=== PATIENT | male | born 1925 | race African-American/Black ===

== ENCOUNTER 2016-09-22 12:58 | Inpatient (IN) | payer MEDICARE, BC ==
[~2016-09-22 12:58] MED LIST: CHOL4 GT; DUONI NEB; ENOX40P SQ; HYOS0.1231 GT; LACTG GT; LEVO.112 G-TUBE; LOMO PO; MIRA0.25 GT; MURO2SOL OP; NORC7.5T PO; ROTI4DIS TD; SINE25100 GT; XALA0.00 EACH EYE
[2016-09-22 13:32] VITALS: BP 106/57; PULSE 85; RESP 16; TEMP 99.2; O2SAT 95
[2016-09-22] MEDS ORDERED: SODIUM CHLOR 0.9% 1000 ML INJ 1,000 ML IV SCH (13:44)
[2016-09-22] MEDS ORDERED: NEBUMIS6 INH (13:45)
[2016-09-22] MEDS ORDERED: FAMO20TA2 PO (13:45)
[2016-09-22] MEDS ORDERED: IPRASOL INH (13:45)
[2016-09-22] MEDS ORDERED: HYOS0.128 PO (13:45)
[2016-09-22] MEDS ORDERED: OXYB5TAB10 PO (13:45)
[2016-09-22] MEDS ORDERED: SODIUM CHLORIDE 0.9% FLUSH 10 ML FLUSH IVF PRN (13:45)
--- NOTE | 2016-09-22 14:11 | PD ---
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 The patient has a history of Parkinson's disease and then had a hypoxic event while hospitalized secondary to aspiration. The patient currently has contractures of the upper and lower extremities and is bedbound. The patient does have home nursing care and lives at home with family. The family states they were unable to flush the GJ tube earlier today. The patient is nutritionally supported by the GJ tube and does not swallow. The patient also has a chronic tracheostomy. The patient is nonverbal upon arrival is unable to provide any history, however, family provides significant history of bedside. The patient does have a history of recurrent UTIs and was recently treated with Levaquin and Flagyl after being hospitalized at [facility]. The patient has a known sacral decubitus ulcer which they state has been improving. The patient also recently underwent physical therapy while at home for the contractures, that is recently ended. The patient's primary physician is Dr. Denice Maxwell. [facility] Past Medical History Hx Anticoagulant Therapy: No Alzheimer's Disease: No Arthritis: Yes (knees?) Asthma: No Autoimmune Disease: No Depression: No Heart Rhythm Problems: No Cancer: Yes (PROSTATE) Cardiovascular Problems: Yes High Cholesterol: No Chemotherapy: No Chest Pain: No Congestive Heart Failure: No COPD: No Cerebrovascular Accident: No Dementia: No Diabetes: No Diminished Hearing: No Endocrine: Yes Gastrointestinal Disorders: Yes (soft stools) GERD: No Genitourinary: Yes (INCONTINENCE) Headaches: No Hiatal Hernia: Yes (in the 60s) Hypertension: Yes (now orthostatic hypotension, not taking htn meds ) Immune Disorder: No Implanted Vascular Access Dvce: Yes Kidney Stones: No Medical other: Yes (contractures) Musculoskeletal: Yes Neurologic: Yes (lewy bodies syndrome, PARKINSON) Parkinson's Disease: Yes Psychiatric: No Reproductive: No Respiratory: Yes (PNEUMONIA) Migraines: No Radiation Therapy: No Renal Failure: No Seizures: No Sickle Cell Disease: No Sleep Apnea: No Thyroid Disease: Yes Ulcer: No Past Surgical History Abdominal Surgery: Yes (liposuction) Appendectomy: Yes Body Medical Devices: penile Cardiac Surgery: No Cholecystectomy: Yes Ear Surgery: No Endocrine Surgery: No Eye Surgery: Yes (cataract dominguez, r corneal implant) Genitourinary Surgery: Yes (prostate surgery and penile implant) Gynecologic Surgery: No Neurologic Surgery: No Oral Surgery: No Prostatectomy: Yes () Thoracic Surgery: Yes (Gallbladder) Tonsillectomy: Yes Other Surgery: Yes Family History Family Hypercholesterolemia: Yes Social History Alcohol Use: No Tobacco Use: No Substance Use: No Allergies-Medications (Allergen,Severity, Reaction): Coded Allergies: Aricept (Verified Allergy, Severe, 12/22/15) FAMILY CANNOT DESCRIBE REACTION Ativan (Verified Allergy, Unknown, 12/22/15) DOCTORS TOLD FAMILY HE SHOULD NOT BE GIVEN THIS MED Celexa (Verified Allergy, Unknown, 12/22/15) *MDRO Multi-Drug Resistant Organism (Verified Adverse Reaction, Unknown, ) MRSA (urine) - 06/14/2015; (blood) - 07/2015; (buttock) - 12/2015 MRSA PCR Screen POSITIVE - 06/14/2015 Reported Meds & Prescriptions Reported Meds & Active Scripts Active Reported Duoneb (Ipratropium-Albuterol Neb) 0.5-2.5 Mg/3 Ml Neb 1 Nebule INH Q4HR NEB Ditropan (Oxybutynin Chloride) 5 Mg Tab 5 Mg PO Q12HR Famotidine 20 Mg Tab 20 Mg PO BID Hyoscyamine (Hyoscyamine Sulfate) 0.125 Mg Tab 0.125 Mg PO TID [Nebulizer] 1 Unit INH DAILY Review of Systems ROS Limitations: Other: (history obtained from family) Except as stated in HPI: all other systems reviewed are Neg General / Constitutional: No: Fever Gastrointestinal: Positive: Other (clog GJ tube) Musculoskeletal: Positive: Other (chronic contractures) Neurologic: Positive: Other (nonverbal) Physical Exam Narrative GENERAL: Awake, eyes open, 89-year-old after [place] male who appears his stated age and is in no acute respiratory distress. SKIN: Focused skin assessment warm/dry. Stage II sacral decubitus ulcer is approximately 15 cm x 15 cm. HEAD: Slightly diaphoretic. EYES: Right pupils 2 mm with cloudy lens. Left pupil is 3 mm and reactive. ENT: No nasal bleeding or discharge. Dry mucous membranes. NECK: Trachea midline. No JVD. Tracheostomy in place. CARDIOVASCULAR: Regular rate and rhythm. No murmur appreciated. RESPIRATORY: No accessory muscle use. Diminished breath sounds in the bases. GASTROINTESTINAL: Abdomen soft, well-healed midline surgical scar. GGT was in place. MUSCULOSKELETAL: Contractures of the upper and lower extremities. Heel boots in place. NEUROLOGICAL: Awake and alert. Nonverbal. Unable to follow commands. PSYCHIATRIC: Unable to assess. Data Data Last Documented VS Vital Signs Date Time Temp Pulse Resp B/P Pulse Ox O2 Delivery O2 Flow Rate FiO2 09/22/16 13:33 95 Nasal Cannula 2 09/22/16 13:32 99.2 85 16 106/57 Orders Complete Blood Count With Diff (09/22/16 13:44) Comprehensive Metabolic Panel (09/22/16 13:44) Creatine Kinase (Cpk) (09/22/16 13:44) Urinalysis - C+S If Indicated (09/22/16 13:44) Blood Glucose (09/22/16 13:44) Ecg Monitoring (09/22/16 13:44) Iv Access Insert/Monitor (09/22/16 13:44) Oximetry (09/22/16 13:44) Sodium Chloride 0.9% Flush (Ns Flush) (09/22/16 13:45) Sodium Chlor 0.9% 1000 Ml Inj (Ns 1000 M (09/22/16 13:44) Abdomen, Kub Only (09/22/16 ) Lactic Acid (09/22/16 13:44) Blood Culture (09/22/16 13:44) Chest, Single Ap (09/22/16 ) Urine Culture (09/22/16 14:00) Abdomen, Kub Only (09/22/16 ) Labs Laboratory Tests Test 09/22/16 09/22/16 14:00 14:03 White Blood Count 7.0 TH/MM3 Red Blood Count 3.82 MIL/MM3 Hemoglobin 10.1 GM/DL Hematocrit 30.9 % Mean Corpuscular Volume 80.9 FL Mean Corpuscular Hemoglobin 26.4 PG Mean Corpuscular Hemoglobin 32.7 % Concent Red Cell Distribution Width 17.5 % Platelet Count 432 TH/MM3 Mean Platelet Volume 6.9 FL Neutrophils (%) (Auto) 62.9 % Lymphocytes (%) (Auto) 19.3 % Monocytes (%) (Auto) 8.4 % Eosinophils (%) (Auto) 8.9 % Basophils (%) (Auto) 0.5 % Neutrophils # (Auto) 4.4 TH/MM3 Lymphocytes # (Auto) 1.4 TH/MM3 Monocytes # (Auto) 0.6 TH/MM3 Eosinophils # (Auto) 0.6 TH/MM3 Basophils # (Auto) 0.0 TH/MM3 CBC Comment DIFF FINAL Differential Comment Urine Color YELLOW Urine Turbidity HAZY Urine pH 7.5 Urine Specific [place] 1.010 Urine Protein TRACE mg/dL Urine Glucose (UA) NEG mg/dL Urine Ketones NEG mg/dL Urine Occult Blood TRACE Urine Nitrite POS Urine Bilirubin NEG Urine Urobilinogen LESS THAN 2.0 MG/DL Urine Leukocyte Esterase LARGE Urine RBC 4 /hpf Urine WBC /hpf Urine WBC Clumps RARE Urine Bacteria MANY /hpf Microscopic Urinalysis Comment CATH-CULTURE IND Sodium Level 137 MEQ/L Potassium Level 4.7 MEQ/L Chloride Level 99 MEQ/L Carbon Dioxide Level 31.3 MEQ/L Anion Gap 7 MEQ/L Blood Urea Nitrogen 14 MG/DL Creatinine 0.62 MG/DL Estimat Glomerular Filtration 148 ML/MIN Rate Random Glucose 93 MG/DL Calcium Level 8.4 MG/DL Total Bilirubin 0.2 MG/DL Aspartate Amino Transf 20 U/L (AST/SGOT) Alanine Aminotransferase 6 U/L (ALT/SGPT) Alkaline Phosphatase 57 U/L Total Creatine Kinase 97 U/L Total Protein 7.0 GM/DL Albumin 2.4 GM/DL Lactic Acid Level 0.8 mmol/L MDM Medical Decision Making Medical Screen Exam Complete: Yes Emergency Medical Condition: Yes Medical Record Reviewed: Yes Interpretation(s) Laboratory Tests Test 09/22/16 09/22/16 14:00 14:03 White Blood Count 7.0 TH/MM3 Red Blood Count 3.82 MIL/MM3 Hemoglobin 10.1 GM/DL Hematocrit 30.9 % Mean Corpuscular Volume 80.9 FL Mean Corpuscular Hemoglobin 26.4 PG Mean Corpuscular Hemoglobin 32.7 % Concent Red Cell Distribution Width 17.5 % Platelet Count 432 TH/MM3 Mean Platelet Volume 6.9 FL Neutrophils (%) (Auto) 62.9 % Lymphocytes (%) (Auto) 19.3 % Monocytes (%) (Auto) 8.4 % Eosinophils (%) (Auto) 8.9 % Basophils (%) (Auto) 0.5 % Neutrophils # (Auto) 4.4 TH/MM3 Lymphocytes # (Auto) 1.4 TH/MM3 Monocytes # (Auto) 0.6 TH/MM3 Eosinophils # (Auto) 0.6 TH/MM3 Basophils # (Auto) 0.0 TH/MM3 CBC Comment DIFF FINAL Differential Comment Urine Color YELLOW Urine Turbidity HAZY Urine pH 7.5 Urine Specific [place] 1.010 Urine Protein TRACE mg/dL Urine Glucose (UA) NEG mg/dL Urine Ketones NEG mg/dL Urine Occult Blood TRACE Urine Nitrite POS Urine Bilirubin NEG Urine Urobilinogen LESS THAN 2.0 MG/DL Urine Leukocyte Esterase LARGE Urine RBC 4 /hpf Urine WBC /hpf Urine WBC Clumps RARE Urine Bacteria MANY /hpf Microscopic Urinalysis Comment CATH-CULTURE IND Sodium Level 137 MEQ/L Potassium Level 4.7 MEQ/L Chloride Level 99 MEQ/L Carbon Dioxide Level 31.3 MEQ/L Anion Gap 7 MEQ/L Blood Urea Nitrogen 14 MG/DL Creatinine 0.62 MG/DL Estimat Glomerular Filtration 148 ML/MIN Rate Random Glucose 93 MG/DL Calcium Level 8.4 MG/DL Total Bilirubin 0.2 MG/DL Aspartate Amino Transf 20 U/L (AST/SGOT) Alanine Aminotransferase 6 U/L (ALT/SGPT) Alkaline Phosphatase 57 U/L Total Creatine Kinase 97 U/L Total Protein 7.0 GM/DL Albumin 2.4 GM/DL Lactic Acid Level 0.8 mmol/L Differential Diagnosis Differential diagnosis includes clogged GJ tube, GJ tube malfunction, dehydration, UTI, pneumonia, sepsis, electrolyte abnormality. Narrative Course IV was established, labs are drawn and sent, and the patient was placed on cardiac telemetry monitoring and continuous pulse oximetry monitoring. Chest x- ray was obtained. Nursing staff was unable to flush the GJ tube at bedside. Therefore, formal KUB with Gastrografin was ordered to evaluate if tube is patent. UA was sent to lab. The patient was administered 1 L of IV fluids. UA reveals contaminated UA, therefore, patient was administered Rocephin. White count is normal, lactic acid is normal. Chest x-ray reveals no acute changes. Abdominal x-ray reveals Gastrografin within the stomach and jejunum, however, when the patient was brought back to the echo pod, nursing staff was unable to flush the jejunostomy tube, was able to minimally flush the gastrostomy tube. The patient was administered Rocephin for the UTI, will need to be 23 hour observation for consultation to interventional radiology for GJ tube placement. Physician Communication [facility] Diagnosis Primary Impression: UTI (urinary tract infection) Qualified Code: T83.511A - Urinary tract infection associated with indwelling urethral catheter, initial encounter Additional Impression: Malfunctioning jejunostomy tube Admitting Information Admitting Physician Requests: Observation Condition: Stable Thee Richardson MD Sep 22, 2016 14:11
[2016-09-22 14:26] LABS: AUTOMATED NEUTROPHIL # 4.4 TH/MM3 (1.8-7.7); BASOPHIL % 0.5 % (0.0-2.0); EOSINOPHIL # 0.6 TH/MM3 (0-0.4); EOSINOPHIL % 8.9 % (0.0-4.0); HEMATOCRIT 30.9 % (39.0-51.0); HEMO FLAGS DIFF FINAL; LYMPH % 19.3 % (9.0-44.0); LYMPHOCYTE # 1.4 TH/MM3 (1.0-4.8); MEAN CELL VOLUME 80.9 FL (80.0-100.0); MEAN CORPUSCULAR HEMOGLOBIN 26.4 PG (27.0-34.0); MEAN CORPUSCULAR HGB CONC 32.7 % (32.0-36.0); MONO % 8.4 % (0.0-8.0); NEUT % 62.9 % (16.0-70.0); PLATELET COUNT 432 TH/MM3 (150-450); RED BLOOD COUNT 3.82 MIL/MM3 (4.50-5.90); RED CELL DISTRIBUTION WIDTH 17.5 % (11.6-17.2)
[2016-09-22 14:32] LABS: BACTERIA, URINE MANY /hpf; BLOOD, URINE TRACE (NEG); COMMENT (UR) CATH-CULTURE IND; CULTURE IF INDICATED CATH CULTURE IND; GLUCOSE,URINE NEG (NEG); KETONE, URINE NEG (NEG); NITRITE,URINE POS (NEG); PH, URINE 7.5 (5.0-8.5); URINE COLOR YELLOW (YELLW/STRAW)
[2016-09-22 14:43] LABS: ALKALINE PHOSPHATASE 57 U/L (45-117); ALT (GPT) 6 U/L (12-78); ANION GAP 7 MEQ/L (5-15); AST (GOT) 20 U/L (15-37); BICARBONATE 31.3 MEQ/L (21.0-32.0); BLOOD UREA NITROGEN 14 MG/DL (7-18); CHLORIDE 99 MEQ/L (98-107); CREATINE KINASE 97 U/L (39-308); GLOMERULAR FILTRATION RATE 148 ML/MIN (>89); POTASSIUM 4.7 MEQ/L (3.5-5.1); SODIUM (NA) 137 MEQ/L (136-145); TOTAL BILIRUBIN ADULT 0.2 MG/DL (0.2-1.0)
--- NOTE | 2016-09-22 14:50 | RADRPT ---
EXAM DATE/TIME: 09/22/2016 14:17 [facility] COMPARISON: CHEST SINGLE AP, January 14, 2016, 17:41. INDICATIONS : Fever. MEDICAL HISTORY : mrsa, Parkinson's, prostate cancer, tuberculosis as a child. SURGICAL HISTORY : Cholecystectomy. prostate removed,inguinal hernia, tracheostomy ENCOUNTER: Initial ACUITY: 1 day PAIN SCORE: Non-responsive. LOCATION: Bilateral chest FINDINGS: Supine AP view of the chest demonstrates a normal-sized cardiac silhouette. Tracheostomy overlies the tracheal air shadow. Lungs are underinflated with likely atelectasis at the bases. Due to technique lung parenchyma is not optimally evaluated. No definite pneumothorax, effusion, or consolidation is a ppreciated. Bones demonstrate no acute finding. CONCLUSION: Underinflated examination with likely atelectasis at the lung bases. Technique results in less than o ptimal evaluation of the lung parenchyma but no acute finding is identified. Jay Choudhury MD on September 22, 2016 at 14:46 Board Certified Radiologist. This report was verified electronically.
--- NOTE | 2016-09-22 14:51 | RADRPT ---
EXAM DATE/TIME: 09/22/2016 14:20 [facility] COMPARISON: ABDOMEN KUB ONLY, December 25, 2015, 12:15. INDICATIONS : Possible obstruction. MEDICAL HISTORY : Carcinoma, prostatic. SURGICAL HISTORY : Cholecystectomy. inguinal hernia, prostate removed ENCOUNTER: Initial ACUITY: 1 day PAIN SCORE: Non-responsive. LOCATION: Bilateral abdomen FINDINGS: Single supine frontal view of the abdomen demonstrates air within bowel without a pattern to suggest obstruction. There is likely a large amount stool within the rectum. Patient's arms overlie the upper abdomen bilaterally. A GJ tube is present with tip terminating somewhere in the left upper quadrant. Innumerable clips overlie the pelvis. Presumed rectal tube is present. No acute osseous abnormality is identified. CONCLUSION: 1. There are no findings to indicate bowel obstruction. There is likely a large amount of stool in th e rectum. 2. GJ tube remains present and distal tip is not definitively seen since the patient's arms overly th e upper abdomen. Jay Choudhury MD on September 22, 2016 at 14:48 Board Certified Radiologist. This report was verified electronically.
--- NOTE | 2016-09-22 15:29 | RADRPT ---
EXAM DATE/TIME: 09/22/2016 14:20 [facility] COMPARISON: ABDOMEN KUB ONLY, December 25, 2015, 12:15. INDICATIONS : Possible obstruction, abdomen with gastrografin MEDICAL HISTORY : Parkinson's, prostate ca, tb as a child SURGICAL HISTORY : Cholecystectomy. inguinal hernia, prostate removed ENCOUNTER: Initial ACUITY: 1 day PAIN SCORE: Non-responsive. LOCATION: Bilateral abdomen FINDINGS: Supine view the abdomen demonstrates contrast injected via the patient's gastrojejunostomy tube. Ther e is contrast opacifying the stomach and the proximal small bowel. Contrast does not extend distal to this point. CONCLUSION: Contrast within the stomach and proximal small intestinal loop. Mason Clayton MD on September 22, 2016 at 15:26 Board Certified Radiologist. This report was verified electronically.
[2016-09-22] MEDS ORDERED: MORPHINE SULFATE 4 MG/ML INJ IV PRN (17:15)
[2016-09-22] MEDS ORDERED: NALOXONE HCL 0.4 MG/ML AMP IV PRN (17:15)
[2016-09-22] MEDS ORDERED: ONDANSETRON HCL 4 MG/2 ML VIAL IVP PRN (17:15)
[2016-09-22] MEDS ORDERED: IOHEXOL 350 MG/ML 50 ML BTL (for RAD DIAG) G-TUBE ONE (17:58)
--- NOTE | 2016-09-22 18:05 | PD.RAD ---
Post Procedure Progress Note Pre Procedure Diagnosis: (1) Occluded feeding tube Post Procedure Diagnosis: (1) Occluded feeding tube Procedure Date: Sep 22, 2016 Supervising Radiologist: Narayan Lake Proceduralist/Assist: Coby Sabillon, RT(R), Kuldeep Patel RT(R) Plan of Activity Patient to Unit: Other Patient Condition: Fair See PACS Report for procedural detail/treatment Feeding Tube Gastro/Jejunostomy Replacement Narayan Lake MD Sep 22, 2016 18:05
--- NOTE | 2016-09-22 18:54 | HHI.HP ---
. [facility] Denice Stratton MD Admission Diagnosis complicated urinary tract infection, obstructed GJ tube Diagnoses: Chief Complaint: Called PEG tube Travel History International Travel<30 Days: No Contact w/Intl Traveler <30 Da: No Traveled to Known Affected Are: No History of Present Illness Mr. Olivia is in 89-year-old male with a known history of advanced Parkinson's disease, multiple contractures, tracheostomy, sacral decubitus ulcer, and PEG tube. Patient is seen at bedside with daughter and home nurse, patient is nonverbal history is taken from family at bedside. Patient presents to the ED for a clogged PEG tube. IR was consulted to replace PEG tube, status post replacement today. Patient has an indwelling urinary catheter with history of tension. Per patient family, catheter was changed last week. Patient does live at home with 24-hour care from family/nurse. Patient is a little diaphoretic at this time, family denies noticing any previously sweating, fevers. Review of Systems ROS Limitations: Clinical Condition, Poor Historian Except as stated in HPI: all other systems reviewed are Neg Past Family Social History Past Medical History History Endocarditis Parkinson's disease Alzheimer's disease Hypertension orthostatic hypotension prostate cancer, status post resection In the past year, acute respiratory failure, prolonged hospitalization and ICU, permanent tracheostomy placement. Past Surgical History Appendectomy Cholecystectomy Prostatectomy Tonsillectomy G tube placement Tracheostomy Reported Medications Reported Meds & Active Scripts Active Reported Duoneb (Ipratropium-Albuterol Neb) 0.5-2.5 Mg/3 Ml Neb 1 Nebule INH Q4HR NEB Ditropan (Oxybutynin Chloride) 5 Mg Tab 5 Mg PO Q12HR Famotidine 20 Mg Tab 20 Mg PO BID Hyoscyamine (Hyoscyamine Sulfate) 0.125 Mg Tab 0.125 Mg PO TID [Nebulizer] 1 Unit INH DAILY Allergies: Coded Allergies: Aricept (Verified Allergy, Severe, 12/22/15) FAMILY CANNOT DESCRIBE REACTION Ativan (Verified Allergy, Unknown, 12/22/15) DOCTORS TOLD FAMILY HE SHOULD NOT BE GIVEN THIS MED Celexa (Verified Allergy, Unknown, 12/22/15) *MDRO Multi-Drug Resistant Organism (Verified Adverse Reaction, Unknown, ) MRSA (urine) - 06/14/2015; (blood) - 07/2015; (buttock) - 12/2015 MRSA PCR Screen POSITIVE - 06/14/2015 Active Ordered Medications Current Medications Medications (Trade) Dose Ordered Sig/Jeanna Route Start Time Stop Time Status Last Admin (NS Flush) 2 ml UNSCH PRN IVF 09/22/16 13:45 (Pepcid) 20 mg BID PO 09/22/16 21:00 (Levsin) 0.125 mg TID PO 09/22/16 18:00 Oxybutynin Chloride 5 mg 5 mg Q12HR PO 09/22/16 21:00 (NS 1000 ml Inj) 1,000 ml @ 100 mls/hr Q10H IV 09/22/16 17:01 (NS Flush) 2 ml UNSCH PRN IV FLUSH 09/22/16 17:15 (NS Flush) 2 ml BID IV FLUSH 09/22/16 21:00 (Zofran Inj) 4 mg Q6H PRN IVP 09/22/16 17:15 (Morphine Inj) 2 mg Q3H PRN IV 09/22/16 17:15 Naloxone HCl 0.4 mg 0.4 mg UNSCH PRN IV 09/22/16 17:15 (Rocephin Inj/NS Inj) 100 ml @ 200 mls/hr Q24H IV 09/22/16 18:00 Family History Family history significant for CAD. 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 Patient lives at home with family and 24-hour caregiver. Physical Exam Vital Signs Vital Signs Date Time Temp Pulse Resp B/P Pulse Ox O2 Delivery O2 Flow Rate FiO2 09/22/16 13:33 95 Nasal Cannula 2 09/22/16 13:32 99.2 85 16 106/57 95 Physical Exam GENERAL: Thin, contracted patient in no apparent distress SKIN: Warm and dry. No rash. Sacral decubitus ulcer present. HEENT: Normocephalic. Atraumatic. Pupils equal and round. No scleral icterus. No injection or drainage. No nasal bleeding or discharge. Mucous membranes pink and moist. NECK: Supple. Trachea midline. Tracheostomy present. CARDIOVASCULAR: Regular rate and rhythm. S1, S2 noted. No murmur appreciated. RESPIRATORY: No accessory muscle use. Breath sounds coarse throughout. Breath sounds equal bilaterally. GASTROINTESTINAL: Abdomen soft, non-tender, nondistended. Normoactive bowel sounds x4. Right upper quadrant PEG tube noted. MUSCULOSKELETAL: Severe contractures noted. Extremities without clubbing, cyanosis, or edema. NEUROLOGICAL: Awake and alert. Nonverbal. Laboratory Laboratory Tests Test 09/22/16 09/22/16 14:00 14:03 White Blood Count 7.0 Red Blood Count 3.82 Hemoglobin 10.1 Hematocrit 30.9 Mean Corpuscular Volume 80.9 Mean Corpuscular Hemoglobin 26.4 Mean Corpuscular Hemoglobin 32.7 Concent Red Cell Distribution Width 17.5 Platelet Count 432 Mean Platelet Volume 6.9 Neutrophils (%) (Auto) 62.9 Lymphocytes (%) (Auto) 19.3 Monocytes (%) (Auto) 8.4 Eosinophils (%) (Auto) 8.9 Basophils (%) (Auto) 0.5 Neutrophils # (Auto) 4.4 Lymphocytes # (Auto) 1.4 Monocytes # (Auto) 0.6 Eosinophils # (Auto) 0.6 Basophils # (Auto) 0.0 CBC Comment DIFF FINAL Differential Comment Urine Color YELLOW Urine Turbidity HAZY Urine pH 7.5 Urine Specific [place] 1.010 Urine Protein TRACE Urine Glucose (UA) NEG Urine Ketones NEG Urine Occult Blood TRACE Urine Nitrite POS Urine Bilirubin NEG Urine Urobilinogen LESS THAN 2.0 Urine Leukocyte Esterase LARGE Urine RBC 4 Urine WBC Urine WBC Clumps RARE Urine Bacteria MANY Microscopic Urinalysis Comment CATH-CULTURE IND Sodium Level 137 Potassium Level 4.7 Chloride Level 99 Carbon Dioxide Level 31.3 Anion Gap 7 Blood Urea Nitrogen 14 Creatinine 0.62 Estimat Glomerular Filtration 148 Rate Random Glucose 93 Calcium Level 8.4 Total Bilirubin 0.2 Aspartate Amino Transf 20 (AST/SGOT) Alanine Aminotransferase 6 (ALT/SGPT) Alkaline Phosphatase 57 Total Creatine Kinase 97 Total Protein 7.0 Albumin 2.4 Lactic Acid Level 0.8 Date/Time Procedure Status Source Growth 09/22/16 14:05 Aerobic Blood Culture Received Blood Peripheral Pending 09/22/16 14:05 Anaerobic Blood Culture Received Blood Peripheral Pending 09/22/16 14:00 Urine Culture Received Urine Catheterized Urine Pending Result Diagram: 09/22/16 1400 09/22/16 1400 Imaging Last Impressions Chest X-Ray 09/22/16 0000 Signed Impressions: Service Date/Time: Thursday, September 22, 2016 14:17 - CONCLUSION: Underinflated examination with likely atelectasis at the lung bases. Technique results in less than optimal evaluation of the lung parenchyma but no acute finding is identified. Jay Choudhury MD Abdomen X-Ray 09/22/16 0000 Signed Impressions: Service Date/Time: Thursday, September 22, 2016 14:20 - CONCLUSION: Contrast within the stomach and proximal small intestinal loop. Mason Clayton MD Assessment and Plan Assessment and Plan Mr. Olivia is in 89-year-old male with a known history of advanced Parkinson's disease, multiple contractures, tracheostomy, sacral decubitus ulcer, and PEG tube presents with clotted PEG. G tube malfunction: IR consulted to perform replacement of PEG tube. Resume tube feeds when able. Possible UTI: Patient with indwelling Kingsley, UA with evidence of UTI, afebrile with leukocytosis. Replace Kingsley. IV ceftriaxone empirically. F/u urine culture. DVT prophylaxis: SCDs ATTENDING NOTES 89 yers old male- advanced Parkinson's disease, S/P CVA baseline- is total care , not interactive- admitted for GT malfunction- changed by IR today - tracheostomy in place regular rhythm no rales or wheezes extremities- flexion contractures stage 2 decubitus ulcer seen with caregiver at bedside will start TF and if tolerates well - DC planning Mr Olivia has a 24 hour home health caregiver 1. UTI- kingsley changed -started on rocephin IV. ff blood and urine cultures 2. Advance Parkinson disease- total care 3. chronic respiratory failure- S/P tracheostomy - pulmonary toilette, suctions secretions prn 4. Sacral decubitus -wound care The exam, history, and the medical decision-making described in the above note were completed with the assistance of the mid-level provider. I reviewed and agree with the findings presented. I attest that I had a [id number] encounter with the patient on the same day, and personally performed and documented my assessment and findings in the medical record. Code Status "Full code" Discussed Condition With Dr. Richardson, Dr. Leonardo, patients family. I d/w with home ehath care giv er at bedside 9:00 pm states his daughter is the decision maker- very involved with care Full code Nani Avila Sep 22, 2016 18:54 Timothy Leonardo MD Sep 22, 2016 20:22
[2016-09-22] MEDS: SODIUM CHLOR 0.9% 1000 ML INJ 1,000 ML IV SCH (19:13)
[2016-09-22] MEDS: cefTRIAXone INJ 1,000 MG in SODIUM CHLORIDE 0.9% INJ 100 ML IV SCH (19:13)
[2016-09-22 19:15] VITALS: BP 169/88; PULSE 87; RESP 20; O2SAT 100
[2016-09-22 20:00] VITALS: BP 128/61; PULSE 83; RESP 20; TEMP 99.3; O2SAT 98
[2016-09-22] MEDS: SODIUM CHLORIDE 0.9% FLUSH 10 ML FLUSH IV FLUSH SCH (21:00)
[2016-09-22] MEDS: RESP: ALBUTEROL 2.5 MG/IPRATROPIUM 0.5 MG NEB (SCH) INH (22:41)
[2016-09-22] MEDS: HYOSCYAMINE 0.125 MG TAB PO SCH (23:06)
[2016-09-22] MEDS: FAMOTIDINE 20 MG TAB PO SCH (23:07)
[2016-09-22] MEDS: OXYBUTYNIN CHLORIDE 5 MG TAB PO SCH (23:07)
[2016-09-23] VITALS (8 sets, daily range): BP systolic 100–133; BP diastolic 56–88; PULSE 84–114; RESP 18–24; TEMP 97.3–100.2; O2SAT 96–100
[2016-09-23] MEDS: SODIUM CHLOR 0.9% 1000 ML INJ 1,000 ML IV SCH ×2 (02:08→15:00)
[2016-09-23] MEDS: RESP: ALBUTEROL 2.5 MG/IPRATROPIUM 0.5 MG NEB (SCH) INH ×3 (08:07→19:42)
--- NOTE | 2016-09-23 08:53 | RADRPT ---
EXAM DATE/TIME: 09/22/2016 17:44 [place] COMPARISON: CHANGE OF GJ-TUBE CATHETER, December 24, 2015, 17:19. INDICATIONS : Patient with non-fuctioning transgastric feeding tube in need of tube exchange. MEDICAL HISTORY : History Endocarditis Parkinson's disease Lewy bodies syndrome Hypertension Orthostatic hypotension Thyroid disease HX prostate cancer HX TB SURGICAL HISTORY : Cholecystectomy Appendectomy Prostatectomy Tonsillectomy G-J Tube Liposuction Bilateral cataract with corneal transplant Hiatal hernia ENCOUNTER: Subsequent ACUITY: 1 day PAIN SCORE: 0/10 FLUORO TIME: 7.1 minutes IMAGE SERIES: 2 CONTRAST: 20 cc Omnipaque (iohexol) 350 DEVICE(S): 1.) 22 Chinese Transgastric tube PROCEDURE : 1. Fluoroscopically guided gastrojejunostomy tube exchange. 2. Conscious sedation with continuous EKG and oximetry monitoring. The risks, benefits and alternatives to the procedure were explained and verbal and written consent w as obtained. The site was prepped in sterile fashion. Full sterile technique was used, including ca p, mask, sterile gloves and gown and a large sterile sheet. Hand hygiene and 2% chlorhexidine and/or betadine/alcohol prep was utilized per protocol for cutaneous antisepsis. The skin and subcutaneous tissues were infiltrated with local anesthetic solution. With fluoroscopic guidance a guidewire was passed through the previous gastrojejunostomy tube and a f resh tube was placed over the guidewire. The balloon was inflated with appropriate volume of saline. Injection of positive contrast demonstrates good position of the gastric and jejunal lumens of the tube. Conscious sedation was performed with the prescribed dosages and duration as above in the presence of an independent trained radiology nurse to assist in the monitoring of the patient. EKG and oximetry remained stable throughout the procedure. The patient tolerated the procedure well and there were n o complications. The patient was sent to post anesthesia recovery in stable condition. CONCLUSION: Uncomplicated gastrojejunostomy tube exchange as above. Narayan Lake MD on September 23, 2016 at 8:52 Board Certified Radiologist. This report was verified electronically.
[2016-09-23] MEDS: FAMOTIDINE 20 MG TAB PO SCH ×2 (10:12→21:35)
[2016-09-23] MEDS: HYOSCYAMINE 0.125 MG TAB PO SCH ×3 (10:12→17:16)
[2016-09-23] MEDS: OXYBUTYNIN CHLORIDE 5 MG TAB PO SCH ×2 (10:12→21:35)
[2016-09-23] MEDS: SODIUM CHLORIDE 0.9% FLUSH 10 ML FLUSH IV FLUSH SCH ×2 (10:19→21:00)
--- NOTE | 2016-09-23 14:01 | EKG ---
Date Performed: 09/22/2016 Time Performed: 21:32:24 PTAGE: 89 years EKG: Sinus rhythm Compared to previous tracing, heart rate is slower. NORMAL ECG PREVIOUS TRACING : 01/09/2016 17.20 DOCTOR: Randell Parson Interpretating Date/Time 09/23/2016 14:01:04
[2016-09-23] MEDS: cefTRIAXone INJ 1,000 MG in SODIUM CHLORIDE 0.9% INJ 100 ML IV SCH (17:16)
--- NOTE | 2016-09-23 17:32 | HHI.PR ---
Subjective Remarks tolerating tube feedings low grade fever Objective Vitals Vital Signs Date Time Temp Pulse Resp B/P Pulse Ox O2 Delivery O2 Flow Rate FiO2 09/23/16 14:30 100.2 114 20 121/58 97 09/23/16 11:44 98.4 98 20 108/57 96 09/23/16 08:30 97.9 85 20 121/59 97 09/23/16 08:11 96 T-piece 28 09/23/16 04:00 98.1 99 20 133/88 97 09/23/16 00:00 97.3 84 18 117/56 100 09/22/16 20:00 99.3 83 20 128/61 98 09/22/16 19:15 87 20 169/88 100 Trach Collar 3 I/O 09/22/16 09/22/16 09/22/16 09/23/16 09/23/16 09/23/16 07:00 15:00 23:00 07:00 15:00 23:00 Intake Total 966 ml Output Total 400 ml Balance -400 ml 966 ml Intake IV Total 966 ml Output Urine Total 400 ml # Bowel Movements 1 3 Result Diagram: 09/22/16 1400 09/22/16 1400 Imaging Last Impressions Tube Change 09/22/16 0000 Signed Impressions: Service Date/Time: Thursday, September 22, 2016 17:44 - CONCLUSION: Uncomplicated gastrojejunostomy tube exchange as above. Narayan Lake MD Chest X-Ray 09/22/16 0000 Signed Impressions: Service Date/Time: Thursday, September 22, 2016 14:17 - CONCLUSION: Underinflated examination with likely atelectasis at the lung bases. Technique results in less than optimal evaluation of the lung parenchyma but no acute finding is identified. Jay Choudhury MD Abdomen X-Ray 09/22/16 0000 Signed Impressions: Service Date/Time: Thursday, September 22, 2016 14:20 - CONCLUSION: Contrast within the stomach and proximal small intestinal loop. Mason Clayton MD Objective Remarks resting quietly, nonverbal anicteric tracheostomy tube in place- capped few rhonchi regular rhythm PEG site- clean, extremities- atrophied, some contractures Procedures PEG replacement- 09/22 Urinary Catheter: Yes Kingsley insert reason: Prolonged Immobilization Date of Insertion: Sep 22, 2016 A/P Assessment and Plan 89 yers old male- advanced Parkinson's disease, S/P CVA baseline- is total care , not interactive- admitted for 1. GT malfunction-PEG changed 09/22 -TF feedings restarted. tracheostomy in place 2. Advanced Parkinson's - extremities- flexion contractures 3. MRSA Sepsis -Start IV Vancomycin- pharmacy consult. ff final sensitivity - Infectious disease consult 4. UTI- continue on Rocephin- kingsley changed on admission 09/22 5. stage 2 decubitus ulcer -wound care team consult seen with caregiver at bedside Mr Olivia has a 24 hour home health caregiver updated daughter Giorgio on the phone Timothy Leonardo MD Sep 23, 2016 17:32
[2016-09-23] MEDS ORDERED: VANCOMYCIN INJ 1,000 MG in SODIUM CHLOR 0.9% 250 ML INJ 250 ML IV ONE (17:45)
[2016-09-23] MEDS ORDERED: Vancomycin Consult Pharmacy 1 EA OTHER SCH (17:45)
[2016-09-24] VITALS (8 sets, daily range): BP systolic 95–146; BP diastolic 50–91; PULSE 91–102; RESP 18–24; TEMP 97.8–99.5; O2SAT 97–100
[2016-09-24] MEDS: HYOSCYAMINE 0.125 MG TAB PO SCH ×3 (07:47→16:52)
[2016-09-24] MEDS: FAMOTIDINE 20 MG TAB PO SCH ×2 (07:47→21:55)
[2016-09-24] MEDS: OXYBUTYNIN CHLORIDE 5 MG TAB PO SCH ×2 (07:47→21:55)
[2016-09-24 08:00] LABS: AUTOMATED NEUTROPHIL # 5.1 TH/MM3 (1.8-7.7); BASOPHIL # 0.1 TH/MM3 (0-0.2); BASOPHIL % 0.7 % (0.0-2.0); EOSINOPHIL # 0.5 TH/MM3 (0-0.4); EOSINOPHIL % 7.1 % (0.0-4.0); HEMO FLAGS DIFF FINAL; LYMPH % 16.3 % (9.0-44.0); LYMPHOCYTE # 1.2 TH/MM3 (1.0-4.8); MEAN CORPUSCULAR HEMOGLOBIN 25.9 PG (27.0-34.0); MEAN CORPUSCULAR HGB CONC 31.6 % (32.0-36.0); MONO % 6.5 % (0.0-8.0); NEUT % 69.4 % (16.0-70.0); PLATELET COUNT 353 TH/MM3 (150-450); RED BLOOD COUNT 3.66 MIL/MM3 (4.50-5.90); RED CELL DISTRIBUTION WIDTH 17.6 % (11.6-17.2); WHITE BLOOD COUNT 7.4 TH/MM3 (4.0-11.0)
[2016-09-24 08:20] LABS: BICARBONATE 28.6 MEQ/L (21.0-32.0); POTASSIUM 3.9 MEQ/L (3.5-5.1)
[2016-09-24] MEDS: RESP: ALBUTEROL 2.5 MG/IPRATROPIUM 0.5 MG NEB (SCH) INH ×2 (08:58→20:11)
[2016-09-24] MEDS: SODIUM CHLORIDE 0.9% FLUSH 10 ML FLUSH IV FLUSH SCH ×2 (09:00→21:56)
[2016-09-24] MEDS ORDERED: cefTRIAXone INJ 1,000 MG in SODIUM CHLORIDE 0.9% INJ 100 ML IV SCH (11:00)
[2016-09-24] MEDS: VANCOMYCIN INJ 1,250 MG in SODIUM CHLOR 0.9% 250 ML INJ 250 ML IV SCH (11:25)
--- NOTE | 2016-09-24 13:45 | HHI.PR ---
Subjective Remarks appears comfortable, tolerating tube feedings Objective Vitals Vital Signs Date Time Temp Pulse Resp B/P Pulse Ox O2 Delivery O2 Flow Rate FiO2 09/24/16 12:41 99.5 92 18 108/55 99 09/24/16 09:01 97 T-piece 28 09/24/16 08:45 98.9 102 18 144/91 100 09/24/16 04:00 98.6 102 24 129/74 100 09/24/16 00:00 98.5 98 24 95/50 97 09/23/16 20:00 99.4 105 24 100/60 99 09/23/16 19:42 97 T-piece 6.00 28 09/23/16 14:30 100.2 114 20 121/58 97 I/O 09/23/16 09/23/16 09/23/16 09/24/16 09/24/16 09/24/16 07:00 15:00 23:00 07:00 15:00 23:00 Intake Total 3551 ml 1032 ml 213 ml Output Total 400 ml 400 ml 300 ml 1000 ml Balance -400 ml 3151 ml 732 ml -787 ml Intake IV Total 2418 ml 396 ml 213 ml Tube Feeding 933 ml 456 ml Other 200 ml 180 ml Output Urine Total 400 ml 400 ml 300 ml 1000 ml # Bowel Movements 1 4 1 Result Diagram: 09/24/16 0710 09/24/16 0710 Imaging Last Impressions Tube Change 09/22/16 0000 Signed Impressions: Service Date/Time: Thursday, September 22, 2016 17:44 - CONCLUSION: Uncomplicated gastrojejunostomy tube exchange as above. Narayan Lake MD Chest X-Ray 09/22/16 0000 Signed Impressions: Service Date/Time: Thursday, September 22, 2016 14:17 - CONCLUSION: Underinflated examination with likely atelectasis at the lung bases. Technique results in less than optimal evaluation of the lung parenchyma but no acute finding is identified. Jay Choudhury MD Abdomen X-Ray 09/22/16 0000 Signed Impressions: Service Date/Time: Thursday, September 22, 2016 14:20 - CONCLUSION: Contrast within the stomach and proximal small intestinal loop. Mason Clayton MD Objective Remarks nonverbal anicteric tracheostomy tube in place- capped no rales, few rhonchi regular rhythm PEG site- clean, kingsley in place sacral decubitus ulcer- edges clean, dry extremities- atrophied, flexion contractures Procedures PEG replacement- 09/22 Urinary Catheter: Yes Assessment to: Continue Kingsley insert reason: Prolonged Immobilization Date of Insertion: Sep 22, 2016 A/P Assessment and Plan 89 yers old male- advanced Parkinson's disease, S/P CVA baseline- is total care , not interactive- admitted for MRSA Sepsis- on Vancomycin Possible PNA-as source suctioning with thick dirty whitish secretions ID consulted send sputum for gram stain- C and S- ask RT to collect sputum E coli UTI- on chronic kingsley - changed 09/22 on Rocephin GT malfunction-PEG changed 09/22 -TF feedings restarted- tolerating tracheostomy in place- capped. duonebs q 6 Advanced Parkinson's - extremities- flexion contractures stage 2 decubitus ulcer -wound care team consulted Impacted stools- in the rectum- do digital manual disimpaction. pericolace once daily TEDS seen with caregiver at bedside Mr Olivia has a 24 hour home health caregiver updated daughter Giorgio on the phone 09/23 Timothy Leonardo MD Sep 24, 2016 13:45
--- NOTE | 2016-09-24 15:49 | MB ---
cc: BETHANY ESCALANTE MD DATE OF CONSULTATION: 09/24/2016. REASON FOR CONSULTATION: Blood culture with MRSA. Urinary tract infection. Chronic Klein catheter. REQUESTING PHYSICIAN: Dr. Leonardo. HISTORY OF PRESENT ILLNESS: This is an 89-year-old black male who has advanced Parkinson's disease and is bedridden. The patient has been fed via a PEG tube. He also has had a chronic indwelling Klein catheter. The patient was brought to the emergency department on 09/22 because of failure to flush his G-J tube. The patient has a history of recurrent urinary tract infections and was recently treated with Levaquin and Flagyl at [facility]. The patient is currently awake with his eyes open but does not meaningfully respond. I am unable to get any information of significance from him except for that which I was able to obtain from his caregiver who takes care of him at home in a supervisory capacity. She states the patient looks okay and that there is really no change in his functioning. The patient had a temperature of 99.2 in the emergency department. Blood cultures were obtained. He also had abnormal urinalysis and the urine culture was also obtained. Blood culture came back with MRSA and Staph coagulase-negative in two bottles. One bottle of the blood culture had MRSA and the fourth bottle had Staph coagulase-negative. Urine culture has E-coli. The patient has had a change of his Klein catheter yesterday. His white blood cell count is normal. He is in no distress. PAST MEDICAL HISTORY: 1. Advanced Parkinson's disease. 2. Alzheimer's disease. 3. Hypertension. 4. Orthostatic hypotension. 5. History of endocarditis. 6. Prostate cancer. 7. Prostatectomy. 8. Cholecystectomy. 9. Appendectomy. 10. Tonsillectomy. 11. Chronic trache. 12. G-tube placement. ALLERGIES: 1. CELEXA. 2. ATIVAN. 3. ARICEPT. MEDICATIONS: 1. Vancomycin. 2. Ceftriaxone. 3. Levsin. 4. Ditropan. 5. Pepcid. SOCIAL HISTORY: The patient is cared for at home by caregivers. No tobacco, alcohol or illicit drugs. FAMILY HISTORY: Noncontributory. REVIEW OF SYSTEMS: Unable to obtain. PHYSICAL EXAMINATION: GENERAL: This is a slender male who is in no acute distress. The patient has contractures of his upper and lower extremities. VITAL SIGNS: Temperature of 99 degrees, blood pressure 108/55, respirations 18, heart rate 92. HEAD, EYES, EARS, NOSE, THROAT: The head is atraumatic. Extraocular movements grossly intact. No icterus. No conjunctival erythema. Oropharynx reveals moist mucosa. NECK: The neck is supple without adenopathy. LUNGS: Decreased breath sounds throughout. HEART: Regular rate and rhythm. No audible murmurs or rubs or gallops. ABDOMEN: Bowel sounds present, soft, nontender. The PEG tube appears intact at the entry site. This is a replaced PEG-tube. There is no visible drainage. No erythema. RECTAL: Not performed. EXTREMITIES: No clubbing or cyanosis or edema. The patient has contractures of the extremities and muscle wasting apparent. NEUROLOGIC: Unable to fully assess. SKIN: No diffuse rash. PSYCHIATRIC: Unable to fully assess. LABORATORY DATA: WBCs 7.4, platelet count 353,000, 69% neutrophils, hemoglobin 9.5. Creatinine 0.6, BUN 13, sodium 141. IMAGING STUDIES: Chest x-ray shows no acute findings. IMPRESSION: 1. Bacteremia due to MRSA. 2. Urinary tract infection due to E-coli. 3. PEG-tube malfunction. RECOMMENDATIONS: 1. Continue vancomycin. 2. Follow the blood cultures for sensitivity of the MRSA. 3. Continue ceftriaxone for treatment of the urinary tract infection. 4. Repeat urine culture in a day or two to check for effectiveness of the treatment. 5. Repeat the blood cultures again tomorrow to check for clearance. The source of the bacteremia with MRSA and Staph epidermidis is unclear at this point. The patient reportedly has decubiti ulceration and we may have to get a culture from that site as well. Thank you this consultation. The patient's progress will be monitored and further recommendations will be given on followup if necessary. Bethany Escalante MD FD/KAYLYN /1:52 PM /3:37 PM
[2016-09-24] MEDS: cefTRIAXone INJ 1,000 MG in SODIUM CHLORIDE 0.9% INJ 100 ML IV SCH (16:53)
[2016-09-24] MEDS: DOCUSATE SODIUM 50 MG/SENNA 8.6 MG TAB G-TUBE SCH (16:54)
[2016-09-24] MEDS: SODIUM CHLOR 0.9% 1000 ML INJ 1,000 ML IV SCH (21:56)
[2016-09-25] VITALS (10 sets, daily range): BP systolic 117–156; BP diastolic 67–99; PULSE 78–111; RESP 16–24; TEMP 98–99.3; O2SAT 95–100
[2016-09-25] MEDS: RESP: ALBUTEROL 2.5 MG/IPRATROPIUM 0.5 MG NEB (SCH) INH ×4 (05:03→20:06)
[2016-09-25] MEDS: VANCOMYCIN INJ 1,250 MG in SODIUM CHLOR 0.9% 250 ML INJ 250 ML IV SCH (06:46)
--- NOTE | 2016-09-25 08:40 | HHI.PR ---
Subjective Remarks tolerating tube feedings needs frequent suctioning- now more of whitish secretions appears comfortable Objective Vitals Vital Signs Date Time Temp Pulse Resp B/P Pulse Ox O2 Delivery O2 Flow Rate FiO2 09/25/16 08:00 98.2 111 17 131/68 96 09/25/16 05:08 98 T-piece 5.00 28 09/25/16 04:00 99.3 106 24 128/76 100 09/25/16 00:00 98.8 100 24 142/67 100 09/24/16 20:11 99 T-piece 28 09/24/16 16:23 97.8 91 18 146/70 100 09/24/16 12:41 99.5 92 18 108/55 99 09/24/16 09:01 97 T-piece 28 09/24/16 08:45 98.9 102 18 144/91 100 I/O 09/24/16 09/24/16 09/24/16 09/25/16 09/25/16 09/25/16 07:00 15:00 23:00 07:00 15:00 23:00 Intake Total 1032 ml 213 ml 2492 ml 1143 ml Output Total 300 ml 2000 ml 300 ml 400 ml Balance 732 ml -1787 ml 2192 ml 743 ml Intake IV Total 396 ml 213 ml 1590 ml 455 ml Tube Feeding 456 ml 722 ml 488 ml Other 180 ml 180 ml 200 ml Output Urine Total 300 ml 2000 ml 300 ml 400 ml # Bowel Movements 1 2 3 1 Result Diagram: 09/24/16 0710 09/24/16 0710 Imaging Last Impressions Tube Change 09/22/16 0000 Signed Impressions: Service Date/Time: Thursday, September 22, 2016 17:44 - CONCLUSION: Uncomplicated gastrojejunostomy tube exchange as above. Narayan Lake MD Chest X-Ray 09/22/16 0000 Signed Impressions: Service Date/Time: Thursday, September 22, 2016 14:17 - CONCLUSION: Underinflated examination with likely atelectasis at the lung bases. Technique results in less than optimal evaluation of the lung parenchyma but no acute finding is identified. Jay Choudhury MD Abdomen X-Ray 09/22/16 0000 Signed Impressions: Service Date/Time: Thursday, September 22, 2016 14:20 - CONCLUSION: Contrast within the stomach and proximal small intestinal loop. Mason Clayton MD Objective Remarks nonverbal anicteric tracheostomy tube in place- capped no rales, + rhonchi- clears up with suctioning regular rhythm PEG site- clean, kingsley in place sacral decubitus ulcer- edges clean, dry extremities- atrophied, flexion contractures Procedures PEG replacement- 09/22 Urinary Catheter: Yes Assessment to: Continue Kingsley insert reason: Prolonged Immobilization Date of Insertion: Sep 22, 2016 A/P Assessment and Plan 89 yers old male- advanced Parkinson's disease, S/P CVA baseline- is total care , not interactive- admitted for MRSA Sepsis- on Vancomycin PNA-as source suctioning with thick dirty whitish secretions Dr. Odell ff send sputum for gram stain- C and S- ask RT to collect sputum Increase Levsin E coli UTI- on chronic kingsley - changed 09/22 continue on Rocephin GT malfunction-PEG changed 09/22 -TF feedings restarted- tolerating tracheostomy in place- capped. duonebs q 6. suctioning prn Advanced Parkinson's - extremities- flexion contractures. restart meds/PEG- will try to get list stage 2 decubitus ulcer -wound care team ff History of hypothyroidism - continue on synthroid pericolace once daily TEDS Mr Olivia has a 24 hour home health caregiver Timothy Leonardo MD Sep 25, 2016 08:40 Timothy Leonardo MD Sep 25, 2016 08:40
[2016-09-25] MEDS: SODIUM CHLORIDE 0.9% FLUSH 10 ML FLUSH IV FLUSH SCH ×2 (09:00→21:00)
[2016-09-25] MEDS: DOCUSATE SODIUM 50 MG/SENNA 8.6 MG TAB G-TUBE SCH (10:31)
[2016-09-25] MEDS: OXYBUTYNIN CHLORIDE 5 MG TAB PO SCH ×2 (10:32→21:21)
[2016-09-25] MEDS: FAMOTIDINE 20 MG TAB PO SCH ×2 (10:32→21:21)
--- NOTE | 2016-09-25 13:42 | HHI.IDPN ---
Note Infectious Disease Note Patient is in no distress. has eyes open. Has carrasco purulent trach secretions. Afebrile. Repeat blood culture pending. Reported to have leakage around his kingsley catheter. PAST MEDICAL HISTORY: 1. Advanced Parkinson's disease. 2. Alzheimer's disease. 3. Hypertension. 4. Orthostatic hypotension. 5. History of endocarditis. 6. Prostate cancer. 7. Prostatectomy. 8. Cholecystectomy. 9. Appendectomy. 10. Tonsillectomy. 11. Chronic trache. 12. G-tube placement. ALLERGIES: 1. CELEXA. 2. ATIVAN. 3. ARICEPT. ANTIBIOTICS: 1. Vancomycin. 2. Ceftriaxone. SOCIAL HISTORY: The patient is cared for at home by caregivers. No tobacco, alcohol or illicit drugs. REVIEW OF SYSTEMS: Unable to obtain. OBJECTIVE: Vital Signs Date Time Temp Pulse Resp B/P Pulse Ox O2 Delivery O2 Flow Rate FiO2 09/25/16 12:00 98.6 107 18 156/99 95 09/25/16 10:22 99 T-piece 28 09/25/16 08:00 98.2 111 17 131/68 96 09/25/16 05:08 98 T-piece 5.00 28 09/25/16 04:00 99.3 106 24 128/76 100 09/25/16 00:00 98.8 100 24 142/67 100 09/24/16 20:11 99 T-piece 28 09/24/16 16:23 97.8 91 18 146/70 100 09/24/16 09/24/16 09/25/16 14:59 22:59 06:59 Intake Total 213 ml 2492 ml Output Total 2000 ml 300 ml 400 ml Balance -1787 ml 2192 ml -400 ml Intake IV Total 213 ml 1590 ml Tube Feeding 722 ml Other 180 ml Output Urine Total 2000 ml 300 ml 400 ml # Bowel Movements 2 3 1 Laboratory Tests Test 09/24/16 07:10 White Blood Count 7.4 TH/MM3 Red Blood Count 3.66 MIL/MM3 Hemoglobin 9.5 GM/DL Hematocrit 30.0 % Mean Corpuscular Volume 82.0 FL Mean Corpuscular Hemoglobin 25.9 PG Mean Corpuscular Hemoglobin 31.6 % Concent Red Cell Distribution Width 17.6 % Platelet Count 353 TH/MM3 Mean Platelet Volume 6.6 FL Neutrophils (%) (Auto) 69.4 % Lymphocytes (%) (Auto) 16.3 % Monocytes (%) (Auto) 6.5 % Eosinophils (%) (Auto) 7.1 % Basophils (%) (Auto) 0.7 % Neutrophils # (Auto) 5.1 TH/MM3 Lymphocytes # (Auto) 1.2 TH/MM3 Monocytes # (Auto) 0.5 TH/MM3 Eosinophils # (Auto) 0.5 TH/MM3 Basophils # (Auto) 0.1 TH/MM3 CBC Comment DIFF FINAL Differential Comment Laboratory Tests Test 09/24/16 09/25/16 07:10 07:59 Sodium Level 141 MEQ/L Potassium Level 3.9 MEQ/L Chloride Level 106 MEQ/L Carbon Dioxide Level 28.6 MEQ/L Anion Gap 6 MEQ/L Blood Urea Nitrogen 13 MG/DL Creatinine 0.60 MG/DL 0.65 MG/DL Estimat Glomerular Filtration 154 ML/MIN 140 ML/MIN Rate Random Glucose 112 MG/DL Calcium Level 8.1 MG/DL Microbiology Date/Time Procedure Status Source Growth 09/22/16 14:00 Aerobic Blood Culture - Final Complete Blood Peripheral S. Aureus Mrsa 09/22/16 14:00 Anaerobic Blood Culture - Final Complete Staph Sp Coagulase Negative 09/22/16 14:00 Urine Culture - Final Complete Urine Catheterized Urine Escherichia Coli 09/22/16 14:05 Aerobic Blood Culture - Preliminary Resulted Blood Peripheral S. Aureus Mrsa Staph Sp Coagulase Negative 09/22/16 14:05 Anaerobic Blood Culture - Preliminary Resulted S. Aureus Mrsa Staph Sp Coagulase Negative 09/25/16 07:59 Aerobic Blood Culture Received Blood Peripheral Pending 09/25/16 07:59 Anaerobic Blood Culture Received Blood Peripheral Pending 09/25/16 08:05 Aerobic Blood Culture Received Blood Peripheral Pending 09/25/16 08:05 Anaerobic Blood Culture Received Blood Peripheral Pending IMAGING: Tube Change 09/22/16 0000 Signed Impressions: Service Date/Time: Thursday, September 22, 2016 17:44 - CONCLUSION: Uncomplicated gastrojejunostomy tube exchange as above. Narayan Lake MD Chest X-Ray 09/22/16 0000 Signed Impressions: Service Date/Time: Thursday, September 22, 2016 14:17 - CONCLUSION: Underinflated examination with likely atelectasis at the lung bases. Technique results in less than optimal evaluation of the lung parenchyma but no acute finding is identified. Jay Choudhury MD Abdomen X-Ray 09/22/16 0000 Signed Impressions: Service Date/Time: Thursday, September 22, 2016 14:20 - CONCLUSION: Contrast within the stomach and proximal small intestinal loop. Mason Clayton MD PHYSICAL EXAMINATION: GENERAL: No acute distress. HEAD, EYES, EARS, NOSE, THROAT: The head is atraumatic. Extraocular movements grossly intact. No icterus. No conjunctival erythema. Oropharynx reveals moist mucosa. NECK: The neck is supple without adenopathy. LUNGS: Decreased breath sounds. HEART: Regular rate and rhythm. No audible murmurs or rubs or gallops. ABDOMEN: Bowel sounds present, soft, nontender. The PEG tube appears intact at the entry site. This is a replaced PEG-tube. There is no visible drainage. No erythema. EXTREMITIES: No clubbing or cyanosis or edema. The patient has contractures of the extremities and muscle wasting apparent. NEUROLOGIC: Unable to fully assess. SKIN: No diffuse rash. PSYCHIATRIC: Unable to fully assess. IMPRESSION: 1. Bacteremia due to MRSA. 2. Urinary tract infection due to E-coli. 3. PEG-tube malfunction. RECOMMENDATIONS: 1. Continue vancomycin. 2. Continue ceftriaxone for treatment of the urinary tract infection. 3. Send sputum culture. 4. Repeat urine culture in a day or two to check for effectiveness of the treatment. 5. Follow the blood cultures. Lc Odell MD Sep 25, 2016 13:42
[2016-09-25] MEDS: HYOSCYAMINE 0.125 MG TAB SL SCH ×3 (14:30→21:19)
[2016-09-25] MEDS ORDERED: MURO2SOL EACH EYE (16:22)
[2016-09-25] MEDS ORDERED: SINE25TA PO (16:22)
[2016-09-25] MEDS ORDERED: SYNT112T PO (16:22)
[2016-09-25] MEDS ORDERED: LATA.005%O EACH EYE (16:34)
[2016-09-25] MEDS ORDERED: MIRA0.25 PO (16:34)
[2016-09-25] MEDS ORDERED: BUDE0.5S NEB (16:34)
[2016-09-25] MEDS: SODIUM CHLORIDE 5% OPHT SOLN 15 ML BTL EACH EYE SCH (18:00)
[2016-09-25] MEDS: cefTRIAXone INJ 1,000 MG in SODIUM CHLORIDE 0.9% INJ 100 ML IV SCH (18:29)
[2016-09-25] MEDS: PRAMIPEXOLE DIHYDROCHLORIDE 0.25 MG TAB PO SCH (18:34)
[2016-09-25] MEDS: CARBIDOPA/LEVODOPA 25 MG/100 MG TAB PO SCH (18:34)
[2016-09-25] MEDS: RESP: BUDESONIDE 0.5 MG/2 ML NEB NEB SCH (20:00)
[2016-09-25] MEDS: LATANOPROST 0.005% OPHT SOLN 2.5 ML BTL EACH EYE SCH (21:20)
[2016-09-25] MEDS ORDERED: PHARMACY ORDERED LAB ONE (22:45)
[2016-09-26] VITALS (8 sets, daily range): BP systolic 96–133; BP diastolic 50–72; PULSE 83–104; RESP 18–29; TEMP 96.2–98.3; O2SAT 96–100
[2016-09-26] MEDS: VANCOMYCIN INJ 1,250 MG in SODIUM CHLOR 0.9% 250 ML INJ 250 ML IV SCH ×2 (00:45→17:04)
[2016-09-26] MEDS: PRAMIPEXOLE DIHYDROCHLORIDE 0.25 MG TAB PO SCH ×4 (00:51→17:00)
[2016-09-26] MEDS: HYOSCYAMINE 0.125 MG TAB SL SCH ×6 (00:52→22:13)
[2016-09-26] MEDS: CARBIDOPA/LEVODOPA 25 MG/100 MG TAB PO SCH ×4 (00:52→16:59)
[2016-09-26] MEDS: SODIUM CHLORIDE 5% OPHT SOLN 15 ML BTL EACH EYE SCH ×4 (00:52→19:08)
[2016-09-26] MEDS: RESP: ALBUTEROL 2.5 MG/IPRATROPIUM 0.5 MG NEB (SCH) INH ×4 (03:18→21:27)
[2016-09-26] MEDS: LEVOTHYROXINE SODIUM 112 MCG TAB PO SCH (07:11)
[2016-09-26] MEDS: DOCUSATE SODIUM 50 MG/SENNA 8.6 MG TAB G-TUBE SCH (09:00)
[2016-09-26] MEDS: SODIUM CHLORIDE 0.9% FLUSH 10 ML FLUSH IV FLUSH SCH ×2 (09:00→21:55)
[2016-09-26] MEDS: OXYBUTYNIN CHLORIDE 5 MG TAB PO SCH ×2 (09:06→22:13)
[2016-09-26] MEDS: FAMOTIDINE 20 MG TAB PO SCH ×2 (09:07→22:14)
[2016-09-26] MEDS: RESP: BUDESONIDE 0.5 MG/2 ML NEB NEB SCH ×2 (09:39→21:27)
--- NOTE | 2016-09-26 13:48 | HHI.PR ---
Subjective Remarks resting comfortablyneeds frequent suctoning tolerating tube feedings Objective Vitals Vital Signs Date Time Temp Pulse Resp B/P Pulse Ox O2 Delivery O2 Flow Rate FiO2 09/26/16 12:00 98.1 104 29 96/50 96 09/26/16 09:39 98 T-piece 28 09/26/16 08:00 97.7 93 29 113/72 99 09/26/16 04:00 96.2 97 18 117/61 97 09/26/16 00:00 98.2 83 18 131/67 97 09/25/16 20:06 98 T-piece 28 09/25/16 20:00 98.9 91 16 134/71 95 09/25/16 16:00 98.0 78 17 117/76 99 09/25/16 14:44 99 T-piece 28 I/O 09/25/16 09/25/16 09/25/16 09/26/16 09/26/16 09/26/16 07:00 15:00 23:00 07:00 15:00 23:00 Intake Total 1143 ml Output Total 400 ml 350 ml 1000 ml Balance 743 ml -350 ml -1000 ml Intake IV Total 455 ml Tube Feeding 488 ml Other 200 ml Output Urine Total 400 ml 350 ml 1000 ml # Bowel Movements 1 2 2 Result Diagram: 09/24/16 0710 09/25/16 0759 Imaging Last Impressions Tube Change 09/22/16 0000 Signed Impressions: Service Date/Time: Thursday, September 22, 2016 17:44 - CONCLUSION: Uncomplicated gastrojejunostomy tube exchange as above. Narayan Lake MD Chest X-Ray 09/22/16 0000 Signed Impressions: Service Date/Time: Thursday, September 22, 2016 14:17 - CONCLUSION: Underinflated examination with likely atelectasis at the lung bases. Technique results in less than optimal evaluation of the lung parenchyma but no acute finding is identified. Jay Choudhury MD Abdomen X-Ray 09/22/16 0000 Signed Impressions: Service Date/Time: Thursday, September 22, 2016 14:20 - CONCLUSION: Contrast within the stomach and proximal small intestinal loop. Mason Clayton MD Objective Remarks nonverbal anicteric tracheostomy tube in place- capped no rales, + rhonchi- clears up with suctioning regular rhythm PEG site- clean, kingsley in place sacral decubitus ulcer- edges clean, dry 09/25 exam extremities- atrophied, flexion contractures Procedures PEG replacement- 09/22 Urinary Catheter: Yes Kingsley insert reason: Prolonged Immobilization Date of Insertion: Sep 22, 2016 A/P Assessment and Plan 89 yers old male- advanced Parkinson's disease, S/P CVA baseline- is total care , not interactive- admitted for MRSA Sepsis- on Vancomycin PNA-as source suctioning with thick dirty whitish secretions Dr. Odell ff send sputum for gram stain- C and S- pending Increase Levsin suctioning q 4 schedule and q 2 prn E coli UTI- on chronic kingsley - changed 09/22 continue on Rocephin GT malfunction-PEG changed 09/22 -TF feedings restarted- tolerating tracheostomy in place- capped. duonebs q 4. suctioning prn Advanced Parkinson's - extremities- flexion contractures. restart meds/PEG- will try to get list stage 2 decubitus ulcer -wound care team ff History of hypothyroidism - continue on synthroid pericolace once daily [facility] Mr Olivia has a 24 hour home health caregiver Timothy Leonardo MD Sep 26, 2016 13:48
[2016-09-26] MEDS ORDERED: PHARMACY ORDERED LAB ONE (16:45)
[2016-09-26] MEDS: cefTRIAXone INJ 1,000 MG in SODIUM CHLORIDE 0.9% INJ 100 ML IV SCH (19:08)
[2016-09-26] MEDS: LATANOPROST 0.005% OPHT SOLN 2.5 ML BTL EACH EYE SCH (21:56)
[2016-09-27] VITALS (9 sets, daily range): BP systolic 119–141; BP diastolic 58–80; PULSE 91–103; RESP 18–26; TEMP 97.2–98.5; O2SAT 96–100
[2016-09-27] MEDS: SODIUM CHLORIDE 5% OPHT SOLN 15 ML BTL EACH EYE SCH ×4 (00:08→23:46)
[2016-09-27] MEDS: CARBIDOPA/LEVODOPA 25 MG/100 MG TAB PO SCH ×4 (00:08→17:18)
[2016-09-27] MEDS: PRAMIPEXOLE DIHYDROCHLORIDE 0.25 MG TAB PO SCH ×4 (00:08→17:18)
[2016-09-27] MEDS: HYOSCYAMINE 0.125 MG TAB SL SCH ×6 (00:14→23:45)
[2016-09-27] MEDS: RESP: ALBUTEROL 2.5 MG/IPRATROPIUM 0.5 MG NEB (SCH) INH ×4 (03:53→21:43)
[2016-09-27] MEDS: LEVOTHYROXINE SODIUM 112 MCG TAB PO SCH (05:59)
[2016-09-27] MEDS: OXYBUTYNIN CHLORIDE 5 MG TAB PO SCH ×2 (08:21→23:45)
[2016-09-27] MEDS: FAMOTIDINE 20 MG TAB PO SCH ×2 (08:21→23:45)
[2016-09-27] MEDS: DOCUSATE SODIUM 50 MG/SENNA 8.6 MG TAB G-TUBE SCH (08:21)
[2016-09-27] MEDS: SODIUM CHLORIDE 0.9% FLUSH 10 ML FLUSH IV FLUSH SCH ×2 (08:22→23:45)
[2016-09-27] MEDS: RESP: BUDESONIDE 0.5 MG/2 ML NEB NEB SCH (08:51)
--- NOTE | 2016-09-27 13:44 | HHI.IDPN ---
Note Infectious Disease Note Patient has eyes open. Copious frothy tube feed colored secretions coming from ETT. Afebrile. Not in distress. RN having difficulty suctioning via ETT. Repeat blood culture has no growth. Sputum culture pending. PAST MEDICAL HISTORY: 1. Advanced Parkinson's disease. 2. Alzheimer's disease. 3. Hypertension. 4. Orthostatic hypotension. 5. History of endocarditis. 6. Prostate cancer. 7. Prostatectomy. 8. Cholecystectomy. 9. Appendectomy. 10. Tonsillectomy. 11. Chronic trache. 12. G-tube placement. ALLERGIES: 1. CELEXA. 2. ATIVAN. 3. ARICEPT. ANTIBIOTICS: 1. Vancomycin. 2. Ceftriaxone. SOCIAL HISTORY: The patient is cared for at home by caregivers. No tobacco, alcohol or illicit drugs. REVIEW OF SYSTEMS: Unable to obtain. OBJECTIVE: Vital Signs Date Time Temp Pulse Resp B/P Pulse Ox O2 Delivery O2 Flow Rate FiO2 09/27/16 12:00 98.4 102 24 131/66 98 09/27/16 08:52 96 T-piece 6.00 28 09/27/16 08:00 98.5 94 21 129/76 100 09/27/16 04:00 97.2 91 22 137/66 98 09/27/16 03:56 98 T-piece 6.00 28 09/27/16 00:00 97.2 92 22 119/58 98 09/26/16 20:00 98.0 83 20 132/71 100 09/26/16 16:00 98.3 99 27 133/67 99 09/26/16 15:39 96 T-piece 6.00 28 09/26/16 09/26/16 09/27/16 15:00 23:00 07:00 Output Total 1300 ml 1100 ml Balance -1300 ml -1100 ml Output Urine Total 1300 ml 1100 ml # Bowel Movements 1 1 5 Laboratory Tests Test 09/27/16 07:33 Creatinine 0.54 MG/DL Estimat Glomerular Filtration 174 ML/MIN Rate Microbiology Date/Time Procedure Status Source Growth 09/25/16 07:59 Aerobic Blood Culture - Preliminary Resulted Blood Peripheral NO GROWTH IN 2 DAYS 09/25/16 07:59 Anaerobic Blood Culture - Preliminary Resulted Blood Peripheral NO GROWTH IN 2 DAYS 09/25/16 08:05 Aerobic Blood Culture - Preliminary Resulted Blood Peripheral NO GROWTH IN 2 DAYS 09/25/16 08:05 Anaerobic Blood Culture - Preliminary Resulted Blood Peripheral NO GROWTH IN 2 DAYS 09/25/16 22:45 Gram Stain - Final Resulted Sputum Endotracheal 09/25/16 22:45 Sputum Culture - Preliminary Resulted Sputum Endotracheal RESULTS PENDING Microbiology Date/Time Procedure Status Source Growth 09/22/16 14:00 Aerobic Blood Culture - Final Complete Blood Peripheral S. Aureus Mrsa 09/22/16 14:00 Anaerobic Blood Culture - Final Complete Staph Sp Coagulase Negative 09/22/16 14:00 Urine Culture - Final Complete Urine Catheterized Urine Escherichia Coli 09/22/16 14:05 Aerobic Blood Culture - Preliminary Resulted Blood Peripheral S. Aureus Mrsa Staph Sp Coagulase Negative 09/22/16 14:05 Anaerobic Blood Culture - Preliminary Resulted S. Aureus Mrsa Staph Sp Coagulase Negative 09/25/16 07:59 Aerobic Blood Culture Received Blood Peripheral Pending 09/25/16 07:59 Anaerobic Blood Culture Received Blood Peripheral Pending 09/25/16 08:05 Aerobic Blood Culture Received Blood Peripheral Pending 09/25/16 08:05 Anaerobic Blood Culture Received Blood Peripheral Pending IMAGING: Tube Change 09/22/16 0000 Signed Impressions: Service Date/Time: Thursday, September 22, 2016 17:44 - CONCLUSION: Uncomplicated gastrojejunostomy tube exchange as above. Narayan Lake MD Chest X-Ray 09/22/16 0000 Signed Impressions: Service Date/Time: Thursday, September 22, 2016 14:17 - CONCLUSION: Underinflated examination with likely atelectasis at the lung bases. Technique results in less than optimal evaluation of the lung parenchyma but no acute finding is identified. Jay Choudhury MD Abdomen X-Ray 09/22/16 0000 Signed Impressions: Service Date/Time: Thursday, September 22, 2016 14:20 - CONCLUSION: Contrast within the stomach and proximal small intestinal loop. Mason Clayton MD PHYSICAL EXAMINATION: GENERAL: No acute distress. HEENT: No icterus. No conjunctival erythema. Oropharynx: moist mucosa. NECK: The neck is supple without adenopathy. LUNGS: Coarse bilateral rhonchi. HEART: Regular rate and rhythm. No audible murmurs or rubs or gallops. ABDOMEN: Bowel sounds present, soft, nontender. The PEG tube appears intact at the entry site. EXTREMITIES: No clubbing or cyanosis or edema. The patient has contractures of the extremities and muscle wasting apparent. NEUROLOGIC: Unable to fully assess. SKIN: No diffuse rash. PSYCHIATRIC: Unable to fully assess. IMPRESSION: 1. Aspiration. 2. Bacteremia due to MRSA. 3. Urinary tract infection due to E-coli. 4. PEG-tube malfunction. PEG replaced. RECOMMENDATIONS: 1. Continue vancomycin. 2. Change Ceftriaxone to Cefepime to cover for pneumonia in addition to the urinary tract infection. 3. CXR. 4. Monitor sputum culture. Hold tube feeds. RN to notify DR. Leonardo about tube feeds. Lc Odell MD Sep 27, 2016 13:44
--- NOTE | 2016-09-27 14:08 | HHI.PR ---
Subjective Remarks tube feedings noted on ET tube afebrile Objective Vitals Vital Signs Date Time Temp Pulse Resp B/P Pulse Ox O2 Delivery O2 Flow Rate FiO2 09/27/16 12:00 98.4 102 24 131/66 98 09/27/16 08:52 96 T-piece 6.00 28 09/27/16 08:00 98.5 94 21 129/76 100 09/27/16 04:00 97.2 91 22 137/66 98 09/27/16 03:56 98 T-piece 6.00 28 09/27/16 00:00 97.2 92 22 119/58 98 09/26/16 20:00 98.0 83 20 132/71 100 09/26/16 16:00 98.3 99 27 133/67 99 09/26/16 15:39 96 T-piece 6.00 28 I/O 09/26/16 09/26/16 09/26/16 09/27/16 09/27/16 09/27/16 07:00 15:00 23:00 07:00 15:00 23:00 Output Total 1000 ml 1300 ml 1100 ml Balance -1000 ml -1300 ml -1100 ml Output Urine Total 1000 ml 1300 ml 1100 ml # Bowel Movements 2 1 1 5 Result Diagram: 09/24/16 0710 09/27/16 0733 Imaging Last Impressions Tube Change 09/22/16 0000 Signed Impressions: Service Date/Time: Thursday, September 22, 2016 17:44 - CONCLUSION: Uncomplicated gastrojejunostomy tube exchange as above. Narayan Lake MD Chest X-Ray 09/22/16 0000 Signed Impressions: Service Date/Time: Thursday, September 22, 2016 14:17 - CONCLUSION: Underinflated examination with likely atelectasis at the lung bases. Technique results in less than optimal evaluation of the lung parenchyma but no acute finding is identified. Jay Choudhury MD Abdomen X-Ray 09/22/16 0000 Signed Impressions: Service Date/Time: Thursday, September 22, 2016 14:20 - CONCLUSION: Contrast within the stomach and proximal small intestinal loop. Mason Clayton MD Objective Remarks nonverbal anicteric tracheostomy tube in place- capped no rales, + rhonchis regular rhythm PEG site- clean, kingsley in place sacral decubitus ulcer- edges clean, dry 09/25 exam extremities- atrophied, flexion contractures Procedures PEG replacement- 09/22 Urinary Catheter: Yes Date of Insertion: Sep 22, 2016 A/P Assessment and Plan 89 yers old male- advanced Parkinson's disease, S/P CVA baseline- is total care , not interactive- admitted for MRSA Sepsis- on Vancomycin PNA-- Aspiration- soutum- Pseudomonas E coli UTI- on chronic kingsley - changed 09/[address] Odell ff send sputum for gram stain- C and S- pending Increase Levsin suctioning q 4 schedule and q 2 prn HOld tube feedings 09/27 On Vancomycin. DC Ceftriaxone- Started on Cefepime 09/27 GT malfunction-PEG changed 09/22 -TF feedings restarted- tolerating- Hold tube feedings today 09/[address]- capped. duonebs q 4. suctioning prn Advanced Parkinson's - extremities- flexion contractures. restart meds/PEG- stage 2 decubitus ulcer -wound care team ff History of hypothyroidism - continue on synthroid pericolace once daily TEDS Mr Olivia has a 24 hour home health caregiver will consult speech therapy service to evaluate for aspiration- methylene blue dye test Timothy Leonardo MD Sep 27, 2016 14:08
--- NOTE | 2016-09-27 15:12 | RADRPT ---
EXAM DATE/TIME: 09/27/2016 13:55 [facility] COMPARISON: CHEST SINGLE AP, September 22, 2016, 14:17. INDICATIONS : Aspiration. MEDICAL HISTORY : None. SURGICAL HISTORY : None. ENCOUNTER: Initial ACUITY: 4 - 6 days PAIN SCORE: Non-responsive. LOCATION: chest FINDINGS: A single view of the chest demonstrates contraction of the left upper extremity which projects over a nd obscures the right lung base. Otherwise, lungs are clear with no acute infiltrate or effusion. Hea rt size is normal. Degenerative changes in both shoulders. CONCLUSION: No obvious infiltrate. The right base is partially obscured by the contracted left upper extremi ty. Chet De Leon MD on September 27, 2016 at 15:10 Board Certified Radiologist. This report was verified electronically.
[2016-09-27] MEDS: CEFEPIME INJ 2,000 MG in SODIUM CHLORIDE 0.9% INJ 100 ML IV SCH (15:40)
[2016-09-27] MEDS: VANCOMYCIN 1,000 MG/NS 250 ML IV SCH ×2 (17:20)
[2016-09-27] MEDS: LATANOPROST 0.005% OPHT SOLN 2.5 ML BTL EACH EYE SCH (23:46)
[2016-09-28] VITALS (7 sets, daily range): BP systolic 105–125; BP diastolic 55–92; PULSE 11–105; RESP 18–20; TEMP 95.3–99.3; O2SAT 97–100
[2016-09-28] MEDS: CEFEPIME INJ 2,000 MG in SODIUM CHLORIDE 0.9% INJ 100 ML IV SCH ×2 (00:29→08:25)
[2016-09-28] MEDS: CARBIDOPA/LEVODOPA 25 MG/100 MG TAB PO SCH ×4 (00:29→17:54)
[2016-09-28] MEDS: PRAMIPEXOLE DIHYDROCHLORIDE 0.25 MG TAB PO SCH ×4 (00:29→17:55)
[2016-09-28] MEDS: RESP: ALBUTEROL 2.5 MG/IPRATROPIUM 0.5 MG NEB (SCH) INH ×3 (04:39→15:38)
[2016-09-28] MEDS: HYOSCYAMINE 0.125 MG TAB SL SCH ×6 (05:37→20:53)
[2016-09-28] MEDS: LEVOTHYROXINE SODIUM 112 MCG TAB PO SCH (05:37)
[2016-09-28] MEDS: SODIUM CHLORIDE 5% OPHT SOLN 15 ML BTL EACH EYE SCH ×3 (05:37→17:55)
[2016-09-28] MEDS: DOCUSATE SODIUM 50 MG/SENNA 8.6 MG TAB G-TUBE SCH (08:25)
[2016-09-28] MEDS: OXYBUTYNIN CHLORIDE 5 MG TAB PO SCH ×2 (08:25→20:54)
[2016-09-28] MEDS: FAMOTIDINE 20 MG TAB PO SCH ×2 (08:25→20:54)
[2016-09-28] MEDS: SODIUM CHLORIDE 0.9% FLUSH 10 ML FLUSH IV FLUSH SCH ×2 (08:25→20:54)
[2016-09-28] MEDS: RESP: BUDESONIDE 0.5 MG/2 ML NEB NEB SCH ×2 (10:02→19:18)
[2016-09-28] MEDS: PIPERACIL-TAZO 4.5 GM PREMIX 100 ML IV SCH ×2 (11:07→17:55)
[2016-09-28] MEDS: VANCOMYCIN 1,000 MG/NS 250 ML IV SCH ×2 (11:08)
--- NOTE | 2016-09-28 13:45 | HHI.IDPN ---
Note Infectious Disease Note Patient has eyes closed. 01/27 - Copious frothy tube feed colored secretions coming from ETT. On trach collar. tube feeds on hold. Afebrile. HR currently 100. Not in distress. Repeat blood culture has no growth. Sputum culture has pseudomonas. PAST MEDICAL HISTORY: 1. Advanced Parkinson's disease. 2. Alzheimer's disease. 3. Hypertension. 4. Orthostatic hypotension. 5. History of endocarditis. 6. Prostate cancer. 7. Prostatectomy. 8. Cholecystectomy. 9. Appendectomy. 10. Tonsillectomy. 11. Chronic trache. 12. G-tube placement. ALLERGIES: 1. CELEXA. 2. ATIVAN. 3. ARICEPT. ANTIBIOTICS: 1. Vancomycin. 2. Ceftriaxone. SOCIAL HISTORY: The patient is cared for at home by caregivers. No tobacco, alcohol or illicit drugs. REVIEW OF SYSTEMS: Unable to obtain. OBJECTIVE: Vital Signs Date Time Temp Pulse Resp B/P Pulse Ox O2 Delivery O2 Flow Rate FiO2 09/28/16 10:08 99 T-piece 28 09/28/16 04:40 97 T-piece 6.00 28 09/28/16 04:00 97.8 11 18 125/61 98 09/28/16 00:00 99.3 93 18 123/58 100 09/27/16 20:00 97.6 94 18 141/80 100 09/27/16 16:20 98 T-piece 6.00 28 09/27/16 16:00 98.1 103 26 122/80 98 09/27/16 09/27/16 09/28/16 15:00 23:00 07:00 Intake Total 530 ml Output Total 675 ml 300 ml 500 ml Balance -675 ml -300 ml 30 ml Intake IV Total 530 ml Output Urine Total 675 ml 300 ml 500 ml # Bowel Movements 2 1 Laboratory Tests Test 09/27/16 07:33 Creatinine 0.54 MG/DL Estimat Glomerular Filtration 174 ML/MIN Rate Microbiology Date/Time Procedure Status Source Growth 09/25/16 22:45 Gram Stain - Final Complete Sputum Endotracheal 09/25/16 22:45 Sputum Culture - Final Complete Pseudomonas Aeruginosa Microbiology Date/Time Procedure Status Source Growth 09/22/16 14:00 Aerobic Blood Culture - Final Complete Blood Peripheral S. Aureus Mrsa 09/22/16 14:00 Anaerobic Blood Culture - Final Complete Staph Sp Coagulase Negative 09/22/16 14:00 Urine Culture - Final Complete Urine Catheterized Urine Escherichia Coli 09/22/16 14:05 Aerobic Blood Culture - Preliminary Resulted Blood Peripheral S. Aureus Mrsa Staph Sp Coagulase Negative 09/22/16 14:05 Anaerobic Blood Culture - Preliminary Resulted S. Aureus Mrsa Staph Sp Coagulase Negative 09/25/16 07:59 Aerobic Blood Culture Received Blood Peripheral Pending 09/25/16 07:59 Anaerobic Blood Culture Received Blood Peripheral Pending 09/25/16 08:05 Aerobic Blood Culture Received Blood Peripheral Pending 09/25/16 08:05 Anaerobic Blood Culture Received Blood Peripheral Pending IMAGING: Chest X-Ray 09/27/16 0000 Signed Impressions: Service Date/Time: Tuesday, September 27, 2016 13:55 - CONCLUSION: No obvious infiltrate. The right base is partially obscured by the contracted left upper extremity. Chet De Leon MD Tube Change 09/22/16 0000 Signed Impressions: Service Date/Time: Thursday, September 22, 2016 17:44 - CONCLUSION: Uncomplicated gastrojejunostomy tube exchange as above. Narayan Lake MD Chest X-Ray 09/22/16 0000 Signed Impressions: Service Date/Time: Thursday, September 22, 2016 14:17 - CONCLUSION: Underinflated examination with likely atelectasis at the lung bases. Technique results in less than optimal evaluation of the lung parenchyma but no acute finding is identified. Jay Choudhury MD Abdomen X-Ray 09/22/16 0000 Signed Impressions: Service Date/Time: Thursday, September 22, 2016 14:20 - CONCLUSION: Contrast within the stomach and proximal small intestinal loop. Mason Clayton MD PHYSICAL EXAMINATION: GENERAL: No acute distress. HEENT: No icterus. No conjunctival erythema. Oropharynx: moist mucosa. NECK: The neck is supple without adenopathy. LUNGS: Coarse bilateral rhonchi. HEART: Regular rate and rhythm. No audible murmurs or rubs or gallops. ABDOMEN: Bowel sounds present, soft, nontender. EXTREMITIES: No clubbing or cyanosis or edema. The patient has contractures of the extremities and muscle wasting apparent. NEUROLOGIC: Unable to fully assess. SKIN: No diffuse rash. PSYCHIATRIC: Unable to fully assess. IMPRESSION: 1. Aspiration. Pseudomonas pneumonia. Recent active aspiration fo tube feeds on 09/27. 2. Bacteremia due to MRSA. 3. Urinary tract infection due to E-coli. 4. PEG-tube malfunction. PEG replaced. RECOMMENDATIONS: 1. Continue vancomycin. 2. Change Cefepime PIP/tazo given MICs 3. Monitor temp and clinical status. Lc Odell MD Sep 28, 2016 13:45
--- NOTE | 2016-09-28 16:28 | HHI.PR ---
Subjective Remarks patient appears comfortable methylene blue positive for throat- likely aspirating from own secretions Objective Vitals Vital Signs Date Time Temp Pulse Resp B/P Pulse Ox O2 Delivery O2 Flow Rate FiO2 09/28/16 12:00 97.8 104 20 125/92 97 09/28/16 10:08 99 T-piece 28 09/28/16 04:40 97 T-piece 6.00 28 09/28/16 04:00 97.8 11 18 125/61 98 09/28/16 00:00 99.3 93 18 123/58 100 09/27/16 20:00 97.6 94 18 141/80 100 I/O 09/27/16 09/27/16 09/27/16 09/28/16 09/28/16 09/28/16 07:00 15:00 23:00 07:00 15:00 23:00 Intake Total 530 ml 0 ml Output Total 1100 ml 675 ml 300 ml 500 ml 300 ml Balance -1100 ml -675 ml -300 ml 30 ml -300 ml Intake Oral 0 ml IV Total 530 ml Output Urine Total 1100 ml 675 ml 300 ml 500 ml 300 ml # Bowel Movements 5 2 1 Result Diagram: 09/24/16 0710 09/27/16 0733 Imaging Last Impressions Chest X-Ray 09/27/16 0000 Signed Impressions: Service Date/Time: Tuesday, September 27, 2016 13:55 - CONCLUSION: No obvious infiltrate. The right base is partially obscured by the contracted left upper extremity. Chet De Leon MD Tube Change 09/22/16 0000 Signed Impressions: Service Date/Time: Thursday, September 22, 2016 17:44 - CONCLUSION: Uncomplicated gastrojejunostomy tube exchange as above. Narayan Lake MD Abdomen X-Ray 09/22/16 0000 Signed Impressions: Service Date/Time: Thursday, September 22, 2016 14:20 - CONCLUSION: Contrast within the stomach and proximal small intestinal loop. Mason Clayton MD Objective Remarks nonverbal anicteric tracheostomy tube in place- capped no rales, no rales, - clear regular rhythm GJ tube site - clean, kingsley in place sacral decubitus ulcer- edges clean, dry 09/25 exam extremities- atrophied, flexion contractures Procedures PEG replacement- 09/22 Date of Insertion: Sep 22, 2016 A/P Assessment and Plan 89 yers old male- advanced Parkinson's disease, S/P CVA baseline- is total care , not interactive- admitted for MRSA Sepsis- on Vancomycin PNA-- Aspiration- sputum- Pseudomonas E coli UTI- on chronic kingsley - changed 09/[address] Odell ff send sputum for gram stain- C and S- pending Increase Levsin suctioning q 4 schedule and q 2 prn HOld tube feedings 09/27 On Vancomycin. DC Ceftriaxone- Started on Cefepime 09/27 GT malfunction-PEG changed 09/22 -hold tube feedings will get GI evaluation for recommendations - regarding prevention or minimizing aspiration with will restart tube feedings at a slower rate 10 cc/hr tracheostomy in place- capped. duonebs q 4. suctioning prn Advanced Parkinson's - extremities- flexion contractures. restart meds/PEG- stage 2 decubitus ulcer -wound care team ff History of hypothyroidism - continue on synthroid pericolace once daily TEDS Mr Olivia has a 24 hour home health caregiver Timothy Leonardo MD Sep 28, 2016 16:28 Timothy Leonardo MD Sep 28, 2016 16:28 Timothy Leonardo MD Sep 28, 2016 16:28
[2016-09-28] MEDS: LATANOPROST 0.005% OPHT SOLN 2.5 ML BTL EACH EYE SCH (20:53)
[2016-09-29] VITALS (10 sets, daily range): BP systolic 71–128; BP diastolic 39–65; PULSE 87–95; RESP 18–24; TEMP 95.6–98.7; O2SAT 94–100
[2016-09-29] MEDS: HYOSCYAMINE 0.125 MG TAB SL SCH ×6 (00:18→22:15)
[2016-09-29] MEDS: CARBIDOPA/LEVODOPA 25 MG/100 MG TAB PO SCH ×4 (00:18→16:45)
[2016-09-29] MEDS: PIPERACIL-TAZO 4.5 GM PREMIX 100 ML IV SCH ×4 (00:18→16:45)
[2016-09-29] MEDS: PRAMIPEXOLE DIHYDROCHLORIDE 0.25 MG TAB PO SCH ×4 (00:18→16:44)
[2016-09-29] MEDS: SODIUM CHLORIDE 5% OPHT SOLN 15 ML BTL EACH EYE SCH ×4 (00:18→16:45)
[2016-09-29] MEDS ORDERED: PHARMACY ORDERED LAB ONE (04:45)
[2016-09-29] MEDS: LEVOTHYROXINE SODIUM 112 MCG TAB PO SCH (05:02)
[2016-09-29] MEDS: VANCOMYCIN 1,000 MG/NS 250 ML IV SCH ×2 (05:03)
[2016-09-29] MEDS: SODIUM CHLORIDE 0.9% FLUSH 10 ML FLUSH IV FLUSH SCH ×2 (09:00→21:00)
[2016-09-29] MEDS: FAMOTIDINE 20 MG TAB PO SCH ×2 (09:14→22:15)
[2016-09-29] MEDS: DOCUSATE SODIUM 50 MG/SENNA 8.6 MG TAB G-TUBE SCH (09:14)
[2016-09-29] MEDS: OXYBUTYNIN CHLORIDE 5 MG TAB PO SCH ×2 (09:14→22:15)
[2016-09-29] MEDS: RESP: BUDESONIDE 0.5 MG/2 ML NEB NEB SCH ×2 (09:28→20:03)
--- NOTE | 2016-09-29 11:51 | HHI.IDPN ---
Note Infectious Disease Note Patient has eyes open. Bedside caregiver notes that he looks his baseline. Does not respond. Reyes secretions. Trach collar. tube feeds resumed. Afebrile. 01/27 - Copious frothy tube feed colored secretions coming from ETT. Repeat blood culture has no growth. Sputum culture has pseudomonas. PAST MEDICAL HISTORY: 1. Advanced Parkinson's disease. 2. Alzheimer's disease. 3. Hypertension. 4. Orthostatic hypotension. 5. History of endocarditis. 6. Prostate cancer. 7. Prostatectomy. 8. Cholecystectomy. 9. Appendectomy. 10. Tonsillectomy. 11. Chronic trache. 12. G-tube placement. ALLERGIES: 1. CELEXA. 2. ATIVAN. 3. ARICEPT. ANTIBIOTICS: 1. Vancomycin. 2. Zosyn. SOCIAL HISTORY: The patient is cared for at home by caregivers. No tobacco, alcohol or illicit drugs. REVIEW OF SYSTEMS: Unable to obtain. OBJECTIVE: Vital Signs Date Time Temp Pulse Resp B/P Pulse Ox O2 Delivery O2 Flow Rate FiO2 09/29/16 09:28 94 T-piece 28 09/29/16 08:45 97.8 94 24 121/65 99 09/29/16 04:00 98.5 91 20 93/54 98 09/29/16 00:00 97.5 95 18 97/55 99 09/28/16 20:00 95.3 99 20 105/55 100 09/28/16 19:18 T-piece 28 09/28/16 16:00 97.7 105 20 122/70 99 09/28/16 12:00 97.8 104 20 125/92 97 09/28/16 09/28/16 09/29/16 15:00 23:00 07:00 Intake Total 0 ml 1093 ml Output Total 300 ml 400 ml 250 ml Balance -300 ml 693 ml -250 ml Intake Oral 0 ml IV Total 1093 ml Output Urine Total 300 ml 400 ml 250 ml Laboratory Tests Test 09/29/16 05:55 Creatinine 0.71 MG/DL Estimat Glomerular Filtration 127 ML/MIN Rate Microbiology Date/Time Procedure Status Source Growth 09/25/16 22:45 Gram Stain - Final Complete Sputum Endotracheal 09/25/16 22:45 Sputum Culture - Final Complete Pseudomonas Aeruginosa Microbiology Date/Time Procedure Status Source Growth 09/22/16 14:00 Aerobic Blood Culture - Final Complete Blood Peripheral S. Aureus Mrsa 09/22/16 14:00 Anaerobic Blood Culture - Final Complete Staph Sp Coagulase Negative 09/22/16 14:00 Urine Culture - Final Complete Urine Catheterized Urine Escherichia Coli 09/22/16 14:05 Aerobic Blood Culture - Preliminary Resulted Blood Peripheral S. Aureus Mrsa Staph Sp Coagulase Negative 09/22/16 14:05 Anaerobic Blood Culture - Preliminary Resulted S. Aureus Mrsa Staph Sp Coagulase Negative 09/25/16 07:59 Aerobic Blood Culture Received Blood Peripheral Pending 09/25/16 07:59 Anaerobic Blood Culture Received Blood Peripheral Pending 09/25/16 08:05 Aerobic Blood Culture Received Blood Peripheral Pending 09/25/16 08:05 Anaerobic Blood Culture Received Blood Peripheral Pending IMAGING: Chest X-Ray 09/27/16 0000 Signed Impressions: Service Date/Time: Tuesday, September 27, 2016 13:55 - CONCLUSION: No obvious infiltrate. The right base is partially obscured by the contracted left upper extremity. Chet De Leon MD Tube Change 09/22/16 0000 Signed Impressions: Service Date/Time: Thursday, September 22, 2016 17:44 - CONCLUSION: Uncomplicated gastrojejunostomy tube exchange as above. Narayan Lake MD Chest X-Ray 09/22/16 0000 Signed Impressions: Service Date/Time: Thursday, September 22, 2016 14:17 - CONCLUSION: Underinflated examination with likely atelectasis at the lung bases. Technique results in less than optimal evaluation of the lung parenchyma but no acute finding is identified. Jay Choudhury MD Abdomen X-Ray 09/22/16 0000 Signed Impressions: Service Date/Time: Thursday, September 22, 2016 14:20 - CONCLUSION: Contrast within the stomach and proximal small intestinal loop. Mason Clayton MD PHYSICAL EXAMINATION: GENERAL: No acute distress. HEENT: No icterus. No conjunctival erythema. Oropharynx: moist mucosa. NECK: The neck is supple without adenopathy. LUNGS: Rhonchi at left base. decreased BS at right. HEART: Regular rate and rhythm. No audible murmurs or rubs or gallops. ABDOMEN: Bowel sounds present, soft, nontender. EXTREMITIES: No clubbing or cyanosis or edema. The patient has contractures of the extremities and muscle wasting apparent. NEUROLOGIC: Unable to fully assess. SKIN: No diffuse rash. PSYCHIATRIC: Unable to fully assess. IMPRESSION: 1. Aspiration. Pseudomonas pneumonia. Recent active aspiration fo tube feeds on 09/27. 2. Bacteremia due to MRSA. 3. Urinary tract infection due to E-coli. 4. PEG-tube malfunction. PEG replaced. Appears stable. RECOMMENDATIONS: 1. Continue vancomycin. (aim for trough 15 - 20). Pharmacy dosing. 2. Continue PIP/tazobactam. 3. Monitor temp and clinical status. Please call ID if condition changes on the weekend. Lc Odell MD Sep 29, 2016 11:51
--- NOTE | 2016-09-29 12:26 | HHI.PR ---
Subjective Remarks no tube feedings suctioned or coming out of tracheostomy vital stables Objective Vitals Vital Signs Date Time Temp Pulse Resp B/P Pulse Ox O2 Delivery O2 Flow Rate FiO2 09/29/16 09:28 94 T-piece 28 09/29/16 08:45 97.8 94 24 121/65 99 09/29/16 04:00 98.5 91 20 93/54 98 09/29/16 00:00 97.5 95 18 97/55 99 09/28/16 20:00 95.3 99 20 105/55 100 09/28/16 19:18 T-piece 28 09/28/16 16:00 97.7 105 20 122/70 99 I/O 09/28/16 09/28/16 09/28/16 09/29/16 09/29/16 09/29/16 07:00 15:00 23:00 07:00 15:00 23:00 Intake Total 530 ml 0 ml 1093 ml Output Total 500 ml 300 ml 400 ml 250 ml Balance 30 ml -300 ml 693 ml -250 ml Intake Oral 0 ml IV Total 530 ml 1093 ml Output Urine Total 500 ml 300 ml 400 ml 250 ml # Bowel Movements 1 Result Diagram: 09/29/16 0555 Imaging Last Impressions Chest X-Ray 09/27/16 0000 Signed Impressions: Service Date/Time: Tuesday, September 27, 2016 13:55 - CONCLUSION: No obvious infiltrate. The right base is partially obscured by the contracted left upper extremity. Chet De Leon MD Tube Change 09/22/16 0000 Signed Impressions: Service Date/Time: Thursday, September 22, 2016 17:44 - CONCLUSION: Uncomplicated gastrojejunostomy tube exchange as above. Narayan Lake MD Abdomen X-Ray 09/22/16 0000 Signed Impressions: Service Date/Time: Thursday, September 22, 2016 14:20 - CONCLUSION: Contrast within the stomach and proximal small intestinal loop. Mason Clayton MD Objective Remarks nonverbal anicteric tracheostomy tube in place- capped no rales, no rales, no rhonchis regular rhythm GJ tube site - clean, kingsley in place sacral decubitus ulcer- edges clean, dry 09/29 exam extremities- atrophied, flexion contractures Procedures PEG replacement- 09/22 Urinary Catheter: Yes Kingsley insert reason: Prolonged Immobilization Date of Insertion: Sep 22, 2016 A/P Assessment and Plan 89 yers old male- advanced Parkinson's disease, S/P CVA baseline- is total care , not interactive- admitted for MRSA Sepsis- on Vancomycin PNA-- Aspiration- sputum- Pseudomonas E coli UTI- on chronic kingsley - changed 09/22 Increase Levsin suctioning q 4 schedule and q 2 prn. Levsin SL On Vancomycin. and Kayla Odell ff d/w daughter that - patient can also aspirate from his own secretions GT malfunction-PEG changed 09/22 - will get GI evaluation for recommendations - regarding prevention or minimizing aspiration- d/w and requested by daughter ? will; converting to bolus TF decrease risk of aspiration tube feedings restarted 09/28- at 10 cc/hr- no signs of TF in trach- increase to 25 cc/hr today ( at home goal rate was 55 cc/hr) Increase gradually on a daily cautiously basis till goal rate as tolerated and monitor closely tracheostomy in place- capped. duonebs q 4. suctioning prn Advanced Parkinson's - extremities- flexion contractures. continue meds stage 2 decubitus ulcer -wound care team ff History of hypothyroidism - continue on synthroid pericolace once daily TEDS Mr Olivia has a 24 hour home health caregiver updated daughter- on phone Timothy Leonardo MD Sep 29, 2016 12:26
[2016-09-29] MEDS: LATANOPROST 0.005% OPHT SOLN 2.5 ML BTL EACH EYE SCH (21:00)
[2016-09-29] MEDS: VANCOMYCIN INJ 750 MG in SODIUM CHLOR 0.9% 250 ML INJ 250 ML IV SCH (22:14)
[2016-09-30] VITALS (9 sets, daily range): BP systolic 103–136; BP diastolic 51–63; PULSE 82–89; RESP 18–21; TEMP 97.2–98.8; O2SAT 96–100
[2016-09-30] MEDS: CARBIDOPA/LEVODOPA 25 MG/100 MG TAB PO SCH ×5 (00:15→23:14)
[2016-09-30] MEDS: PIPERACIL-TAZO 4.5 GM PREMIX 100 ML IV SCH ×5 (00:15→23:14)
[2016-09-30] MEDS: PRAMIPEXOLE DIHYDROCHLORIDE 0.25 MG TAB PO SCH ×5 (00:16→23:14)
[2016-09-30] MEDS: HYOSCYAMINE 0.125 MG TAB SL SCH ×7 (00:16→23:14)
[2016-09-30] MEDS: SODIUM CHLORIDE 5% OPHT SOLN 15 ML BTL EACH EYE SCH ×5 (00:16→23:14)
[2016-09-30] MEDS: LEVOTHYROXINE SODIUM 112 MCG TAB PO SCH (05:59)
[2016-09-30] MEDS: RESP: BUDESONIDE 0.5 MG/2 ML NEB NEB SCH ×2 (08:00→20:18)
[2016-09-30] MEDS: OXYBUTYNIN CHLORIDE 5 MG TAB PO SCH ×2 (09:26→21:24)
[2016-09-30] MEDS: FAMOTIDINE 20 MG TAB PO SCH ×2 (09:26→21:24)
[2016-09-30] MEDS: SODIUM CHLORIDE 0.9% FLUSH 10 ML FLUSH IV FLUSH SCH ×2 (09:26→21:00)
[2016-09-30] MEDS: DOCUSATE SODIUM 50 MG/SENNA 8.6 MG TAB G-TUBE SCH (09:26)
--- NOTE | 2016-09-30 13:33 | PD.CONS ---
HPI History of Present Illness This is a 89 year old male with advanced parkinson's, alzheimer's dementia, multiple contractures, dysphagia, who was originally sent to the ER for a malfunctioning G/J tube and this was replaced by invasive radiology on (09/22/16) . However, since this has been replaced and he has been having issues with aspiration. Speech therapy is following amd he was evaluated with modified catalan blue dye test- at which time patient had return of blue dye via trach suctioned and abnormal bolus holding requiring mouth to be suctioned as well. The family was wondering if bolus feedings may reduce his aspiration risk and GI has been consulted for further evaluations. The patient is nonverbal and unable to provide any history. He currently has TF going via J tube. He does have some reyes secretions via tracheostomy, does not seem to be bringing up tube feeding at this time. He does not appear to have any abdominal pain. Of note, he does seem to have a large amount of clear oral secretions. (Lili Apodaca) PFSH Past Medical History History Endocarditis Parkinson's disease Alzheimer's disease Hypertension Orthostatic hypotension Prostate cancer, status post resection Thyroid disease Hx TF Hx hospitalizations within the past year, acute respiratory failure, prolonged hospitalization and ICU, permanent tracheostomy placement. Past Surgical History Appendectomy Cholecystectomy Prostatectomy Tonsillectomy G tube placement Tracheostomy (Lili Apodaca) Coded Allergies: Aricept (Verified Allergy, Severe, 12/22/15) FAMILY CANNOT DESCRIBE REACTION Ativan (Verified Allergy, Unknown, 12/22/15) DOCTORS TOLD FAMILY HE SHOULD NOT BE GIVEN THIS MED Celexa (Verified Allergy, Unknown, 12/22/15) *MDRO Multi-Drug Resistant Organism (Verified Adverse Reaction, Unknown, ) MRSA (blood)-09/22/16, 07/2015; (urine) - 06/14/2015; (buttock) - 12/2015 MRSA PCR Screen POSITIVE - 06/14/2015 Medications Allergies Coded Allergies Type Severity Reaction Last Updated Verified Aricept Allergy Severe 12/22/15 Yes Ativan Allergy Unknown 12/22/15 Yes Celexa Allergy Unknown 12/22/15 Yes *MDRO Multi-Drug Resistant Organism Adverse Reaction Unknown 09/25/16 Yes Active Scripts Medications Dose Route/Sig Days Date Category Xalatan Opth Drops (Latanoprost) 0.005% Drops 1 Drop EACH EYE HS 09/25/16 Reported Budesonide Neb 0.5 Mg/2 Ml Neb 0.5 Mg NEB Q12HR 09/25/16 Reported Mirapex (Pramipexole Dihydrochloride) 0.25 Mg Tab 0.25 Mg PO Q6HR 09/25/16 Reported Eben 128 Opth Drops (Sodium Chloride Opth Drops) 2% Soln 1 Drop EACH EYE Q6HR 09/25/16 Reported Sinemet (Carbidopa-Levodopa) 25-100 Mg Tab 2 Tab PO Q6HR 09/25/16 Reported Synthroid (Levothyroxine Sodium) 112 Mcg Tab 112 Mcg PO DAILY@0600 09/25/16 Reported Duoneb (Ipratropium-Albuterol Neb) 0.5-2.5 Mg/3 Ml Neb 1 Nebule INH Q6HR NEB 09/22/16 Reported Ditropan (Oxybutynin Chloride) 5 Mg Tab 5 Mg PO Q12HR 09/22/16 Reported Famotidine 20 Mg Tab 20 Mg PO BID 09/22/16 Reported Hyoscyamine (Hyoscyamine Sulfate) 0.125 Mg Tab 0.125 Mg PO Q6HR 09/22/16 Reported Family History Family history significant for CAD. Social History Patient lives at home with family and 24-hour caregiver. No tobacco, etoh or illicit drug use. (Lili Apodaca) Review of Systems ROS Unable to obtain (Lili Apodaca) GI Exam Vitals I&O Vital Signs Date Time Temp Pulse Resp B/P Pulse Ox O2 Delivery O2 Flow Rate FiO2 09/30/16 12:12 97.9 86 18 131/62 96 09/30/16 07:58 97.8 82 18 113/55 97 09/30/16 06:56 85 120/56 09/29/16 20:03 100 T-piece 6.00 28 09/29/16 16:30 95.6 94 24 103/55 94 I/O 09/29/16 09/29/16 09/29/16 09/30/16 09/30/16 09/30/16 07:00 15:00 23:00 07:00 15:00 23:00 Output Total 250 ml Balance -250 ml Output Urine Total 250 ml # Bowel Movements 1 Imaging Last Impressions Chest X-Ray 09/27/16 0000 Signed Impressions: Service Date/Time: Tuesday, September 27, 2016 13:55 - CONCLUSION: No obvious infiltrate. The right base is partially obscured by the contracted left upper extremity. Chet De Leon MD Tube Change 09/22/16 0000 Signed Impressions: Service Date/Time: Thursday, September 22, 2016 17:44 - CONCLUSION: Uncomplicated gastrojejunostomy tube exchange as above. Narayan Lake MD Abdomen X-Ray 09/22/16 0000 Signed Impressions: Service Date/Time: Thursday, September 22, 2016 14:20 - CONCLUSION: Contrast within the stomach and proximal small intestinal loop. Mason Clayton MD Laboratory Date/Time Procedure Status Source Growth 09/25/16 22:45 Gram Stain - Final Complete Sputum Endotracheal 09/25/16 22:45 Sputum Culture - Final Complete Pseudomonas Aeruginosa Physical Examination HEENT: Normocephalic; atraumatic; large amount of oral secretions CHEST: Course breath sounds, tracheostomy. Reyes secretions. CARDIAC: RRR ABDOMEN: Soft, nondistended, nontender; no hepatosplenomegaly; bowel sounds are present in all four quadrants. G/J tube EXTREMITIES: Multiple contractures. DIRECTOR OF FOOD AND BEVERAGE SERVICES: Nonverbal (Lili Apodaca) Assessment and Plan Plan ASSESSMENT: - Dysphagia with recurrent aspiration. Pt with Advanced Parkinson's and Dementia, with dysphagia. He has G/J tube and was originally brought to ER for malfunctioning tube. S/P G/J tube replacement (09/22/16). However, since this has been replaced and he has been having issues with aspiration. ST is following, S/P modified catalan blue dye test- at which time patient had return of blue dye via trach suctioned and abnormal bolus holding requiring mouth to be suctioned as well. GI was consulted for ? transition to bolus feedings to minimize risk of aspiration and other recommendations. Bolus feedings are not recommended via J tube. At this point, we will get KUB with gastrografin via J tube to confirm placement, recommend suctioning oral secretions q2h, continuing levsin, and recommend placement of G tube to gravity to help decompress stomach to reduce the risk of aspiration. PLAN: - NPO - KUB with gastrografin via J tube to confirm placement - TF- GR as tolerated via J tube - G tube to gravity - Suction oral secretions q2h - Cont. Levsin - Change pepcid to protonix 40mg IV BID - Supportive care - Pt seen and examined by Dr. Pang and myself and this note is written on her behalf (Lili Apodaca) Physician Comments seen, examined agree with above (Dorothy Pang MD) Lili Apodaca Sep 30, 2016 13:33 Dorothy Pang MD Sep 30, 2016 18:43
--- NOTE | 2016-09-30 14:41 | HHI.PR ---
Subjective Remarks Patient in bed nonverbal closed eyes, severe upper or lower extremity contractions, I discussed with caregiver Objective Vitals Vital Signs Date Time Temp Pulse Resp B/P Pulse Ox O2 Delivery O2 Flow Rate FiO2 09/30/16 14:19 97 T-piece 6.00 28 09/30/16 12:12 97.9 86 18 131/62 96 09/30/16 07:58 97.8 82 18 113/55 97 09/30/16 06:56 85 120/56 09/29/16 20:03 100 T-piece 6.00 28 09/29/16 16:30 95.6 94 24 103/55 94 I/O 09/29/16 09/29/16 09/29/16 09/30/16 09/30/16 09/30/16 07:00 15:00 23:00 07:00 15:00 23:00 Output Total 250 ml 150 ml Balance -250 ml -150 ml Output Urine Total 250 ml 150 ml # Bowel Movements 1 Result Diagram: 09/29/16 0555 Objective Remarks - GENERAL: This is a frail,chronically ill 89 years old on T piece CARDIOVASCULAR: Regular rate and rhythm without murmurs, gallops, or rubs. RESPIRATORY: Decreased breath sounds. GASTROINTESTINAL: Abdomen soft, non-tender, nondistended. Normal active bowel sounds MUSCULOSKELETAL: Severe upper lower Extremities contractions without edema. NEURO: Nonverbal, closed eyes Procedures PEG replacement- 09/22 Date of Insertion: Sep 22, 2016 A/P Assessment and Plan 09/30:D/W GI SPECIAL SYSTEMS TECHNICIAN recommended avoiding boluses in the J-tube, discussed with nurse, Kingsley catheter leaking recommended changing if needed A/P: 89 yers old male- advanced Parkinson's disease, S/P CVA baseline- is total care , not interactive- admitted for MRSA Sepsis- on Vancomycin PNA-- Aspiration- sputum- Pseudomonas E coli UTI- on chronic kingsley - changed 09/22 Increase Levsin suctioning q 4 schedule and q 2 prn. Levsin SL On Vancomycin. and Kayla Odell ff d/w daughter that - patient can also aspirate from his own secretions GT malfunction-PEG changed 09/22 - will get GI evaluation for recommendations - regarding prevention or minimizing aspiration- d/w and requested by daughter ? will; converting to bolus TF decrease risk of aspiration tube feedings restarted 09/28- at 10 cc/hr- no signs of TF in trach- increase to 25 cc/hr today ( at home goal rate was 55 cc/hr) Increase gradually on a daily cautiously basis till goal rate as tolerated and monitor closely tracheostomy in place- capped. duonebs q 4. suctioning prn Advanced Parkinson's - extremities- flexion contractures. continue meds stage 2 decubitus ulcer -wound care team ff History of hypothyroidism - continue on synthroid pericolace once daily Laura Brumfield MD Sep 30, 2016 14:41
--- NOTE | 2016-09-30 16:19 | RADRPT ---
EXAM DATE/TIME: 09/30/2016 15:12 [facility] COMPARISON: No previous studies available for comparison. INDICATIONS : Evaluate J tube placement. MEDICAL HISTORY : None. SURGICAL HISTORY : Appendectomy. Cholecystectomy. Prostatectomy. G-J tube. Hiatal hernia. ENCOUNTER: Initial ACUITY: 1 day PAIN SCORE: Non-responsive. LOCATION: Bilateral abdomen. FINDINGS: 2 frontal views of the abdomen were performed after an ejection of contrast into the jejunostomy tube . Contrast is seen in loops of small bowel, confirming jejunal location to the tip of the tube. No evidence of leak. The visualized lower lungs are clear. CONCLUSION: Satisfactory location to the jejunostomy tube. Ronen Broussard MD on September 30, 2016 at 16:16 Board Certified Radiologist. This report was verified electronically.
[2016-09-30] MEDS: VANCOMYCIN INJ 750 MG in SODIUM CHLOR 0.9% 250 ML INJ 250 ML IV SCH (16:29)
[2016-09-30] MEDS: LATANOPROST 0.005% OPHT SOLN 2.5 ML BTL EACH EYE SCH (21:23)
[2016-10-01 00:50] VITALS: BP 158/72; PULSE 86; RESP 22; TEMP 98.1; O2SAT 100
[2016-10-01] MEDS: PIPERACIL-TAZO 4.5 GM PREMIX 100 ML IV SCH ×3 (05:28→18:26)
[2016-10-01] MEDS: PRAMIPEXOLE DIHYDROCHLORIDE 0.25 MG TAB PO SCH ×3 (05:28→17:57)
[2016-10-01] MEDS: SODIUM CHLORIDE 5% OPHT SOLN 15 ML BTL EACH EYE SCH ×3 (05:28→17:56)
[2016-10-01] MEDS: HYOSCYAMINE 0.125 MG TAB SL SCH ×5 (05:28→21:39)
[2016-10-01] MEDS: LEVOTHYROXINE SODIUM 112 MCG TAB PO SCH (05:28)
[2016-10-01] MEDS: CARBIDOPA/LEVODOPA 25 MG/100 MG TAB PO SCH ×3 (05:28→17:57)
[2016-10-01 07:00] VITALS: BP 144/67; PULSE 90; RESP 23; TEMP 97.3; O2SAT 97
[2016-10-01 08:23] LABS: POTASSIUM 3.1 MEQ/L (3.5-5.1)
[2016-10-01 08:36] VITALS: BP 177/84; PULSE 94; RESP 18; TEMP 97.7; O2SAT 100
[2016-10-01] MEDS: SODIUM CHLORIDE 0.9% FLUSH 10 ML FLUSH IV FLUSH SCH ×2 (09:00→21:00)
[2016-10-01 09:04] VITALS: O2SAT 99
[2016-10-01] MEDS: RESP: BUDESONIDE 0.5 MG/2 ML NEB NEB SCH ×2 (09:04→20:06)
[2016-10-01] MEDS: OXYBUTYNIN CHLORIDE 5 MG TAB PO SCH ×2 (09:11→21:40)
[2016-10-01] MEDS: DOCUSATE SODIUM 50 MG/SENNA 8.6 MG TAB G-TUBE SCH (09:12)
[2016-10-01] MEDS: FAMOTIDINE 20 MG TAB PO SCH ×2 (09:12→21:40)
[2016-10-01] MEDS: VANCOMYCIN INJ 750 MG in SODIUM CHLOR 0.9% 250 ML INJ 250 ML IV SCH (11:04)
--- NOTE | 2016-10-01 12:52 | HHI.PR ---
Subjective Remarks Patient laying in bed generally poor historian Per the nurse medication in administered by G-tube going to his ET tube Objective Vitals Vital Signs Date Time Temp Pulse Resp B/P Pulse Ox O2 Delivery O2 Flow Rate FiO2 10/01/16 09:04 99 T-piece 28 10/01/16 08:36 97.7 94 18 177/84 100 10/01/16 07:00 97.3 90 23 144/67 97 10/01/16 00:50 98.1 86 22 158/72 100 09/30/16 21:55 98.8 82 21 114/56 97 09/30/16 20:22 96 T-piece 5.00 28 09/30/16 16:17 97.7 88 18 136/63 100 09/30/16 14:19 97 T-piece 6.00 28 I/O 09/30/16 09/30/16 09/30/16 10/01/16 10/01/16 10/01/16 07:00 15:00 23:00 07:00 15:00 23:00 Intake Total 1280 ml Output Total 150 ml 850 ml Balance -150 ml 430 ml Intake Oral 0 ml IV Total 380 ml Tube Feeding 300 ml Other 600 ml Output Urine Total 150 ml 700 ml Drainage Total 150 ml # Bowel Movements 2 Result Diagram: 10/01/16 0626 Objective Remarks - GENERAL: This is a frail,chronically ill 89 years old on T piece CARDIOVASCULAR: Regular rate and rhythm without murmurs, gallops, or rubs. RESPIRATORY: Decreased breath sounds. GASTROINTESTINAL: Abdomen soft, non-tender, nondistended. Normal active bowel sounds MUSCULOSKELETAL: Severe upper lower Extremities contractions without edema. NEURO: Nonverbal, closed eyes Procedures PEG replacement- 09/22 Date of Insertion: Sep 22, 2016 A/P Assessment and Plan 09/30:D/W GI ENVIRONMENTAL SAMPLER recommended avoiding boluses in the J-tube, discussed with nurse, Kingsley catheter leaking recommended changing if needed 10/01: Continue current care with antibiotic or ID, monitor for any fever, monitor CBC, KCl by mouth to place low potassium, Vasotec as needed to cover for elevated pressure, monitor blood pressure Medications administered NG tube comes out of the ET tube per the nurse will discuss with GI A/P: 89 yers old male- advanced Parkinson's disease, S/P CVA baseline- is total care , not interactive- admitted for MRSA Sepsis- on Vancomycin PNA-- Aspiration- sputum- Pseudomonas E coli UTI- on chronic kingsley - changed 09/22 Increase Levsin suctioning q 4 schedule and q 2 prn. Levsin SL On Vancomycin. and Kayla Odell ff d/w daughter that - patient can also aspirate from his own secretions GT malfunction-PEG changed 09/22 - will get GI evaluation for recommendations - regarding prevention or minimizing aspiration- d/w and requested by daughter ? will; converting to bolus TF decrease risk of aspiration tube feedings restarted 09/28- at 10 cc/hr- no signs of TF in trach- increase to 25 cc/hr today ( at home goal rate was 55 cc/hr) Increase gradually on a daily cautiously basis till goal rate as tolerated and monitor closely tracheostomy in place- capped. duonebs q 4. suctioning prn Advanced Parkinson's - extremities- flexion contractures. continue meds stage 2 decubitus ulcer -wound care team ff History of hypothyroidism - continue on synthroid pericolace once daily Laura Brumfield MD Oct 01, 2016 12:52
[2016-10-01] MEDS ORDERED: POTASSIUM BICARBONATE 25 MEQ EFFERVESCENT TAB PO ONE (14:00)
[2016-10-01] MEDS ORDERED: POTASSIUM CHLORIDE 25 MEQ EFFERVESCENT TAB PO ONE (14:00)
[2016-10-01 16:23] VITALS: BP 149/70; PULSE 86; RESP 18; TEMP 98.5; O2SAT 100
--- NOTE | 2016-10-01 18:11 | HHI.GIFU ---
GI Follow-up Note Consult Follow-up Subjective: Patient laying in bed , contractures, liquid potassium seen in et tube.J tube in position Objective: PHYSICAL EXAMINATION: Vitals signs stable No fever Vital Signs Date Time Temp Pulse Resp B/P Pulse Ox O2 Delivery O2 Flow Rate FiO2 10/01/16 16:23 98.5 86 18 149/70 100 HEENT: dry mucosa NECK: tracheostomy CHEST: bilateral rhonchi CARDIAC: Regular rate and rhythm with no murmur gallop or rubs. ABDOMEN: Soft, nondistended, nontender; no hepatosplenomegaly; bowel sounds are present in all four quadrants, g/j tube in place EXTREMITIES: No clubbing, cyanosis, or edema., contractures SKIN: Normal; no rash; no jaundice. TRAINING AND DEVELOPMENT MANAGER: noncommunicating Available Data (labs, X- Rays, Procedues) : Laboratory Tests Test 10/01/16 06:26 Sodium Level 143 MEQ/L Potassium Level 3.1 MEQ/L Chloride Level 108 MEQ/L Carbon Dioxide Level 26.0 MEQ/L Anion Gap 9 MEQ/L Blood Urea Nitrogen 7 MG/DL Creatinine 0.64 MG/DL Estimat Glomerular Filtration 143 ML/MIN Rate Random Glucose 91 MG/DL Calcium Level 8.1 MG/DL ASSESSMENT/PLAN: reflux of medications placed in gtube in et tube aspiration of his own secretions Recommendations ct abdomen/pelvis-contrast to be placed via peg tube at the time of test ct chest gastrostomy tube to suction if still concern for aspiration-may need to consult surgery for j tube for feeding and medications and use g tube for venting only tf at 10 cc/hrs It was a pleasure seeing Blair Olivia Sr. Thank you for this consult. Entered by: Dorothy Grant MD Oct 01, 2016 18:11
[2016-10-01] MEDS ORDERED: DIATRIZOATE MEGLUM/DIATRIZOATE SOD 9 ML CUP PO ONE (19:45)
[2016-10-01 20:00] VITALS: BP 118/60; PULSE 85; RESP 19; TEMP 97.1; O2SAT 99
[2016-10-01] MEDS: LATANOPROST 0.005% OPHT SOLN 2.5 ML BTL EACH EYE SCH (21:00)
[2016-10-01] MEDS ORDERED: IOHEXOL 350 MG/ML 10 ML VIAL (for RAD DIAG) IV ONE (23:42)
[2016-10-02] VITALS (8 sets, daily range): BP systolic 106–191; BP diastolic 62–87; PULSE 79–122; RESP 20–21; TEMP 97.3–98.6; O2SAT 95–100
[2016-10-02] MEDS: PRAMIPEXOLE DIHYDROCHLORIDE 0.25 MG TAB PO SCH ×4 (00:01→18:17)
[2016-10-02] MEDS: SODIUM CHLORIDE 5% OPHT SOLN 15 ML BTL EACH EYE SCH ×4 (00:01→18:21)
--- NOTE | 2016-10-02 00:02 | RADRPT ---
EXAM DATE/TIME: 10/01/2016 23:41 [facility] COMPARISON: CHEST SINGLE AP, September 27, 2016, 13:55. 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 IV CONTRAST: 90 cc Omnipaque 350 (iohexol) IV ; Cumulative dose for multiple exams. RADIATION DOSE: 15.72 CTDIvol (mGy) ; Combined studies - Thorax/Abdomen/Pelvis MEDICAL HISTORY : Cardiovascular disease. Parkinsons. Hypertension.Prostate cancer SURGICAL HISTORY : Appendectomy. Cholecystectomy.Prostatectomy. ENCOUNTER: Subsequent ACUITY: 1 week PAIN SCALE: Non-responsive LOCATION: chest TECHNIQUE: Volumetric scanning of the chest was performed. Using automated exposure control and adjustment of t he mA and/or kV according to patient size, radiation dose was kept as low as reasonably achievable to obtain optimal diagnostic quality images. FINDINGS: LUNGS: There is a patchy probable infiltrate in the posterior right lower lung. There some mild atelectasis in the left lung base. Otherwise, the lungs are grossly clear. There is no evidence of pneumothorax. PLEURA: There is no pleural thickening or pleural effusion. MEDIASTINUM: The heart and great vessels demonstrate no acute abnormality. There is no mediastinal or hilar lymph adenopathy. There is a tracheostomy tube in place. AXILLAE: Within normal limits. No lymphadenopathy. SKELETAL: Within normal limits for patient age. MISCELLANEOUS: The visualized upper abdominal organs demonstrate no acute abnormality. CONCLUSION: 1. Patchy parenchymal infiltrate in the right lung base characteristic of pneumonia. This could be as piration pneumonia.. Hernando Villafuerte MD on October 01, 2016 at 23:57 Board Certified Radiologist. This report was verified electronically.
--- NOTE | 2016-10-02 00:13 | RADRPT ---
EXAM DATE/TIME: 10/01/2016 23:41 [facility] COMPARISON: No previous studies available for comparison. INDICATIONS : Sepsis; aspiration pneumonia. IV CONTRAST: 90 cc Omnipaque 350 (iohexol) IV ; Cumulative dose for multiple exams. ORAL CONTRAST: Prescribed oral contrast ingested. RADIATION DOSE: 15.72 CTDIvol (mGy) ; Combined studies - Thorax/Abdomen/Pelvis MEDICAL HISTORY : Cardiovascular disease. Hypertension. Parkinsons.Prostate cancer SURGICAL HISTORY : Prostatectomy. Appendectomy.Cholecystectomy. ENCOUNTER: Subsequent ACUITY: 1 week PAIN SCALE: Non-responsive LOCATION: abdomen TECHNIQUE: Volumetric scanning of the abdomen and pelvis was performed. Using automated exposure control and ad justment of the mA and/or kV according to patient size, radiation dose was kept as low as reasonably achievable to obtain optimal diagnostic quality images. FINDINGS: LOWER LUNGS: Parenchymal infiltrate in the right lung base. This is suggestive of right lower lung pneumonia. LIVER: Homogeneous density without lesion. There is mild dilation of the biliary tree. No gallbladder, francesca gically removed. A 5 mm probable hepatic cyst in the right lobe. SPLEEN: Normal size without lesion. PANCREAS: Within normal limits. KIDNEYS: Normal in size and shape. There is no mass, stone or hydronephrosis. 6.2 cm benign-appearing right r enal cyst along the midpole. ADRENAL GLANDS: Within normal limits. VASCULAR: There is no aortic aneurysm. Atherosclerotic changes BOWEL/MESENTERY: The stomach, small bowel, and colon demonstrate no acute abnormality. There is no free intraperitone al air or fluid. No inflammatory changes. There is stool in the colon. There is a gastrostomy tube in place as well as a jejunostomy tube. ABDOMINAL WALL: Within normal limits. RETROPERITONEUM: There is no lymphadenopathy. BLADDER: The bladder is decompressed with some air. There is a Klein catheter in the penile urethra. The tip i s within the penile urethra and is not currently in the urinary bladder. The balloon appears to be de flated. There are multiple surgical clips throughout the pelvis. REPRODUCTIVE: No definite pelvic masses. INGUINAL: There is no lymphadenopathy or hernia. MUSCULOSKELETAL: There is osteopenia and degenerative changes involving the lumbar spine and pelvis. There are a few n onspecific lucent lesions throughout the bony structures. CONCLUSION: 1. Right lower lung pneumonia. 2. 6.2 cm benign-appearing right renal cyst 3. Mild dilatation of the biliary tree. Most likely reservoir effect secondary to the cholecystectomy . Recommend correlation with liver laboratory values. 4. The Klein catheter tip is within the penile urethra. The balloon is partially deflated. Recommend advancing the Klein catheter to reposition in the urinary bladder. 5. Several nonspecific lucent/lytic lesions are seen throughout the bony structures. This could be re lated to prominent osteopenia however, cannot exclude bony metastatic disease. If clinically indicate d, a whole-body PET CT could be performed for further evaluation on a nonemergent outpatient basis. Hernando Villafuerte MD on October 02, 2016 at 0:01 Board Certified Radiologist. This report was verified electronically.
[2016-10-02] MEDS: PIPERACIL-TAZO 4.5 GM PREMIX 100 ML IV SCH ×4 (04:30→18:20)
[2016-10-02] MEDS: HYOSCYAMINE 0.125 MG TAB SL SCH ×6 (04:30→21:55)
[2016-10-02] MEDS ORDERED: PHARMACY ORDERED LAB ONE (04:45)
[2016-10-02 05:16] LABS: BICARBONATE 27.7 MEQ/L (21.0-32.0); POTASSIUM 3.1 MEQ/L (3.5-5.1)
[2016-10-02 05:20] LABS: VANCOMYCIN TROUGH 19.1 MCG/ML (5.0-10.0)
[2016-10-02] MEDS: CARBIDOPA/LEVODOPA 25 MG/100 MG TAB PO SCH ×4 (05:31→18:18)
[2016-10-02] MEDS: VANCOMYCIN INJ 750 MG in SODIUM CHLOR 0.9% 250 ML INJ 250 ML IV SCH ×2 (05:31→21:58)
[2016-10-02] MEDS: LEVOTHYROXINE SODIUM 112 MCG TAB PO SCH (05:31)
[2016-10-02] MEDS: RESP: BUDESONIDE 0.5 MG/2 ML NEB NEB SCH ×2 (08:00→19:43)
[2016-10-02] MEDS: DOCUSATE SODIUM 50 MG/SENNA 8.6 MG TAB G-TUBE SCH (09:00)
[2016-10-02] MEDS: OXYBUTYNIN CHLORIDE 5 MG TAB PO SCH ×2 (09:13→21:58)
[2016-10-02] MEDS: FAMOTIDINE 20 MG TAB PO SCH ×2 (09:15→21:55)
[2016-10-02] MEDS: SODIUM CHLORIDE 0.9% FLUSH 10 ML FLUSH IV FLUSH SCH (09:16)
[2016-10-02] MEDS ORDERED: POTASSIUM CHLOR 20 MEQ PREMIX 100 ML IV ONE (12:30)
[2016-10-02] MEDS: ENALAPRILAT 1.25 MG/ML VIAL IV PUSH PRN ×2 (12:39→21:57)
--- NOTE | 2016-10-02 13:38 | HHI.GIFU ---
Subjective Remarks Resting in bed. Still with frequent coughing. Nurse concerned that he could be aspirating at times. CT reviewed. J tube with TF at 10cc/hr. G tube hooked to wall suction, but nurse reports that the suction is turned off for gravity. Instructed nurse to place to gravity, by connecting kingsley bag to G tube and placing this below patient. cctv technician and nurse at bedside report frequent diarrhea and is requesting flexiseal. D/W both concern of risk for irritation/ulcerations to rectum with balloon, but they are very concerned with his excoriated skin from the diarrhea and would like this placed. (Lili Apodaca) Objective Vitals I&O Vital Signs Date Time Temp Pulse Resp B/P Pulse Ox O2 Delivery O2 Flow Rate FiO2 10/02/16 08:02 100 T-piece 28 10/02/16 07:40 97.4 81 20 191/87 100 10/02/16 04:00 98.6 86 20 139/66 96 10/02/16 00:00 97.3 100 20 106/62 95 10/01/16 20:00 97.1 85 19 118/60 99 10/01/16 16:23 98.5 86 18 149/70 100 I/O 10/01/16 10/01/16 10/01/16 10/02/16 10/02/16 10/02/16 07:00 15:00 23:00 07:00 15:00 23:00 Intake Total 1280 ml 825 ml Output Total 850 ml 150 ml 150 ml 150 ml 100 ml Balance 430 ml -150 ml -150 ml 675 ml -100 ml Intake Oral 0 ml IV Total 380 ml 380 ml Tube Feeding 300 ml 45 ml Other 600 ml 400 ml Output Urine Total 700 ml 150 ml 150 ml 150 ml Drainage Total 150 ml 100 ml # Bowel Movements 2 4 2 0 Laboratory Laboratory Tests Test 10/02/16 04:40 Sodium Level 141 Potassium Level 3.1 Chloride Level 106 Carbon Dioxide Level 27.7 Anion Gap 7 Blood Urea Nitrogen 6 Creatinine 0.59 Estimat Glomerular Filtration 157 Rate Random Glucose 83 Calcium Level 8.1 Vancomycin Level Trough 19.1 Imaging Last Impressions Chest CT 10/01/16 0000 Signed Impressions: Service Date/Time: Saturday, October 01, 2016 23:41 - CONCLUSION: 1. Patchy parenchymal infiltrate in the right lung base characteristic of pneumonia. This could be aspiration pneumonia.. Hernando Villafuerte MD Abdomen/Pelvis CT 10/01/16 0000 Signed Impressions: Service Date/Time: Saturday, October 01, 2016 23:41 - CONCLUSION: 1. Right lower lung pneumonia. 2. 6.2 cm benign-appearing right renal cyst 3. Mild dilatation of the biliary tree. Most likely reservoir effect secondary to the cholecystectomy. Recommend correlation with liver laboratory values. 4. The Kingsley catheter tip is within the penile urethra. The balloon is partially deflated. Recommend advancing the Kingsley catheter to reposition in the urinary bladder. 5. Several nonspecific lucent/lytic lesions are seen throughout the bony structures. This could be related to prominent osteopenia however, cannot exclude bony metastatic disease. If clinically indicated, a whole-body PET CT could be performed for further evaluation on a nonemergent outpatient basis. Hernando Villafuerte MD Abdomen X-Ray 09/30/16 0000 Signed Impressions: Service Date/Time: Friday, September 30, 2016 15:12 - CONCLUSION: Satisfactory location to the jejunostomy tube. Ronen Broussard MD Chest X-Ray 09/27/16 0000 Signed Impressions: Service Date/Time: Tuesday, September 27, 2016 13:55 - CONCLUSION: No obvious infiltrate. The right base is partially obscured by the contracted left upper extremity. Chet De Leon MD Tube Change 09/22/16 0000 Signed Impressions: Service Date/Time: Thursday, September 22, 2016 17:44 - CONCLUSION: Uncomplicated gastrojejunostomy tube exchange as above. Narayan Lake MD Physical Exam HEENT: Normocephalic; atraumatic; large amount of oral secretions CHEST: Course breath sounds, tracheostomy. Reyes secretions. CARDIAC: RRR ABDOMEN: Soft, nondistended, nontender; no hepatosplenomegaly; bowel sounds are present in all four quadrants. G/J tube EXTREMITIES: Multiple contractures. TOURS HOSTESS: Nonverbal (Lili Apodaca) Assessment and Plan Plan ASSESSMENT: - Dysphagia with recurrent aspiration. Pt with Advanced Parkinson's and Dementia, with dysphagia. He has G/J tube and was originally brought to ER for malfunctioning tube. S/P G/J tube replacement (09/22/16). However, since this has been replaced and he has been having issues with aspiration. ST is following, S/P modified catalan blue dye test- at which time patient had return of blue dye via trach suctioned and abnormal bolus holding requiring mouth to be suctioned as well. GI was consulted for ? transition to bolus feedings to minimize risk of aspiration and other recommendations. Bolus feedings are not recommended via J tube. Placement of G/J tube was confirmed with gastrografin through the J portion of the G/J tube (09/30/16). Abdomen/Pelvis CT (10/01/16)----> 1. Right lower lung pneumonia. 2. 6.2 cm benign-appearing right renal cyst 3. Mild dilatation of the biliary tree. Most likely reservoir effect secondary to the cholecystectomy. Recommend correlation with liver laboratory values. 4. The Kingsley catheter tip is within the penile urethra. The balloon is partially deflated. Recommend advancing the Kingsley catheter to reposition in the urinary bladder. 5. Several nonspecific lucent/lytic lesions are seen throughout the bony structures. This could be related to prominent osteopenia however, cannot exclude bony metastatic disease. If clinically indicated, a whole-body PET CT could be performed for further evaluation on a nonemergent outpatient basis. We have recommended that the patient be orally suctioned q2h, continuing levsin, recommend placement of G tube to gravity to help decompress the stomach to reduce the risk of aspiration. recommend suctioning oral secretions q2h, continuing levsin, and recommend placement of G tube to gravity to help decompress stomach to reduce the risk of aspiration. The G tube was placed to the wall suction canister without turning this on. Instructed the nurse to place to kingsley catheter and place below the patient for gravity drainage. - Diarrhea, multiple liquid stools today per caregiver and nurse- almost continuous. cctv technician and nurse requesting flexiseal- D/W them our concern of possible irritation/ulceratin of rectum from balloon, but they are concerned about worsening skin excoriation/breakdown from the diarrhea and would like this placed. Will check stool for CDiff. PLAN: - NPO - G tube to gravity- below patient - TF at 10cc/hr - Suction oral secretions q2h - Cont. Levsin - Protonix 40mg IV BID - ? Surgical J tube placement, further recommendations to follow after seen by Dr. Page ([facility]) Physician Comments Patient seen and examined Agree with above Continue with current supportive care Monitor labs In addition to placing the G-tube to gravity I would also hold his Ditropan and Levsin as these medications may slow down gastric emptying and gastrointestinal motility Will consider adding a prokinetic agent I doubt the need to have a surgically placed J-tube at this point I would seriously consider Gastrografin study of the small bowel with injection occurring through the G and J-tube so as to assess for motility and rule out obstruction as a potential cause for reflux and aspiration I would continue with continuous feeding but would also advocate that the G- tube be placed to gravity or maybe even suctioned periodically (Chester Page MD) Lili Apodaca Oct 02, 2016 13:38 Chester Page MD Oct 02, 2016 23:16
--- NOTE | 2016-10-02 13:39 | HHI.PR ---
Subjective Remarks Resting in bed closed eyes, nonverbal as usual Nurse is working on the G-tube, caregiver at the bedside Mostly clocked up to 2, discussed with GI Objective Vitals Vital Signs Date Time Temp Pulse Resp B/P Pulse Ox O2 Delivery O2 Flow Rate FiO2 10/02/16 11:05 98.5 122 20 121/69 100 10/02/16 08:02 100 T-piece 28 10/02/16 07:40 97.4 81 20 191/87 100 10/02/16 04:00 98.6 86 20 139/66 96 10/02/16 00:00 97.3 100 20 106/62 95 10/01/16 20:00 97.1 85 19 118/60 99 10/01/16 16:23 98.5 86 18 149/70 100 I/O 10/01/16 10/01/16 10/01/16 10/02/16 10/02/16 10/02/16 07:00 15:00 23:00 07:00 15:00 23:00 Intake Total 1280 ml 825 ml Output Total 850 ml 150 ml 150 ml 150 ml 100 ml Balance 430 ml -150 ml -150 ml 675 ml -100 ml Intake Oral 0 ml IV Total 380 ml 380 ml Tube Feeding 300 ml 45 ml Other 600 ml 400 ml Output Urine Total 700 ml 150 ml 150 ml 150 ml Drainage Total 150 ml 100 ml # Bowel Movements 2 4 2 0 Result Diagram: 10/02/16 0440 Objective Remarks - GENERAL: This is a frail,chronically ill 89 years old on T piece CARDIOVASCULAR: Regular rate and rhythm without murmurs, gallops, or rubs. RESPIRATORY: Decreased breath sounds. GASTROINTESTINAL: Abdomen soft, non-tender, nondistended. Normal active bowel sounds MUSCULOSKELETAL: Severe upper lower Extremities contractions without edema. NEURO: Nonverbal, closed eyes Procedures PEG replacement- 09/22 Date of Insertion: Sep 22, 2016 A/P Assessment and Plan 09/30:D/W GI [employer]ENWARE [employer]SEMBLER recommended avoiding boluses in the J-tube, discussed with nurse, Kingsley catheter leaking recommended changing if needed 10/01: Continue current care with antibiotic or ID, monitor for any fever, monitor CBC, KCl by mouth to place low potassium, Vasotec as needed to cover for elevated pressure, monitor blood pressure Medications administered NG tube comes out of the ET tube per the nurse will discuss with GI 10/02: Continue current care, J-tube o'clock top discussed with GI will get IR to review, discussed with nurse A/P: 89 yers old male- advanced Parkinson's disease, S/P CVA baseline- is total care , not interactive- admitted for MRSA Sepsis- on Vancomycin PNA-- Aspiration- sputum- Pseudomonas E coli UTI- on chronic kingsley - changed 09/22 Increase Levsin suctioning q 4 schedule and q 2 prn. Levsin SL On Vancomycin. and Zosyrobin Odell ff d/w daughter that - patient can also aspirate from his own secretions GT malfunction-PEG changed 09/22 - will get GI evaluation for recommendations - regarding prevention or minimizing aspiration- d/w and requested by daughter ? will; converting to bolus TF decrease risk of aspiration tube feedings restarted 09/28- at 10 cc/hr- no signs of TF in trach- increase to 25 cc/hr today ( at home goal rate was 55 cc/hr) Increase gradually on a daily cautiously basis till goal rate as tolerated and monitor closely tracheostomy in place- capped. duonebs q 4. suctioning prn Advanced Parkinson's - extremities- flexion contractures. continue meds stage 2 decubitus ulcer -wound care team ff History of hypothyroidism - continue on synthroid pericolace once daily Laura Brumfield MD Oct 02, 2016 13:39
[2016-10-02 21:47] LABS: C. DIFF EPI 027 PRESUMPTIVE NEGATIVE (NEGATIVE); C. DIFF TOXIN PCR NEGATIVE (NEGATIVE)
[2016-10-02] MEDS: LATANOPROST 0.005% OPHT SOLN 2.5 ML BTL EACH EYE SCH (21:59)
[2016-10-03] VITALS (7 sets, daily range): BP systolic 105–153; BP diastolic 62–85; PULSE 83–105; RESP 19–21; TEMP 96.1–98.2; O2SAT 97–100
[2016-10-03] MEDS: PRAMIPEXOLE DIHYDROCHLORIDE 0.25 MG TAB PO SCH ×4 (01:57→18:00)
[2016-10-03] MEDS: PIPERACIL-TAZO 4.5 GM PREMIX 100 ML IV SCH ×4 (01:57→17:18)
[2016-10-03] MEDS: CARBIDOPA/LEVODOPA 25 MG/100 MG TAB PO SCH ×4 (01:57→18:00)
[2016-10-03] MEDS: SODIUM CHLORIDE 5% OPHT SOLN 15 ML BTL EACH EYE SCH ×4 (01:58→17:05)
[2016-10-03] MEDS: SODIUM CHLORIDE 0.9% FLUSH 10 ML FLUSH IV FLUSH SCH ×2 (02:01→09:00)
[2016-10-03] MEDS ORDERED: DEXT 5%-NACL 0.9% 1000 ML INJ 1,000 ML IV SCH (03:08)
[2016-10-03] MEDS ORDERED: DEXTROSE 50% IN WATER 50 ML VIAL(D50) IV PUSH ONE (03:15)
[2016-10-03] MEDS: LEVOTHYROXINE SODIUM 112 MCG TAB PO SCH (06:44)
[2016-10-03] MEDS: RESP: BUDESONIDE 0.5 MG/2 ML NEB NEB SCH ×2 (07:30→20:00)
[2016-10-03] MEDS: DOCUSATE SODIUM 50 MG/SENNA 8.6 MG TAB G-TUBE SCH (09:00)
[2016-10-03] MEDS: FAMOTIDINE 20 MG TAB PO SCH ×2 (09:38→21:00)
--- NOTE | 2016-10-03 11:23 | HHI.GIFU ---
Subjective Remarks Resting in bed in no distress. Nurse reports that there has not been any TF suctioned from tracheostomy today. J tube is clogged and IR will call for patient to further assess. Daughter at bedside, would like some imaging to see if anything might be contributing to his reflux/regurgitation/aspiration. ( Lili Apodaca) Objective Vitals I&O Vital Signs Date Time Temp Pulse Resp B/P Pulse Ox O2 Delivery O2 Flow Rate FiO2 10/03/16 07:52 96.1 105 19 126/68 98 10/03/16 07:31 98 T-piece 6.00 28 10/03/16 06:05 98.2 92 21 105/62 100 10/03/16 02:05 96.9 83 21 128/67 100 10/02/16 21:13 97.5 79 21 157/83 100 10/02/16 19:44 97 T-piece 6.00 28 10/02/16 15:45 97.8 88 20 177/77 100 I/O 10/02/16 10/02/16 10/02/16 10/03/16 10/03/16 10/03/16 07:00 15:00 23:00 07:00 15:00 23:00 Intake Total 825 ml Output Total 150 ml 100 ml 300 ml 500 ml Balance 675 ml -100 ml -300 ml -500 ml IV Total 380 ml Tube Feeding 45 ml Other 400 ml Output Urine Total 150 ml 300 ml 500 ml Drainage Total 100 ml # Voids 2 # Bowel Movements 0 7 Laboratory Laboratory Tests Test 10/02/16 10/03/16 19:00 06:39 Stool C. difficile Toxin (PCR) NEGATIVE Stl C. difficile Toxin PRESUMPTIVE Epiderm 027 NEGATIVE Creatinine 0.61 Estimat Glomerular Filtration 151 Rate Imaging Last Impressions Chest CT 10/01/16 0000 Signed Impressions: Service Date/Time: Saturday, October 01, 2016 23:41 - CONCLUSION: 1. Patchy parenchymal infiltrate in the right lung base characteristic of pneumonia. This could be aspiration pneumonia.. Hernando Villafuerte MD Abdomen/Pelvis CT 10/01/16 0000 Signed Impressions: Service Date/Time: Saturday, October 01, 2016 23:41 - CONCLUSION: 1. Right lower lung pneumonia. 2. 6.2 cm benign-appearing right renal cyst 3. Mild dilatation of the biliary tree. Most likely reservoir effect secondary to the cholecystectomy. Recommend correlation with liver laboratory values. 4. The Klein catheter tip is within the penile urethra. The balloon is partially deflated. Recommend advancing the Klein catheter to reposition in the urinary bladder. 5. Several nonspecific lucent/lytic lesions are seen throughout the bony structures. This could be related to prominent osteopenia however, cannot exclude bony metastatic disease. If clinically indicated, a whole-body PET CT could be performed for further evaluation on a nonemergent outpatient basis. Hernando Villafuerte MD Abdomen X-Ray 09/30/16 0000 Signed Impressions: Service Date/Time: Friday, September 30, 2016 15:12 - CONCLUSION: Satisfactory location to the jejunostomy tube. Ronen Broussard MD Chest X-Ray 09/27/16 0000 Signed Impressions: Service Date/Time: Tuesday, September 27, 2016 13:55 - CONCLUSION: No obvious infiltrate. The right base is partially obscured by the contracted left upper extremity. Chet De Leon MD Tube Change 09/22/16 0000 Signed Impressions: Service Date/Time: Thursday, September 22, 2016 17:44 - CONCLUSION: Uncomplicated gastrojejunostomy tube exchange as above. Narayan Lake MD Physical Exam HEENT: Normocephalic; atraumatic; large amount of oral secretions CHEST: Course breath sounds, tracheostomy. Reyes secretions. CARDIAC: RRR ABDOMEN: Soft, nondistended, nontender; no hepatosplenomegaly; bowel sounds are present in all four quadrants. G/J tube EXTREMITIES: Multiple contractures. DAMPER MAKER: Nonverbal (Lili Apodaca) Assessment and Plan Plan ASSESSMENT: - Dysphagia with recurrent aspiration. Pt with Advanced Parkinson's and Dementia, with dysphagia. He has G/J tube and was originally brought to ER for malfunctioning tube. S/P G/J tube replacement (09/22/16). However, since this has been replaced and he has been having issues with aspiration. ST is following, S/P modified catalan blue dye test- at which time patient had return of blue dye via trach suctioned and abnormal bolus holding requiring mouth to be suctioned as well. GI was consulted for ? transition to bolus feedings to minimize risk of aspiration and other recommendations. Bolus feedings are not recommended via J tube. Placement of G/J tube was confirmed with gastrografin through the J portion of the G/J tube (09/30/16). Abdomen/Pelvis CT (10/01/16)----> 1. Right lower lung pneumonia. 2. 6.2 cm benign-appearing right renal cyst 3. Mild dilatation of the biliary tree. Most likely reservoir effect secondary to the cholecystectomy. Recommend correlation with liver laboratory values. 4. The Klein catheter tip is within the penile urethra. The balloon is partially deflated. Recommend advancing the Klein catheter to reposition in the urinary bladder. 5. Several nonspecific lucent/lytic lesions are seen throughout the bony structures. This could be related to prominent osteopenia however, cannot exclude bony metastatic disease. If clinically indicated, a whole-body PET CT could be performed for further evaluation on a nonemergent outpatient basis. G tube was placed to gravity. He has not had any TF suctioned from tracheostomy today per nurse, but she does report that TF has been off because the J tube is clogged. IR has been notified and they will be calling to further assess. Levsin and Ditropan on hold, as both may contribute to delayed gastric emptying. Will give trial of EES (per G tube, as IV is not available at this time) and will check SBFT with gastrografin through G tube to to assess for motility and rule out obstruction as a potential cause for reflux and aspiration. D/W daughter at the bedside. - Diarrhea. Improved. CDiff negative. PLAN: - NPO - IR to evaluate malfunctioning G/J tube - Cont. PPI - Trial of EES via G tube (IV is not available at this time) - Levsin/Ditropan on hold, as they may be contributing to delayed gastric emptying - SBFT with gastrografin via G tube - Add Methylene blue dye to TF - G tube to gravity while receiving continuous feedings - Do not recommend bolus feedings - Suction oral secretions q2h - SUpportive care - Further recommendations to follow based on results of above - Pt seen and examined by Dr. Page and myself and this note is written on his behalf (Lili Apodaca) Physician Comments Patient seen and examined Agree with above Continue with current supportive care Monitor labs (Chester Page MD) Lili Apodaca Oct 03, 2016 11:23 Chester Page MD Oct 03, 2016 22:46
[2016-10-03] MEDS ORDERED: IOHEXOL 350 MG/ML 50 ML BTL (for RAD DIAG) J-TUBE ONE (14:22)
--- NOTE | 2016-10-03 15:19 | RADRPT ---
EXAM DATE/TIME: 10/03/2016 13:55 [facility] COMPARISON: CHANGE OF GJ-TUBE CATHETER, September 22, 2016, 17:44. INDICATIONS : Patient presents with clogged transgastric tube in need of exchange for nutrition. MEDICAL HISTORY : History Endocarditis Parkinson's disease Lewy bodies syndrome HTN Orthostatic hypotension Thyroid disease Hx Prostate cancer Hx TB SURGICAL HISTORY : Andreea Appendy Prostatectomy Tonsillectomy G-J tube Liposuction Bilat cataract with corneal transplant Hiatal hernia ENCOUNTER: Subsequent ACUITY: 1 week PAIN SCORE: 0/10 LOCATION: n/a FLUORO TIME: 2.1 minutes IMAGE SERIES: 1 CONTRAST: 30 cc Omnipaque (iohexol) 350 DEVICE(S): 1.) 22 [place] Transgastric tube PROCEDURE : 1. Fluoroscopically guided gastrojejunostomy tube exchange. 2. Conscious sedation with continuous EKG and oximetry monitoring. The risks, benefits and alternatives to the procedure were explained and verbal and written consent w as obtained. The site was prepped in sterile fashion. Full sterile technique was used, including ca p, mask, sterile gloves and gown and a large sterile sheet. Hand hygiene and 2% chlorhexidine and/or betadine/alcohol prep was utilized per protocol for cutaneous antisepsis. The skin and subcutaneous tissues were infiltrated with local anesthetic solution. With fluoroscopic guidance a guidewire was passed through the previous gastrojejunostomy tube and a f resh tube was placed over the guidewire. The balloon was inflated with appropriate volume of saline. Injection of positive contrast demonstrates good position of the gastric and jejunal lumens of the tube. Conscious sedation was performed with the prescribed dosages and duration as above in the presence of an independent trained radiology nurse to assist in the monitoring of the patient. EKG and oximetry remained stable throughout the procedure. The patient tolerated the procedure well and there were n o complications. The patient was sent to post anesthesia recovery in stable condition. CONCLUSION: Uncomplicated gastrojejunostomy tube exchange as above. Mando Alarcon MD on October 03, 2016 at 15:17 Board Certified Radiologist. This report was verified electronically.
--- NOTE | 2016-10-03 15:28 | HHI.IDPN ---
Note Infectious Disease Note Patient has eyes open. looks comfortable. Reyes secretions. Trach collar. Afebrile. Had PEG tube replacement today. 09/27 - Copious frothy tube feed colored secretions coming from ETT. PAST MEDICAL HISTORY: 1. Advanced Parkinson's disease. 2. Alzheimer's disease. 3. Hypertension. 4. Orthostatic hypotension. 5. History of endocarditis. 6. Prostate cancer. 7. Prostatectomy. 8. Cholecystectomy. 9. Appendectomy. 10. Tonsillectomy. 11. Chronic trach. 12. G-tube placement. ALLERGIES: 1. CELEXA. 2. ATIVAN. 3. ARICEPT. ANTIBIOTICS: 1. Vancomycin. 2. Zosyn. SOCIAL HISTORY: The patient is cared for at home by caregivers. No tobacco, alcohol or illicit drugs. REVIEW OF SYSTEMS: Unable to obtain. OBJECTIVE: Vital Signs Date Time Temp Pulse Resp B/P Pulse Ox O2 Delivery O2 Flow Rate FiO2 10/03/16 11:40 97.3 96 19 153/85 100 10/03/16 07:52 96.1 105 19 126/68 98 10/03/16 07:31 98 T-piece 6.00 28 10/03/16 06:05 98.2 92 21 105/62 100 10/03/16 02:05 96.9 83 21 128/67 100 10/02/16 21:13 97.5 79 21 157/83 100 10/02/16 19:44 97 T-piece 6.00 28 10/02/16 15:45 97.8 88 20 177/77 100 10/02/16 10/02/16 10/03/16 15:00 23:00 07:00 Output Total 100 ml 300 ml 500 ml Balance -100 ml -300 ml -500 ml Output Urine Total 300 ml 500 ml Drainage Total 100 ml # Voids 2 # Bowel Movements 7 Laboratory Tests Test 10/02/16 10/03/16 04:40 06:39 Sodium Level 141 MEQ/L Potassium Level 3.1 MEQ/L Chloride Level 106 MEQ/L Carbon Dioxide Level 27.7 MEQ/L Anion Gap 7 MEQ/L Blood Urea Nitrogen 6 MG/DL Creatinine 0.59 MG/DL 0.61 MG/DL Estimat Glomerular Filtration 157 ML/MIN 151 ML/MIN Rate Random Glucose 83 MG/DL Calcium Level 8.1 MG/DL Microbiology Date/Time Procedure Status Source Growth 09/25/16 22:45 Gram Stain - Final Complete Sputum Endotracheal 09/25/16 22:45 Sputum Culture - Final Complete Pseudomonas Aeruginosa Microbiology Date/Time Procedure Status Source Growth 09/22/16 14:00 Aerobic Blood Culture - Final Complete Blood Peripheral S. Aureus Mrsa 09/22/16 14:00 Anaerobic Blood Culture - Final Complete Staph Sp Coagulase Negative 09/22/16 14:00 Urine Culture - Final Complete Urine Catheterized Urine Escherichia Coli 09/22/16 14:05 Aerobic Blood Culture - Preliminary Resulted Blood Peripheral S. Aureus Mrsa Staph Sp Coagulase Negative 09/22/16 14:05 Anaerobic Blood Culture - Preliminary Resulted S. Aureus Mrsa Staph Sp Coagulase Negative 09/25/16 07:59 Aerobic Blood Culture Received Blood Peripheral Pending 09/25/16 07:59 Anaerobic Blood Culture Received Blood Peripheral Pending 09/25/16 08:05 Aerobic Blood Culture Received Blood Peripheral Pending 09/25/16 08:05 Anaerobic Blood Culture Received Blood Peripheral Pending IMAGING: Chest X-Ray 09/27/16 0000 Signed Impressions: Service Date/Time: Tuesday, September 27, 2016 13:55 - CONCLUSION: No obvious infiltrate. The right base is partially obscured by the contracted left upper extremity. Chet De Leon MD Tube Change 09/22/16 0000 Signed Impressions: Service Date/Time: Thursday, September 22, 2016 17:44 - CONCLUSION: Uncomplicated gastrojejunostomy tube exchange as above. Narayan Lake MD Chest X-Ray 09/22/16 0000 Signed Impressions: Service Date/Time: Thursday, September 22, 2016 14:17 - CONCLUSION: Underinflated examination with likely atelectasis at the lung bases. Technique results in less than optimal evaluation of the lung parenchyma but no acute finding is identified. Jay Choudhury MD Abdomen X-Ray 09/22/16 0000 Signed Impressions: Service Date/Time: Thursday, September 22, 2016 14:20 - CONCLUSION: Contrast within the stomach and proximal small intestinal loop. Mason Clayton MD PHYSICAL EXAMINATION: GENERAL: No acute distress. HEENT: No icterus. No conjunctival erythema. Oropharynx: moist mucosa. NECK: The neck is supple. LUNGS: Decreased BS and slight rhonchi. HEART: Regular rate and rhythm. No audible murmurs or rubs or gallops. ABDOMEN: Bowel sounds present, soft, nontender. EXTREMITIES: No clubbing or cyanosis or edema. The patient has contractures of the extremities and muscle wasting apparent. NEUROLOGIC: Unable to fully assess. SKIN: No diffuse rash. PSYCHIATRIC: Unable to fully assess. IMPRESSION: 1. Aspiration. Pseudomonas pneumonia. Recent active aspiration from tube feeds on 09/27. 2. Bacteremia due to MRSA. Improved. 3. Urinary tract infection due to E-coli. 4. PEG-tube malfunction. PEG replaced x 2. RECOMMENDATIONS: 1. Continue vancomycin until 10/06. (aim for trough 15 - 20). Pharmacy dosing. 2. Continue PIP/tazobactam. 3. Monitor clinical status. CXR being performed for PEG placement. Will follow. Lc Odell MD Oct 03, 2016 15:28
--- NOTE | 2016-10-03 15:48 | PD.RAD ---
Post Procedure Progress Note Pre Procedure Diagnosis: (1) Malfunctioning jejunostomy tube Post Procedure Diagnosis: (1) Malfunctioning jejunostomy tube Procedure Date: Oct 03, 2016 Supervising Radiologist: Mando Alarcon Proceduralist/Assist: RT Jess(R)(CV) Anesthesia: Local Plan of Activity Patient to Unit: Nursing Unit Patient Condition: Poor See PACS Report for procedural detail/treatment Feeding Tube Replacement Mando Alarcon MD Oct 03, 2016 15:48
[2016-10-03] MEDS ORDERED: DIATRIZOATE MEGLUM/DIATRIZOATE SOD 120 ML BTL (for RAD DIAG) G-TUBE ONE (16:00)
[2016-10-03] MEDS ORDERED: PHARMACY ORDERED LAB ONE (16:45)
[2016-10-03] MEDS: ERYTHROMYCIN ETHYLSUCCINATE 200 MG/5 ML SUSP 100 ML BOTTLE G-TUBE SCH ×2 (17:05→22:00)
--- NOTE | 2016-10-03 17:11 | HHI.PR ---
Subjective Remarks Patient just came from J-tube revision Nonverbal, I discussed with his daughter today she requested nystatin powder Objective Vitals Vital Signs Date Time Temp Pulse Resp B/P Pulse Ox O2 Delivery O2 Flow Rate FiO2 10/03/16 15:46 97.0 92 19 114/64 97 10/03/16 11:40 97.3 96 19 153/85 100 10/03/16 07:52 96.1 105 19 126/68 98 10/03/16 07:31 98 T-piece 6.00 28 10/03/16 06:05 98.2 92 21 105/62 100 10/03/16 02:05 96.9 83 21 128/67 100 10/02/16 21:13 97.5 79 21 157/83 100 10/02/16 19:44 97 T-piece 6.00 28 I/O 10/02/16 10/02/16 10/02/16 10/03/16 10/03/16 10/03/16 07:00 15:00 23:00 07:00 15:00 23:00 Intake Total 825 ml Output Total 150 ml 100 ml 300 ml 500 ml 450 ml Balance 675 ml -100 ml -300 ml -500 ml -450 ml IV Total 380 ml Tube Feeding 45 ml Other 400 ml Output Urine Total 150 ml 300 ml 500 ml 450 ml Drainage Total 100 ml # Voids 2 # Bowel Movements 0 7 Result Diagram: 10/03/16 0639 Objective Remarks - GENERAL: This is a frail,chronically ill 89 years old on T piece CARDIOVASCULAR: Regular rate and rhythm without murmurs, gallops, or rubs. RESPIRATORY: Decreased breath sounds. GASTROINTESTINAL: Abdomen soft, non-tender, nondistended. Normal active bowel sounds MUSCULOSKELETAL: Severe upper lower Extremities contractions without edema. NEURO: Nonverbal, closed eyes Procedures PEG replacement- 09/22 Date of Insertion: Sep 22, 2016 A/P Assessment and Plan 09/30:D/W GI BOAT RENTAL CLERK recommended avoiding boluses in the J-tube, discussed with nurse, Kingsley catheter leaking recommended changing if needed 10/01: Continue current care with antibiotic or ID, monitor for any fever, monitor CBC, KCl by mouth to place low potassium, Vasotec as needed to cover for elevated pressure, monitor blood pressure Medications administered NG tube comes out of the ET tube per the nurse will discuss with GI 10/02: Continue current care, J-tube o'clock top discussed with GI will get IR to review, discussed with nurse 10/03: Patient went to IR for J-tube revision, continue current treatment GI following for possible continuing aspiration A/P: 89 yers old male- advanced Parkinson's disease, S/P CVA baseline- is total care , not interactive- admitted for MRSA Sepsis- on Vancomycin PNA-- Aspiration- sputum- Pseudomonas E coli UTI- on chronic kingsley - changed 09/22 Increase Levsin suctioning q 4 schedule and q 2 prn. Levsin SL On Vancomycin. and Zosyrobin Odell ff d/w daughter that - patient can also aspirate from his own secretions GT malfunction-PEG changed 09/22 - will get GI evaluation for recommendations - regarding prevention or minimizing aspiration- d/w and requested by daughter ? will; converting to bolus TF decrease risk of aspiration tube feedings restarted 09/28- at 10 cc/hr- no signs of TF in trach- increase to 25 cc/hr today ( at home goal rate was 55 cc/hr) Increase gradually on a daily cautiously basis till goal rate as tolerated and monitor closely tracheostomy in place- capped. duonebs q 4. suctioning prn Advanced Parkinson's - extremities- flexion contractures. continue meds stage 2 decubitus ulcer -wound care team ff History of hypothyroidism - continue on synthroid pericolace once daily Laura Brumfield MD Oct 03, 2016 17:11
--- NOTE | 2016-10-03 17:33 | RADRPT ---
EXAM DATE/TIME: 10/03/2016 15:13 [facility] COMPARISON: No previous studies available for comparison. INDICATIONS : Rule out for obstruction for potential cause of reflux, motility. FLUORO TIME: 0 minutes IMAGE COUNT: 2 CONTRAST: [facility] IMAGING TIME(S): 15 min, 1 hr MEDICAL HISTORY : Hypertension. Carcinoma, prostatic. History Endocarditis, Parkinson's disease,orthostatic hypote nsion, thyroid disease, tb, gerd SURGICAL HISTORY : Appendectomy. Cholecystectomy. Tonsillectomy. Prostatectomy , g-j tube, liposuction,bilat catar act with corneal transplant, hiatal hernia repair ENCOUNTER: Initial ACUITY: 1 day PAIN SCORE: Non-responsive. LOCATION: Left upper quadrant abdomen FINDINGS: There is limited visualization of the stomach which was decompressed. This study was performed portab ly through the gastrostomy tube. No preliminary shelter supervisor film was obtained. Examination of the small bowel demonstrates normal mucosal pattern involving the jejunum and ileum. There is no evidence of mass or obstruction. No intraluminal filling defects are identified. Small bowel transit time is normal at 1.5 hours. No fluoroscopy was performed. There are multiple surgical clips and maricruz in the abdomen. CONCLUSION: Limited portable Gastrografin small bowel follow through demonstrating normal motilit y and no evidence of obstruction. Luis Heck MD on October 03, 2016 at 17:29 Board Certified Radiologist. This report was verified electronically.
[2016-10-03] MEDS: VANCOMYCIN INJ 750 MG in SODIUM CHLOR 0.9% 250 ML INJ 250 ML IV SCH (19:01)
[2016-10-04] VITALS (8 sets, daily range): BP systolic 99–158; BP diastolic 58–82; PULSE 88–102; RESP 18–20; TEMP 96.4–99.2; O2SAT 97–100
[2016-10-04] MEDS: PIPERACIL-TAZO 4.5 GM PREMIX 100 ML IV SCH ×4 (01:03→16:48)
[2016-10-04] MEDS: NYSTATIN 100,000 U/GM PWD 15 GM BTL TOPICAL SCH ×4 (01:03→22:59)
[2016-10-04] MEDS: LATANOPROST 0.005% OPHT SOLN 2.5 ML BTL EACH EYE SCH ×2 (01:04→22:59)
[2016-10-04] MEDS: SODIUM CHLORIDE 5% OPHT SOLN 15 ML BTL EACH EYE SCH ×5 (01:04→22:59)
[2016-10-04] MEDS: SODIUM CHLORIDE 0.9% FLUSH 10 ML FLUSH IV FLUSH SCH ×2 (03:03→09:00)
[2016-10-04] MEDS: SODIUM CHLORIDE 0.9% FLUSH 10 ML FLUSH IV FLUSH PRN (05:04)
[2016-10-04] MEDS: PRAMIPEXOLE DIHYDROCHLORIDE 0.25 MG TAB PO SCH ×4 (05:05→18:00)
[2016-10-04] MEDS: CARBIDOPA/LEVODOPA 25 MG/100 MG TAB PO SCH ×4 (05:05→18:00)
[2016-10-04] MEDS: ERYTHROMYCIN ETHYLSUCCINATE 200 MG/5 ML SUSP 100 ML BOTTLE G-TUBE SCH ×3 (05:05→22:00)
[2016-10-04] MEDS: LEVOTHYROXINE SODIUM 112 MCG TAB PO SCH (05:05)
[2016-10-04] MEDS: DEXTROSE 50% IN WATER 50 ML VIAL(D50) IV PUSH PRN (08:12)
[2016-10-04] MEDS: FAMOTIDINE 20 MG TAB PO SCH ×2 (09:00→21:00)
[2016-10-04] MEDS: DOCUSATE SODIUM 50 MG/SENNA 8.6 MG TAB G-TUBE SCH (09:00)
[2016-10-04] MEDS: RESP: ALBUTEROL 2.5 MG/IPRATROPIUM 0.5 MG NEB (PRN) NEB (09:39)
[2016-10-04] MEDS: RESP: BUDESONIDE 0.5 MG/2 ML NEB NEB SCH ×2 (09:40→20:00)
[2016-10-04] MEDS: VANCOMYCIN INJ 750 MG in SODIUM CHLOR 0.9% 250 ML INJ 250 ML IV SCH (12:22)
--- NOTE | 2016-10-04 17:00 | HHI.PR ---
Subjective Remarks Laying in bed looks comfortable, J-tube has been repaired yesterday by IR will start penetration tube feeds Discussed with the daughter over the phone , explained the clinical update afebrile Objective Vitals Vital Signs Date Time Temp Pulse Resp B/P Pulse Ox O2 Delivery O2 Flow Rate FiO2 10/04/16 12:00 97.2 102 18 137/73 99 10/04/16 09:40 99 T-piece 5.00 28 10/04/16 08:00 99.2 92 20 99/58 100 10/04/16 06:09 97.9 95 20 158/72 100 10/04/16 01:18 96.4 89 20 155/77 97 10/03/16 20:00 97.7 88 21 152/70 99 10/03/16 20:00 97 T-piece 6.00 28 I/O 10/03/16 10/03/16 10/03/16 10/04/16 10/04/16 10/04/16 07:00 15:00 23:00 07:00 15:00 23:00 Output Total 500 ml 450 ml 300 ml Balance -500 ml -450 ml -300 ml Output Urine Total 500 ml 450 ml 300 ml Result Diagram: 10/03/16 0639 Objective Remarks - GENERAL: This is a frail,chronically ill 89 years old on T piece CARDIOVASCULAR: Regular rate and rhythm without murmurs, gallops, or rubs. RESPIRATORY: Decreased breath sounds. GASTROINTESTINAL: Abdomen soft, non-tender, nondistended. Normal active bowel sounds MUSCULOSKELETAL: Severe upper lower Extremities contractions without edema. NEURO: Nonverbal, closed eyes Procedures PEG replacement- 09/22 Date of Insertion: Sep 22, 2016 A/P Assessment and Plan 09/30:D/W GI MATERIAL HANDLER recommended avoiding boluses in the J-tube, discussed with nurse, Kingsley catheter leaking recommended changing if needed 10/01: Continue current care with antibiotic or ID, monitor for any fever, monitor CBC, KCl by mouth to place low potassium, Vasotec as needed to cover for elevated pressure, monitor blood pressure Medications administered NG tube comes out of the ET tube per the nurse will discuss with GI 10/02: Continue current care, J-tube o'clock top discussed with GI will get IR to review, discussed with nurse 10/03: Patient went to IR for J-tube revision, continue current treatment GI following for possible continuing aspiration 10/04: J-tube revised by IR, start to feed per GI recommendation, discussed with the daughter over the phone A/P: 89 yers old male- advanced Parkinson's disease, S/P CVA baseline- is total care , not interactive- admitted for MRSA Sepsis- on Vancomycin PNA-- Aspiration- sputum- Pseudomonas E coli UTI- on chronic kingsley - changed 09/22 Increase Levsin suctioning q 4 schedule and q 2 prn. Levsin SL On Vancomycin. and Kayla Odell ff d/w daughter that - patient can also aspirate from his own secretions GT malfunction-PEG changed 09/22 - will get GI evaluation for recommendations - regarding prevention or minimizing aspiration- d/w and requested by daughter ? will; converting to bolus TF decrease risk of aspiration tube feedings restarted 09/28- at 10 cc/hr- no signs of TF in trach- increase to 25 cc/hr today ( at home goal rate was 55 cc/hr) Increase gradually on a daily cautiously basis till goal rate as tolerated and monitor closely tracheostomy in place- capped. duonebs q 4. suctioning prn Advanced Parkinson's - extremities- flexion contractures. continue meds stage 2 decubitus ulcer -wound care team ff History of hypothyroidism - continue on synthroid pericolace once daily Laura Brumfield MD Oct 04, 2016 16:59
[2016-10-05] VITALS (8 sets, daily range): BP systolic 119–175; BP diastolic 70–90; PULSE 72–110; RESP 19–21; TEMP 98.1–98.9; O2SAT 96–100
[2016-10-05] MEDS: VANCOMYCIN INJ 750 MG in SODIUM CHLOR 0.9% 250 ML INJ 250 ML IV SCH ×3 (04:48→23:12)
[2016-10-05] MEDS: PIPERACIL-TAZO 4.5 GM PREMIX 100 ML IV SCH ×6 (04:49→23:12)
[2016-10-05] MEDS: SODIUM CHLORIDE 0.9% FLUSH 10 ML FLUSH IV FLUSH SCH ×3 (04:50→21:00)
[2016-10-05] MEDS: NYSTATIN 100,000 U/GM PWD 15 GM BTL TOPICAL SCH ×3 (04:51→21:59)
[2016-10-05] MEDS: SODIUM CHLORIDE 5% OPHT SOLN 15 ML BTL EACH EYE SCH ×3 (04:51→18:33)
[2016-10-05] MEDS: ERYTHROMYCIN ETHYLSUCCINATE 200 MG/5 ML SUSP 100 ML BOTTLE G-TUBE SCH ×3 (04:52→21:59)
[2016-10-05] MEDS: LEVOTHYROXINE SODIUM 112 MCG TAB PO SCH (04:52)
[2016-10-05] MEDS: PRAMIPEXOLE DIHYDROCHLORIDE 0.25 MG TAB PO SCH ×4 (04:52→18:32)
[2016-10-05] MEDS: CARBIDOPA/LEVODOPA 25 MG/100 MG TAB PO SCH ×4 (04:54→17:12)
[2016-10-05] MEDS: ENALAPRILAT 1.25 MG/ML VIAL IV PUSH PRN ×2 (04:55→15:37)
[2016-10-05] MEDS: SODIUM CHLORIDE 0.9% FLUSH 10 ML FLUSH IV FLUSH PRN (04:55)
[2016-10-05 07:28] LABS: AUTOMATED NEUTROPHIL # 3.7 TH/MM3 (1.8-7.7); BASOPHIL % 0.5 % (0.0-2.0); EOSINOPHIL # 0.7 TH/MM3 (0-0.4); EOSINOPHIL % 10.6 % (0.0-4.0); HEMATOCRIT 32.8 % (39.0-51.0); HEMO FLAGS DIFF FINAL; LYMPH % 19.4 % (9.0-44.0); LYMPHOCYTE # 1.2 TH/MM3 (1.0-4.8); MEAN CELL VOLUME 81.7 FL (80.0-100.0); MEAN CORPUSCULAR HEMOGLOBIN 26.1 PG (27.0-34.0); MEAN CORPUSCULAR HGB CONC 31.9 % (32.0-36.0); MONO % 10.4 % (0.0-8.0); NEUT % 59.1 % (16.0-70.0); PLATELET COUNT 279 TH/MM3 (150-450); RED BLOOD COUNT 4.02 MIL/MM3 (4.50-5.90); WHITE BLOOD COUNT 6.3 TH/MM3 (4.0-11.0)
[2016-10-05 07:34] LABS: BICARBONATE 27.7 MEQ/L (21.0-32.0); POTASSIUM 3.1 MEQ/L (3.5-5.1)
[2016-10-05] MEDS: RESP: BUDESONIDE 0.5 MG/2 ML NEB NEB SCH ×2 (08:21→20:16)
[2016-10-05] MEDS: RESP: ALBUTEROL 2.5 MG/IPRATROPIUM 0.5 MG NEB (PRN) NEB (08:21)
[2016-10-05] MEDS: FAMOTIDINE 20 MG TAB PO SCH ×2 (09:00→21:59)
[2016-10-05] MEDS: DOCUSATE SODIUM 50 MG/SENNA 8.6 MG TAB G-TUBE SCH (09:00)
[2016-10-05] MEDS: DEXTROSE 50% IN WATER 50 ML VIAL(D50) IV PUSH PRN (09:39)
[2016-10-05] MEDS ORDERED: POTASSIUM CHLORIDE 25 MEQ EFFERVESCENT TAB PO ONE (12:15)
[2016-10-05] MEDS ORDERED: Vancomycin Consult Pharmacy 1 EA OTHER SCH (12:15)
--- NOTE | 2016-10-05 12:26 | HHI.PR ---
Subjective Remarks Clinically no change, patient sitting in his usual physician, eyes half open, discussed with the daughter with the caregiver also at the bedside Discussed with the nurse and with the GI NATURAL RESOURCE TECHNICIAN, plan to examine the G-NJ tube to rule out aspiration Objective Vitals Vital Signs Date Time Temp Pulse Resp B/P Pulse Ox O2 Delivery O2 Flow Rate FiO2 10/05/16 08:21 99 T-piece 6.00 28 10/05/16 08:00 98.9 102 21 147/76 99 10/05/16 04:00 98.3 72 19 172/71 97 10/05/16 00:00 98.3 75 19 175/87 100 10/04/16 21:10 100 T-piece 28 10/04/16 20:00 98.7 88 20 152/73 98 10/04/16 16:00 98.5 100 20 138/82 100 I/O 10/04/16 10/04/16 10/04/16 10/05/16 10/05/16 10/05/16 07:00 15:00 23:00 07:00 15:00 23:00 Output Total 300 ml 450 ml 150 ml 425 ml Balance -300 ml -450 ml -150 ml -425 ml Output Urine Total 300 ml 450 ml 150 ml 425 ml # Bowel Movements 0 Result Diagram: 10/05/16 0635 10/05/16 0635 Objective Remarks - GENERAL: This is a frail,chronically ill 89 years old on T piece CARDIOVASCULAR: Regular rate and rhythm without murmurs, gallops, or rubs. RESPIRATORY: Decreased breath sounds. GASTROINTESTINAL: Abdomen soft, non-tender, nondistended. Normal active bowel sounds MUSCULOSKELETAL: Severe upper lower Extremities contractions without edema. NEURO: Nonverbal, closed eyes Procedures PEG replacement- 09/22 Date of Insertion: Sep 22, 2016 A/P Assessment and Plan 09/30:D/W GI NATURAL RESOURCE TECHNICIAN recommended avoiding boluses in the J-tube, discussed with nurse, Kingsley catheter leaking recommended changing if needed 10/01: Continue current care with antibiotic or ID, monitor for any fever, monitor CBC, KCl by mouth to place low potassium, Vasotec as needed to cover for elevated pressure, monitor blood pressure Medications administered NG tube comes out of the ET tube per the nurse will discuss with GI 10/02: Continue current care, J-tube o'clock top discussed with GI will get IR to review, discussed with nurse 10/03: Patient went to IR for J-tube revision, continue current treatment GI following for possible continuing aspiration 10/04: J-tube revised by IR, start to feed per GI recommendation, discussed with the daughter over the phone 10/05: Discussed with the nurse and with the GI NATURAL RESOURCE TECHNICIAN WELL as the daughter, plan to examine the G-NJ tube to rule out aspiration by the GI A/P: 89 yers old male- advanced Parkinson's disease, S/P CVA baseline- is total care , not interactive- admitted for MRSA Sepsis- on Vancomycin PNA-- Aspiration- sputum- Pseudomonas E coli UTI- on chronic kingsley - changed 09/22 Increase Levsin suctioning q 4 schedule and q 2 prn. Levsin SL On Vancomycin. and Kayla Odell ff d/w daughter that - patient can also aspirate from his own secretions GT malfunction-PEG changed 09/22 - GIff for recommendations -r no bolus TF to decrease risk of aspiration G-J tube revised by IR 10/04, restarted , ff by GI tracheostomy in place- capped. duonebs q 4. suctioning prn Advanced Parkinson's - extremities- flexion contractures. continue meds stage 2 decubitus ulcer -wound care team ff History of hypothyroidism - continue on synthroid pericolace once daily Laura Brumfield MD Oct 05, 2016 12:25 Laura Brumfield MD Oct 05, 2016 12:25
--- NOTE | 2016-10-05 12:28 | HHI.GIFU ---
Subjective Remarks Resting in bed. TF just restarted. No signs of aspiration at this time. + Liquid stool. Does not appear to have abdominal tenderness. D/W SBFT results with daughter and caregiver at bedside. (Lili Apodaca) Objective Vitals I&O Vital Signs Date Time Temp Pulse Resp B/P Pulse Ox O2 Delivery O2 Flow Rate FiO2 10/05/16 08:21 99 T-piece 6.00 28 10/05/16 08:00 98.9 102 21 147/76 99 10/05/16 04:00 98.3 72 19 172/71 97 10/05/16 00:00 98.3 75 19 175/87 100 10/04/16 21:10 100 T-piece 28 10/04/16 20:00 98.7 88 20 152/73 98 10/04/16 16:00 98.5 100 20 138/82 100 I/O 10/04/16 10/04/16 10/04/16 10/05/16 10/05/16 10/05/16 07:00 15:00 23:00 07:00 15:00 23:00 Output Total 300 ml 450 ml 150 ml 425 ml Balance -300 ml -450 ml -150 ml -425 ml Output Urine Total 300 ml 450 ml 150 ml 425 ml # Bowel Movements 0 Laboratory Laboratory Tests Test 10/05/16 06:35 White Blood Count 6.3 Red Blood Count 4.02 Hemoglobin 10.5 Hematocrit 32.8 Mean Corpuscular Volume 81.7 Mean Corpuscular Hemoglobin 26.1 Mean Corpuscular Hemoglobin 31.9 Concent Red Cell Distribution Width 19.0 Platelet Count 279 Mean Platelet Volume 6.6 Neutrophils (%) (Auto) 59.1 Lymphocytes (%) (Auto) 19.4 Monocytes (%) (Auto) 10.4 Eosinophils (%) (Auto) 10.6 Basophils (%) (Auto) 0.5 Neutrophils # (Auto) 3.7 Lymphocytes # (Auto) 1.2 Monocytes # (Auto) 0.7 Eosinophils # (Auto) 0.7 Basophils # (Auto) 0.0 CBC Comment DIFF FINAL Differential Comment Hematology Comments Sodium Level 144 Potassium Level 3.1 Chloride Level 105 Carbon Dioxide Level 27.7 Anion Gap 11 Blood Urea Nitrogen 4 Creatinine 0.54 Estimat Glomerular Filtration 174 Rate Random Glucose 72 Calcium Level 8.4 Imaging Last Impressions Tube Change 10/03/16 Signed Impressions: Service Date/Time: Monday, October 03, 2016 13:55 - CONCLUSION: Uncomplicated gastrojejunostomy tube exchange as above. Mando Alarcon MD Small Bowel X-Ray 10/03/16 0000 Signed Impressions: Service Date/Time: Monday, October 03, 2016 15:13 - CONCLUSION: Limited portable Gastrografin small bowel follow through demonstrating normal motility and no evidence of obstruction. Luis Heck MD Chest CT 10/01/16 Signed Impressions: Service Date/Time: Saturday, October 01, 2016 23:41 - CONCLUSION: 1. Patchy parenchymal infiltrate in the right lung base characteristic of pneumonia. This could be aspiration pneumonia.. Hernando Villafuerte MD Abdomen/Pelvis CT 10/01/16 Signed Impressions: Service Date/Time: Saturday, October 01, 2016 23:41 - CONCLUSION: 1. Right lower lung pneumonia. 2. 6.2 cm benign-appearing right renal cyst 3. Mild dilatation of the biliary tree. Most likely reservoir effect secondary to the cholecystectomy. Recommend correlation with liver laboratory values. 4. The Klein catheter tip is within the penile urethra. The balloon is partially deflated. Recommend advancing the Klein catheter to reposition in the urinary bladder. 5. Several nonspecific lucent/lytic lesions are seen throughout the bony structures. This could be related to prominent osteopenia however, cannot exclude bony metastatic disease. If clinically indicated, a whole-body PET CT could be performed for further evaluation on a nonemergent outpatient basis. Hernando Villafuerte MD Abdomen X-Ray 09/30/16 Signed Impressions: Service Date/Time: Friday, September 30, 2016 15:12 - CONCLUSION: Satisfactory location to the jejunostomy tube. Ronen Broussard MD Chest X-Ray 09/27/16 Signed Impressions: Service Date/Time: Tuesday, September 27, 2016 13:55 - CONCLUSION: No obvious infiltrate. The right base is partially obscured by the contracted left upper extremity. Chet De Leon MD Physical Exam HEENT: Normocephalic; atraumatic; large amount of oral secretions CHEST: Course breath sounds, tracheostomy. CARDIAC: RRR ABDOMEN: Soft, nondistended, nontender; no hepatosplenomegaly; bowel sounds are present in all four quadrants. G/J tube. EXTREMITIES: Multiple contractures. INTER COM INSTALLER: Nonverbal (ConstanzaLili Spring MARY) Assessment and Plan Plan ASSESSMENT: - Dysphagia with recurrent aspiration. Pt with Advanced Parkinson's and Dementia, with dysphagia. He has G/J tube and was originally brought to ER for malfunctioning tube. S/P G/J tube replacement (09/22/16). However, since this has been replaced and he has been having issues with aspiration. ST is following, S/P modified catalan blue dye test- at which time patient had return of blue dye via trach suctioned and abnormal bolus holding requiring mouth to be suctioned as well. GI was consulted for ? transition to bolus feedings to minimize risk of aspiration and other recommendations. Bolus feedings are not recommended via J tube. Placement of G/J tube was confirmed with gastrografin through the J portion of the G/J tube (09/30/16). Abdomen/Pelvis CT (10/01/16)----> 1. Right lower lung pneumonia. 2. 6.2 cm benign-appearing right renal cyst 3. Mild dilatation of the biliary tree. Most likely reservoir effect secondary to the cholecystectomy. Recommend correlation with liver laboratory values. 4. The Klein catheter tip is within the penile urethra. The balloon is partially deflated. Recommend advancing the Klein catheter to reposition in the urinary bladder. 5. Several nonspecific lucent/lytic lesions are seen throughout the bony structures. This could be related to prominent osteopenia however, cannot exclude bony metastatic disease. If clinically indicated, a whole-body PET CT could be performed for further evaluation on a nonemergent outpatient basis. G tube was placed to gravity. He has not had any TF suctioned from tracheostomy today per nurse, but she does report that TF has been off because the J tube is clogged. IR has been notified and they will be calling to further assess. Levsin and Ditropan on hold, as both may contribute to delayed gastric emptying. Small Bowel X-Ray ()--> Limited portable Gastrografin small bowel follow through demonstrating normal motility and no evidence of obstruction. Per ST, dye can no longer be used in TF, as there is no hospital policy for this. - Diarrhea. Improved. CDiff negative. Needs I/O of stool output. PLAN: - TF as recommended by vacuum technician - Cont. PPI - Cont. EES via G tube (IV is not available at this time) - Levsin/Ditropan on hold, as they may be contributing to delayed gastric emptying - G tube to gravity while receiving continuous feedings - Do not recommend bolus feedings - Suction oral secretions q2h - Supportive care - Further recommendations to follow based on results of above - Pt seen and examined by Dr. Page and myself and this note is written on his behalf (Lili Apodaca) Physician Comments Seen and examined Agree with above Continue with current supportive care Monitor labs (Chester Page MD) Lili Apodaca Oct 05, 2016 12:28 Chester Page MD Oct 05, 2016 22:56
[2016-10-05] MEDS: LATANOPROST 0.005% OPHT SOLN 2.5 ML BTL EACH EYE SCH (21:00)
[2016-10-06] VITALS (9 sets, daily range): BP systolic 104–158; BP diastolic 62–79; PULSE 81–90; RESP 18–20; TEMP 96.4–98.8; O2SAT 95–100
[2016-10-06] MEDS: PRAMIPEXOLE DIHYDROCHLORIDE 0.25 MG TAB PO SCH ×4 (00:32→18:47)
[2016-10-06] MEDS: CARBIDOPA/LEVODOPA 25 MG/100 MG TAB PO SCH ×5 (00:32→23:54)
[2016-10-06] MEDS: SODIUM CHLORIDE 5% OPHT SOLN 15 ML BTL EACH EYE SCH ×5 (00:37→23:52)
[2016-10-06] MEDS: PIPERACIL-TAZO 4.5 GM PREMIX 100 ML IV SCH ×4 (05:16→23:47)
[2016-10-06] MEDS: NYSTATIN 100,000 U/GM PWD 15 GM BTL TOPICAL SCH ×3 (06:00→23:53)
[2016-10-06] MEDS: ERYTHROMYCIN ETHYLSUCCINATE 200 MG/5 ML SUSP 100 ML BOTTLE G-TUBE SCH ×3 (06:00→23:51)
[2016-10-06] MEDS: LEVOTHYROXINE SODIUM 112 MCG TAB PO SCH (06:41)
[2016-10-06] MEDS: FAMOTIDINE 20 MG TAB PO SCH ×2 (07:42→23:50)
[2016-10-06] MEDS: SODIUM CHLORIDE 0.9% FLUSH 10 ML FLUSH IV FLUSH SCH ×2 (07:59→23:50)
[2016-10-06] MEDS: RESP: BUDESONIDE 0.5 MG/2 ML NEB NEB SCH ×2 (08:52→19:48)
[2016-10-06] MEDS: DOCUSATE SODIUM 50 MG/SENNA 8.6 MG TAB G-TUBE SCH (09:00)
[2016-10-06 12:20] LABS: BICARBONATE 33.9 MEQ/L (21.0-32.0); MAGNESIUM 1.8 MG/DL (1.5-2.5)
[2016-10-06 12:25] LABS: POTASSIUM 2.5 MEQ/L (3.5-5.1)
--- NOTE | 2016-10-06 12:51 | HHI.PR ---
Subjective Remarks Seen and examined, sitting in the bed, caregiver at the bedside J-tube is suctioning to gravity, tube feed at rate of 10 Potassium is low 2.5 with low phosphorus and magnesium we'll replace that D/W caregiver Objective Vitals Vital Signs Date Time Temp Pulse Resp B/P Pulse Ox O2 Delivery O2 Flow Rate FiO2 10/06/16 08:57 98 T-piece 28 10/06/16 08:54 98 T-piece 28 10/06/16 08:00 97.3 83 18 122/69 100 10/06/16 06:23 98.6 82 20 106/62 98 10/06/16 00:52 98.8 90 20 140/79 97 10/05/16 20:37 98.2 95 20 119/70 96 10/05/16 20:17 100 T-piece 28 10/05/16 16:00 98.1 96 20 171/90 100 I/O 10/05/16 10/05/16 10/05/16 10/06/16 10/06/16 10/06/16 07:00 15:00 23:00 07:00 15:00 23:00 Output Total 425 ml 600 ml 900 ml Balance -425 ml -600 ml -900 ml Output Urine Total 425 ml 600 ml 900 ml Result Diagram: 10/05/16 0635 10/06/16 1127 Objective Remarks - GENERAL: This is a frail,chronically ill 89 years old on T piece CARDIOVASCULAR: Regular rate and rhythm without murmurs, gallops, or rubs. RESPIRATORY: Decreased breath sounds. GASTROINTESTINAL: Abdomen soft, non-tender, nondistended. Normal active bowel sounds MUSCULOSKELETAL: Severe upper lower Extremities contractions without edema. NEURO: Nonverbal, closed eyes Procedures PEG replacement- 09/22 G NJ tube revision 10/04 Date of Insertion: Sep 22, 2016 A/P Assessment and Plan 09/30:D/W GI CAR FILLER recommended avoiding boluses in the J-tube, discussed with nurse, Kingsley catheter leaking recommended changing if needed 10/01: Continue current care with antibiotic or ID, monitor for any fever, monitor CBC, KCl by mouth to place low potassium, Vasotec as needed to cover for elevated pressure, monitor blood pressure Medications administered NG tube comes out of the ET tube per the nurse will discuss with GI 10/02: Continue current care, J-tube o'clock top discussed with GI will get IR to review, discussed with nurse 10/03: Patient went to IR for J-tube revision, continue current treatment GI following for possible continuing aspiration 10/04: J-tube revised by IR, start to feed per GI recommendation, discussed with the daughter over the phone 10/05: Discussed with the nurse and with the GI CAR FILLER WELL as the daughter, plan to examine the G-NJ tube to rule out aspiration by the GI 10/06: Continue monitoring G and J-tube functioning, severe hypokalemia 2.5, will be replaced iv, hypophosphatemia and-hypomagnesemia also will be replaced, repeat BMP mag phosphatemia A/P: 89 yers old male- advanced Parkinson's disease, S/P CVA baseline- is total care , not interactive- admitted for MRSA Sepsis- on Vancomycin PNA-- Aspiration- sputum- Pseudomonas E coli UTI- on chronic kingsley - changed 09/22 Increase Levsin suctioning q 4 schedule and q 2 prn. Levsin SL On Vancomycin. and Zosyn Dr. Odell ff d/w daughter that - patient can also aspirate from his own secretions GT malfunction-PEG changed 09/22 - GIff for recommendations -r no bolus TF to decrease risk of aspiration G-J tube revised by IR 10/04, restarted , ff by GI tracheostomy in place- capped. duonebs q 4. suctioning prn Advanced Parkinson's - extremities- flexion contractures. continue meds stage 2 decubitus ulcer -wound care team ff History of hypothyroidism - continue on synthroid pericolace once daily Laura Brumfield MD Oct 06, 2016 12:51
[2016-10-06] MEDS: MAGNESIUM SULFATE 1 GM PREMIX 100 ML IV SCH ×2 (13:12→16:18)
[2016-10-06] MEDS: POTASSIUM CHLOR 20 MEQ PREMIX 100 ML IV SCH ×2 (14:21→18:45)
[2016-10-06] MEDS: POTASSIUM PHOSPHATE/SODIUM PHOSPHATE 250 MG TAB PO SCH ×3 (15:28→23:52)
--- NOTE | 2016-10-06 16:09 | HHI.IDPN ---
Note Infectious Disease Note Patient has eyes open. looks comfortable. Moderate carrasco secretions. Trach collar. Afebrile. 09/27 - Copious frothy tube feed colored secretions coming from ETT. PAST MEDICAL HISTORY: 1. Advanced Parkinson's disease. 2. Alzheimer's disease. 3. Hypertension. 4. Orthostatic hypotension. 5. History of endocarditis. 6. Prostate cancer. 7. Prostatectomy. 8. Cholecystectomy. 9. Appendectomy. 10. Tonsillectomy. 11. Chronic trach. 12. G-tube placement. ALLERGIES: 1. CELEXA. 2. ATIVAN. 3. ARICEPT. ANTIBIOTICS: 1. Zosyn. SOCIAL HISTORY: The patient is cared for at home by caregivers. No tobacco, alcohol or illicit drugs. REVIEW OF SYSTEMS: Unable to obtain. OBJECTIVE: Vital Signs Date Time Temp Pulse Resp B/P Pulse Ox O2 Delivery O2 Flow Rate FiO2 10/06/16 12:00 97.5 83 20 104/63 96 10/06/16 08:57 98 T-piece 28 10/06/16 08:54 98 T-piece 28 10/06/16 08:00 97.3 83 18 122/69 100 10/06/16 06:23 98.6 82 20 106/62 98 10/06/16 00:52 98.8 90 20 140/79 97 10/05/16 20:37 98.2 95 20 119/70 96 10/05/16 20:17 100 T-piece 28 10/05/16 16:00 98.1 96 20 171/90 100 10/05/16 10/05/16 10/06/16 15:00 23:00 07:00 Output Total 600 ml 900 ml Balance -600 ml -900 ml Output Urine Total 600 ml 900 ml Microbiology Date/Time Procedure Status Source Growth 09/25/16 22:45 Gram Stain - Final Complete Sputum Endotracheal 09/25/16 22:45 Sputum Culture - Final Complete Pseudomonas Aeruginosa Microbiology Date/Time Procedure Status Source Growth 09/22/16 14:00 Aerobic Blood Culture - Final Complete Blood Peripheral S. Aureus Mrsa 09/22/16 14:00 Anaerobic Blood Culture - Final Complete Staph Sp Coagulase Negative 09/22/16 14:00 Urine Culture - Final Complete Urine Catheterized Urine Escherichia Coli 09/22/16 14:05 Aerobic Blood Culture - Preliminary Resulted Blood Peripheral S. Aureus Mrsa Staph Sp Coagulase Negative 09/22/16 14:05 Anaerobic Blood Culture - Preliminary Resulted S. Aureus Mrsa Staph Sp Coagulase Negative 09/25/16 07:59 Aerobic Blood Culture Received Blood Peripheral Pending 09/25/16 07:59 Anaerobic Blood Culture Received Blood Peripheral Pending 09/25/16 08:05 Aerobic Blood Culture Received Blood Peripheral Pending 09/25/16 08:05 Anaerobic Blood Culture Received Blood Peripheral Pending IMAGING: Chest X-Ray 09/27/16 0000 Signed Impressions: Service Date/Time: Tuesday, September 27, 2016 13:55 - CONCLUSION: No obvious infiltrate. The right base is partially obscured by the contracted left upper extremity. Chet De Leon MD Tube Change 09/22/16 0000 Signed Impressions: Service Date/Time: Thursday, September 22, 2016 17:44 - CONCLUSION: Uncomplicated gastrojejunostomy tube exchange as above. Narayan Lake MD Chest X-Ray 09/22/16 0000 Signed Impressions: Service Date/Time: Thursday, September 22, 2016 14:17 - CONCLUSION: Underinflated examination with likely atelectasis at the lung bases. Technique results in less than optimal evaluation of the lung parenchyma but no acute finding is identified. Jay Choudhury MD Abdomen X-Ray 09/22/16 0000 Signed Impressions: Service Date/Time: Thursday, September 22, 2016 14:20 - CONCLUSION: Contrast within the stomach and proximal small intestinal loop. Mason Clayton MD PHYSICAL EXAMINATION: GENERAL: No acute distress. HEENT: No icterus. No conjunctival erythema. Oropharynx: moist mucosa. NECK: The neck is supple. LUNGS: Decreased BS and slight rhonchi. HEART: Regular rate and rhythm. No audible murmurs or rubs or gallops. ABDOMEN: Bowel sounds present, soft, nontender. EXTREMITIES: No clubbing or cyanosis or edema. The patient has contractures of the extremities and muscle wasting apparent. NEUROLOGIC: Unable to fully assess. SKIN: No diffuse rash. PSYCHIATRIC: Unable to fully assess. IMPRESSION: 1. Aspiration. Pseudomonas pneumonia. Recent active aspiration from tube feeds on 09/27. 2. Bacteremia due to MRSA. Improved. 3. Urinary tract infection due to E-coli. 4. PEG-tube malfunction. PEG replaced x 2. Looks to be improving. RECOMMENDATIONS: 1. Continue PIP/tazobactam. 2. Repeat CXR on Sunday 10/08. 3. Probably will stop antibiotic on Sunday. Please call ID if input needed on weekend. Lc Odell MD Oct 06, 2016 16:09
[2016-10-06] MEDS: LATANOPROST 0.005% OPHT SOLN 2.5 ML BTL EACH EYE SCH (23:49)
--- NOTE | 2016-10-06 23:55 | HHI.GIFU ---
Subjective Remarks Appears to be comfortable in bed in no acute distress Objective Vitals I&O Vital Signs Date Time Temp Pulse Resp B/P Pulse Ox O2 Delivery O2 Flow Rate FiO2 10/06/16 20:00 96.4 81 18 158/79 95 10/06/16 19:48 100 T-piece 6.00 28 10/06/16 19:48 100 T-piece 6.00 28 10/06/16 17:13 98.3 87 20 114/72 100 10/06/16 12:00 97.5 83 20 104/63 96 10/06/16 08:57 98 T-piece 28 10/06/16 08:54 98 T-piece 28 10/06/16 08:00 97.3 83 18 122/69 100 10/06/16 06:23 98.6 82 20 106/62 98 10/06/16 00:52 98.8 90 20 140/79 97 I/O 10/05/16 10/05/16 10/05/16 10/06/16 10/06/16 10/06/16 07:00 15:00 23:00 07:00 15:00 23:00 Output Total 425 ml 600 ml 900 ml 200 ml Balance -425 ml -600 ml -900 ml -200 ml Output Urine Total 425 ml 600 ml 900 ml 200 ml Laboratory Laboratory Tests Test 10/06/16 11:27 Sodium Level 140 Potassium Level 2.5 Chloride Level 99 Carbon Dioxide Level 33.9 Anion Gap 7 Blood Urea Nitrogen 3 Creatinine 0.51 Estimat Glomerular Filtration 185 Rate Random Glucose 104 Calcium Level 8.4 Phosphorus Level 1.3 Magnesium Level 1.8 Physical Exam HEENT: Normocephalic; atraumatic; large amount of oral secretions CHEST: Course breath sounds, tracheostomy. CARDIAC: RRR ABDOMEN: Soft, nondistended, nontender; no hepatosplenomegaly; bowel sounds are present in all four quadrants. G/J tube. EXTREMITIES: Multiple contractures. ASSOCIATE SALES REPRESENTATIVE: Nonverbal Assessment and Plan Plan ASSESSMENT: - Dysphagia with recurrent aspiration. Pt with Advanced Parkinson's and Dementia, with dysphagia. He has G/J tube and was originally brought to ER for malfunctioning tube. S/P G/J tube replacement (09/22/16). However, since this has been replaced and he has been having issues with aspiration. ST is following, S/P modified catalan blue dye test- at which time patient had return of blue dye via trach suctioned and abnormal bolus holding requiring mouth to be suctioned as well. GI was consulted for ? transition to bolus feedings to minimize risk of aspiration and other recommendations. Bolus feedings are not recommended via J tube. Placement of G/J tube was confirmed with gastrografin through the J portion of the G/J tube (09/30/16). Abdomen/Pelvis CT (10/01/16)----> 1. Right lower lung pneumonia. 2. 6.2 cm benign-appearing right renal cyst 3. Mild dilatation of the biliary tree. Most likely reservoir effect secondary to the cholecystectomy. Recommend correlation with liver laboratory values. 4. The Klein catheter tip is within the penile urethra. The balloon is partially deflated. Recommend advancing the Klein catheter to reposition in the urinary bladder. 5. Several nonspecific lucent/lytic lesions are seen throughout the bony structures. This could be related to prominent osteopenia however, cannot exclude bony metastatic disease. If clinically indicated, a whole-body PET CT could be performed for further evaluation on a nonemergent outpatient basis. G tube was placed to gravity. He has not had any TF suctioned from tracheostomy today per nurse, but she does report that TF has been off because the J tube is clogged. IR has been notified and they will be calling to further assess. Levsin and Ditropan on hold, as both may contribute to delayed gastric emptying. Small Bowel X-Ray ()--> Limited portable Gastrografin small bowel follow through demonstrating normal motility and no evidence of obstruction. Per ST, dye can no longer be used in TF, as there is no hospital policy for this. - Diarrhea. Improved. CDiff negative. Needs I/O of stool output. PLAN: -G J-tube has been repositioned and at this point the patient appears to be tolerating tube feeds without any obvious aspiration - Cont. PPI - Cont. EES via G tube (IV is not available at this time) - Levsin/Ditropan on hold, as they may be contributing to delayed gastric emptying - G tube to gravity while receiving continuous feedings - Do not recommend bolus feedings - Suction oral secretions q2h - Supportive care - Further recommendations to follow based on results of above -Not much to add at this point from a GI perspective we will sign off Camilo,Chester El-sayed MD Oct 06, 2016 23:55
[2016-10-07] VITALS (8 sets, daily range): BP systolic 106–159; BP diastolic 56–80; PULSE 74–90; RESP 16–21; TEMP 96.4–98.5; O2SAT 92–100
[2016-10-07] MEDS: PRAMIPEXOLE DIHYDROCHLORIDE 0.25 MG TAB PO SCH ×4 (01:20→16:26)
[2016-10-07] MEDS: POTASSIUM PHOSPHATE/SODIUM PHOSPHATE 250 MG TAB PO SCH ×4 (05:50→23:55)
[2016-10-07] MEDS: CARBIDOPA/LEVODOPA 25 MG/100 MG TAB PO SCH ×4 (05:50→23:55)
[2016-10-07] MEDS: ERYTHROMYCIN ETHYLSUCCINATE 200 MG/5 ML SUSP 100 ML BOTTLE G-TUBE SCH ×3 (05:50→20:54)
[2016-10-07] MEDS: LEVOTHYROXINE SODIUM 112 MCG TAB PO SCH (05:50)
[2016-10-07] MEDS: PIPERACIL-TAZO 4.5 GM PREMIX 100 ML IV SCH ×4 (05:51→23:00)
[2016-10-07] MEDS: SODIUM CHLORIDE 5% OPHT SOLN 15 ML BTL EACH EYE SCH ×4 (05:54→23:55)
[2016-10-07] MEDS: NYSTATIN 100,000 U/GM PWD 15 GM BTL TOPICAL SCH ×3 (06:26→20:58)
[2016-10-07] MEDS: RESP: BUDESONIDE 0.5 MG/2 ML NEB NEB SCH ×2 (07:46→20:32)
[2016-10-07] MEDS: DOCUSATE SODIUM 50 MG/SENNA 8.6 MG TAB G-TUBE SCH (08:27)
[2016-10-07] MEDS: FAMOTIDINE 20 MG TAB PO SCH ×2 (08:29→20:54)
[2016-10-07] MEDS: SODIUM CHLORIDE 0.9% FLUSH 10 ML FLUSH IV FLUSH SCH ×2 (08:30→20:58)
[2016-10-07 12:21] LABS: BASOPHIL % 0.4 % (0.0-2.0); EOSINOPHIL # 0.9 TH/MM3 (0-0.4); EOSINOPHIL % 13.9 % (0.0-4.0); HEMATOCRIT 35.3 % (39.0-51.0); HEMO FLAGS DIFF FINAL; LYMPH % 15.7 % (9.0-44.0); MEAN CORPUSCULAR HEMOGLOBIN 25.6 PG (27.0-34.0); MEAN CORPUSCULAR HGB CONC 31.2 % (32.0-36.0); PLATELET COUNT 254 TH/MM3 (150-450); RED CELL DISTRIBUTION WIDTH 19.2 % (11.6-17.2); WHITE BLOOD COUNT 6.5 TH/MM3 (4.0-11.0)
[2016-10-07 13:00] LABS: BICARBONATE 33.9 MEQ/L (21.0-32.0); MAGNESIUM 2.2 MG/DL (1.5-2.5)
[2016-10-07 13:08] LABS: POTASSIUM 2.6 MEQ/L (3.5-5.1)
--- NOTE | 2016-10-07 15:09 | HHI.PR ---
Subjective Remarks Resting in bed comfortably in no acute issue today G and J-tube working well Potassium came back 2.6 will repeat to verify and rule out lab error Discussed with caregiver at bedside Objective Vitals Vital Signs Date Time Temp Pulse Resp B/P Pulse Ox O2 Delivery O2 Flow Rate FiO2 10/07/16 12:00 96.8 74 21 130/73 99 10/07/16 08:00 97.4 76 19 106/58 100 10/07/16 07:46 99 T-piece 5.00 28 10/07/16 07:46 99 T-piece 6.00 28 10/07/16 04:00 98.5 74 18 159/80 100 10/07/16 00:00 96.4 90 16 115/56 92 10/06/16 20:00 96.4 81 18 158/79 95 10/06/16 19:48 100 T-piece 6.00 28 10/06/16 19:48 100 T-piece 6.00 28 10/06/16 17:13 98.3 87 20 114/72 100 I/O 10/06/16 10/06/16 10/06/16 10/07/16 10/07/16 10/07/16 07:00 15:00 23:00 07:00 15:00 23:00 Output Total 900 ml 200 ml 1000 ml Balance -900 ml -200 ml -1000 ml Output Urine Total 900 ml 200 ml 1000 ml Result Diagram: 10/07/16 1150 10/07/16 1150 Objective Remarks - GENERAL: This is a frail,chronically ill 89 years old on T piece CARDIOVASCULAR: Regular rate and rhythm without murmurs, gallops, or rubs. RESPIRATORY: Decreased breath sounds. GASTROINTESTINAL: Abdomen soft, non-tender, nondistended. Normal active bowel sounds MUSCULOSKELETAL: Severe upper lower Extremities contractions without edema. NEURO: Nonverbal, closed eyes Procedures PEG replacement- 09/22 G NJ tube revision 10/04 Date of Insertion: Sep 22, 2016 A/P Assessment and Plan 09/30:D/W GI REPAIRER recommended avoiding boluses in the J-tube, discussed with nurse, Kingsley catheter leaking recommended changing if needed 10/01: Continue current care with antibiotic or ID, monitor for any fever, monitor CBC, KCl by mouth to place low potassium, Vasotec as needed to cover for elevated pressure, monitor blood pressure Medications administered NG tube comes out of the ET tube per the nurse will discuss with GI 10/02: Continue current care, J-tube o'clock top discussed with GI will get IR to review, discussed with nurse 10/03: Patient went to IR for J-tube revision, continue current treatment GI following for possible continuing aspiration 10/04: J-tube revised by IR, start to feed per GI recommendation, discussed with the daughter over the phone 10/05: Discussed with the nurse and with the GI REPAIRER WELL as the daughter, plan to examine the G-NJ tube to rule out aspiration by the GI 10/06: Continue monitoring G and J-tube functioning, severe hypokalemia 2.5, will be replaced iv, hypophosphatemia and-hypomagnesemia also will be replaced, repeat BMP mag phosphatemia 10/07: G and J-tube functioning well today, hypokalemia 2.6 we will repeat to verify and replace iv if confirmed low, ID recommend continue Zosyn chest x-ray on Sunday and possibly DC iv antibiotic on Sunday A/P: 89 yers old male- advanced Parkinson's disease, S/P CVA baseline- is total care , not interactive- admitted for MRSA Sepsis- on Vancomycin PNA-- Aspiration- sputum- Pseudomonas E coli UTI- on chronic kingsley - changed 09/22 Increase Levsin suctioning q 4 schedule and q 2 prn. Levsin SL On Vancomycin. and Zosyn Dr. Odell ff d/w daughter that - patient can also aspirate from his own secretions GT malfunction-PEG changed 09/22 - GIff for recommendations -r no bolus TF to decrease risk of aspiration G-J tube revised by IR 10/04, restarted , ff by GI tracheostomy in place- capped. duonebs q 4. suctioning prn Advanced Parkinson's - extremities- flexion contractures. continue meds stage 2 decubitus ulcer -wound care team ff History of hypothyroidism - continue on synthroid pericolace once daily Laura Brumfield MD Oct 07, 2016 15:09
[2016-10-07] MEDS: POTASSIUM CHLOR 20 MEQ PREMIX 100 ML IV SCH (19:11)
[2016-10-07] MEDS: LATANOPROST 0.005% OPHT SOLN 2.5 ML BTL EACH EYE SCH (20:58)
[2016-10-08] VITALS (8 sets, daily range): BP systolic 118–165; BP diastolic 69–86; PULSE 78–84; RESP 19–24; TEMP 96–98.7; O2SAT 97–100
[2016-10-08] MEDS: PRAMIPEXOLE DIHYDROCHLORIDE 0.25 MG TAB PO SCH ×4 (00:27→16:44)
[2016-10-08] MEDS: POTASSIUM CHLOR 20 MEQ PREMIX 100 ML IV SCH ×3 (00:29→11:53)
[2016-10-08] MEDS: ERYTHROMYCIN ETHYLSUCCINATE 200 MG/5 ML SUSP 100 ML BOTTLE G-TUBE SCH ×3 (05:40→22:33)
[2016-10-08] MEDS: CARBIDOPA/LEVODOPA 25 MG/100 MG TAB PO SCH ×4 (05:40→22:33)
[2016-10-08] MEDS: SODIUM CHLORIDE 5% OPHT SOLN 15 ML BTL EACH EYE SCH ×3 (05:40→16:45)
[2016-10-08] MEDS: POTASSIUM PHOSPHATE/SODIUM PHOSPHATE 250 MG TAB PO SCH ×2 (05:40→11:54)
[2016-10-08] MEDS: LEVOTHYROXINE SODIUM 112 MCG TAB PO SCH (05:40)
[2016-10-08] MEDS: PIPERACIL-TAZO 4.5 GM PREMIX 100 ML IV SCH ×4 (05:41→22:58)
[2016-10-08] MEDS: NYSTATIN 100,000 U/GM PWD 15 GM BTL TOPICAL SCH ×3 (05:41→22:35)
[2016-10-08 07:56] LABS: BICARBONATE 34.7 MEQ/L (21.0-32.0)
[2016-10-08 08:00] LABS: POTASSIUM 2.8 MEQ/L (3.5-5.1)
--- NOTE | 2016-10-08 08:36 | RADRPT ---
EXAM DATE/TIME: 10/08/2016 07:51 [facility] COMPARISON: CHEST SINGLE AP, September 22, 2016, 14:17. CHEST SINGLE AP, September 27, 2016, 13:55. INDICATIONS : Evaluate for pneumonia. MEDICAL HISTORY : None. SURGICAL HISTORY : None. ENCOUNTER: Initial ACUITY: 1 day PAIN SCORE: Non-responsive. LOCATION: Bilateral chest FINDINGS: Single AP view of the chest. Mild patchy opacity in the right lung base. The lungs are otherwise catie r. Cardiomediastinal silhouette within normal limits. No evidence of pleural effusion or pneumothorax . CONCLUSION: Mild right lung base pulmonary parenchymal opacity indicating atelectasis versus mild con solidation. Ap Vera MD on October 08, 2016 at 8:33 Board Certified Radiologist. This report was verified electronically.
[2016-10-08] MEDS: DOCUSATE SODIUM 50 MG/SENNA 8.6 MG TAB G-TUBE SCH (08:45)
[2016-10-08] MEDS: SODIUM CHLORIDE 0.9% FLUSH 10 ML FLUSH IV FLUSH SCH ×2 (08:47→22:34)
[2016-10-08] MEDS: FAMOTIDINE 20 MG TAB PO SCH ×2 (08:48→22:33)
[2016-10-08] MEDS: RESP: BUDESONIDE 0.5 MG/2 ML NEB NEB SCH ×2 (08:53→19:20)
--- NOTE | 2016-10-08 15:07 | HHI.PR ---
Subjective Remarks No acute issue, G and J-tube working well Chest x-ray no increase in pneumonia, mostly stopping antibiotic tomorrow we'll plan for transfer to rehabilitation Objective Vitals Vital Signs Date Time Temp Pulse Resp B/P Pulse Ox O2 Delivery O2 Flow Rate FiO2 10/08/16 12:00 96.0 81 20 133/73 100 10/08/16 08:53 98 T-piece 28 10/08/16 08:53 98 T-piece 28 10/08/16 08:00 97.9 83 19 125/73 100 10/08/16 05:00 98.7 80 22 165/78 99 10/08/16 01:21 97.2 84 20 128/86 97 10/07/16 23:15 98.0 77 18 132/70 98 10/07/16 20:32 100 T-piece 6.00 28 10/07/16 20:32 100 T-piece 6.00 28 10/07/16 16:00 96.6 80 19 111/62 100 I/O 10/07/16 10/07/16 10/07/16 10/08/16 10/08/16 10/08/16 07:00 15:00 23:00 07:00 15:00 23:00 Output Total 1000 ml 3100 ml 950 ml Balance -1000 ml -3100 ml -950 ml Output Urine Total 1000 ml 1550 ml Stool Total 1550 ml Drainage Total 950 ml Result Diagram: 10/07/16 1150 10/08/16 0704 Objective Remarks - GENERAL: This is a frail,chronically ill 89 years old on T piece CARDIOVASCULAR: Regular rate and rhythm without murmurs, gallops, or rubs. RESPIRATORY: Decreased breath sounds. GASTROINTESTINAL: Abdomen soft, non-tender, nondistended. Normal active bowel sounds MUSCULOSKELETAL: Severe upper lower Extremities contractions without edema. NEURO: Nonverbal, closed eyes Procedures PEG replacement- 09/22 G NJ tube revision 10/04 Date of Insertion: Sep 22, 2016 A/P Assessment and Plan 09/30:D/W GI FLIGHT OPERATION COORDINATOR recommended avoiding boluses in the J-tube, discussed with nurse, Kingsley catheter leaking recommended changing if needed 10/01: Continue current care with antibiotic or ID, monitor for any fever, monitor CBC, KCl by mouth to place low potassium, Vasotec as needed to cover for elevated pressure, monitor blood pressure Medications administered NG tube comes out of the ET tube per the nurse will discuss with GI 10/02: Continue current care, J-tube o'clock top discussed with GI will get IR to review, discussed with nurse 10/03: Patient went to IR for J-tube revision, continue current treatment GI following for possible continuing aspiration 10/04: J-tube revised by IR, start to feed per GI recommendation, discussed with the daughter over the phone 10/05: Discussed with the nurse and with the GI FLIGHT OPERATION COORDINATOR WELL as the daughter, plan to examine the G-NJ tube to rule out aspiration by the GI 10/06: Continue monitoring G and J-tube functioning, severe hypokalemia 2.5, will be replaced iv, hypophosphatemia and-hypomagnesemia also will be replaced, repeat BMP mag phosphatemia 10/07: G and J-tube functioning well today, hypokalemia 2.6 we will repeat to verify and replace iv if confirmed low, ID recommend continue Zosyn chest x-ray on Sunday and possibly DC iv antibiotic on Sunday 10/08: G and J tube working well, persistent hypokalemia,? diarrhea will check C. difficile, by mouth for MEQ KCl today A/P: 89 yers old male- advanced Parkinson's disease, S/P CVA baseline- is total care , not interactive- admitted for MRSA Sepsis- on Vancomycin PNA-- Aspiration- sputum- Pseudomonas E coli UTI- on chronic kingsley - changed 09/22 Increase Levsin suctioning q 4 schedule and q 2 prn. Levsin SL On Vancomycin. and Zosyn Dr. Odell ff d/w daughter that - patient can also aspirate from his own secretions GT malfunction-PEG changed 09/22 - GIff for recommendations -r no bolus TF to decrease risk of aspiration G-J tube revised by IR 10/04, restarted , ff by GI tracheostomy in place- capped. duonebs q 4. suctioning prn Advanced Parkinson's - extremities- flexion contractures. continue meds stage 2 decubitus ulcer -wound care team ff History of hypothyroidism - continue on synthroid pericolace once daily Laura Brumfield MD Oct 08, 2016 15:07
[2016-10-08] MEDS: LATANOPROST 0.005% OPHT SOLN 2.5 ML BTL EACH EYE SCH (22:34)
[2016-10-09] VITALS (11 sets, daily range): BP systolic 89–168; BP diastolic 41–83; PULSE 73–85; RESP 18–23; TEMP 96.1–97.8; O2SAT 98–100
[2016-10-09] MEDS: SODIUM CHLORIDE 5% OPHT SOLN 15 ML BTL EACH EYE SCH ×4 (00:11→17:34)
[2016-10-09] MEDS: PRAMIPEXOLE DIHYDROCHLORIDE 0.25 MG TAB PO SCH ×5 (00:11→23:56)
[2016-10-09] MEDS: PIPERACIL-TAZO 4.5 GM PREMIX 100 ML IV SCH (05:08)
[2016-10-09] MEDS: ERYTHROMYCIN ETHYLSUCCINATE 200 MG/5 ML SUSP 100 ML BOTTLE G-TUBE SCH ×3 (05:09→22:00)
[2016-10-09] MEDS: CARBIDOPA/LEVODOPA 25 MG/100 MG TAB PO SCH ×4 (05:10→23:56)
[2016-10-09] MEDS: LEVOTHYROXINE SODIUM 112 MCG TAB PO SCH (05:10)
[2016-10-09] MEDS: NYSTATIN 100,000 U/GM PWD 15 GM BTL TOPICAL SCH ×3 (05:10→23:55)
[2016-10-09] MEDS: RESP: BUDESONIDE 0.5 MG/2 ML NEB NEB SCH ×2 (08:28→20:36)
[2016-10-09] MEDS: DOCUSATE SODIUM 50 MG/SENNA 8.6 MG TAB G-TUBE SCH ×2 (09:00→09:33)
[2016-10-09] MEDS: FAMOTIDINE 20 MG TAB PO SCH ×2 (09:33→23:56)
[2016-10-09] MEDS: SODIUM CHLORIDE 0.9% FLUSH 10 ML FLUSH IV FLUSH SCH ×2 (09:33→23:56)
[2016-10-09 10:18] LABS: AUTOMATED NEUTROPHIL # 4.8 TH/MM3 (1.8-7.7); BASOPHIL % 0.5 % (0.0-2.0); EOSINOPHIL # 1.2 TH/MM3 (0-0.4); EOSINOPHIL % 14.6 % (0.0-4.0); HEMATOCRIT 33.4 % (39.0-51.0); HEMO FLAGS DIFF FINAL; LYMPH % 17.8 % (9.0-44.0); LYMPHOCYTE # 1.5 TH/MM3 (1.0-4.8); MEAN CELL VOLUME 82.2 FL (80.0-100.0); MEAN CORPUSCULAR HEMOGLOBIN 26.5 PG (27.0-34.0); MEAN CORPUSCULAR HGB CONC 32.2 % (32.0-36.0); MONO % 8.5 % (0.0-8.0); NEUT % 58.6 % (16.0-70.0); PLATELET COUNT 226 TH/MM3 (150-450); RED BLOOD COUNT 4.07 MIL/MM3 (4.50-5.90); RED CELL DISTRIBUTION WIDTH 19.3 % (11.6-17.2); WHITE BLOOD COUNT 8.2 TH/MM3 (4.0-11.0)
[2016-10-09 10:25] LABS: BICARBONATE 28.2 MEQ/L (21.0-32.0); POTASSIUM 3.4 MEQ/L (3.5-5.1)
--- NOTE | 2016-10-09 12:30 | HHI.IDPN ---
Note Infectious Disease Note Patient has eyes open. No distress. Trach collar. Afebrile. Has rectal tube in place. PAST MEDICAL HISTORY: 1. Advanced Parkinson's disease. 2. Alzheimer's disease. 3. Hypertension. 4. Orthostatic hypotension. 5. History of endocarditis. 6. Prostate cancer. 7. Prostatectomy. 8. Cholecystectomy. 9. Appendectomy. 10. Tonsillectomy. 11. Chronic trach. 12. G-tube placement. ALLERGIES: 1. CELEXA. 2. ATIVAN. 3. ARICEPT. ANTIBIOTICS: 1. Zosyn. SOCIAL HISTORY: The patient is cared for at home by caregivers. No tobacco, alcohol or illicit drugs. REVIEW OF SYSTEMS: Unable to obtain. OBJECTIVE: Vital Signs Date Time Temp Pulse Resp B/P Pulse Ox O2 Delivery O2 Flow Rate FiO2 10/09/16 08:30 100 T-piece 6.00 28 10/09/16 08:29 100 T-piece 6.00 28 10/09/16 08:15 97.8 79 20 136/74 100 10/09/16 05:46 96.9 80 20 117/63 99 10/09/16 01:30 77 118/73 98 10/09/16 00:55 74 106/62 10/09/16 00:00 96.8 79 18 89/41 100 10/08/16 20:28 96.5 78 24 118/69 98 10/08/16 18:52 100 T-piece 28 10/08/16 16:00 98.0 78 19 118/80 100 10/08/16 10/08/16 10/09/16 15:00 23:00 07:00 Output Total 1500 ml 1100 ml Balance -1500 ml -1100 ml Output Urine Total 550 ml 1100 ml Drainage Total 950 ml # Bowel Movements 0 Laboratory Tests Test 10/09/16 09:00 White Blood Count 8.2 TH/MM3 Red Blood Count 4.07 MIL/MM3 Hemoglobin 10.8 GM/DL Hematocrit 33.4 % Mean Corpuscular Volume 82.2 FL Mean Corpuscular Hemoglobin 26.5 PG Mean Corpuscular Hemoglobin 32.2 % Concent Red Cell Distribution Width 19.3 % Platelet Count 226 TH/MM3 Mean Platelet Volume 6.9 FL Neutrophils (%) (Auto) 58.6 % Lymphocytes (%) (Auto) 17.8 % Monocytes (%) (Auto) 8.5 % Eosinophils (%) (Auto) 14.6 % Basophils (%) (Auto) 0.5 % Neutrophils # (Auto) 4.8 TH/MM3 Lymphocytes # (Auto) 1.5 TH/MM3 Monocytes # (Auto) 0.7 TH/MM3 Eosinophils # (Auto) 1.2 TH/MM3 Basophils # (Auto) 0.0 TH/MM3 CBC Comment DIFF FINAL Differential Comment Laboratory Tests Test 10/07/16 10/08/16 10/08/16 10/09/16 16:40 07:04 19:36 09:00 Potassium Level 2.4 MEQ/L 2.8 MEQ/L 3.5 MEQ/L 3.4 MEQ/L Sodium Level 138 MEQ/L 136 MEQ/L Chloride Level 96 MEQ/L 97 MEQ/L Carbon Dioxide Level 34.7 MEQ/L 28.2 MEQ/L Anion Gap 7 MEQ/L 11 MEQ/L Blood Urea Nitrogen 7 MG/DL 7 MG/DL Creatinine 0.57 MG/DL 0.55 MG/DL Estimat Glomerular Filtration 163 ML/MIN 170 ML/MIN Rate Random Glucose 109 MG/DL 92 MG/DL Calcium Level 7.9 MG/DL 8.1 MG/DL Microbiology Date/Time Procedure Status Source Growth 09/25/16 22:45 Gram Stain - Final Complete Sputum Endotracheal 09/25/16 22:45 Sputum Culture - Final Complete Pseudomonas Aeruginosa Microbiology Date/Time Procedure Status Source Growth 09/22/16 14:00 Aerobic Blood Culture - Final Complete Blood Peripheral S. Aureus Mrsa 09/22/16 14:00 Anaerobic Blood Culture - Final Complete Staph Sp Coagulase Negative 09/22/16 14:00 Urine Culture - Final Complete Urine Catheterized Urine Escherichia Coli 09/22/16 14:05 Aerobic Blood Culture - Preliminary Resulted Blood Peripheral S. Aureus Mrsa Staph Sp Coagulase Negative 09/22/16 14:05 Anaerobic Blood Culture - Preliminary Resulted S. Aureus Mrsa Staph Sp Coagulase Negative 09/25/16 07:59 Aerobic Blood Culture Received Blood Peripheral Pending 09/25/16 07:59 Anaerobic Blood Culture Received Blood Peripheral Pending 09/25/16 08:05 Aerobic Blood Culture Received Blood Peripheral Pending 09/25/16 08:05 Anaerobic Blood Culture Received Blood Peripheral Pending IMAGING: Chest X-Ray 10/08/16 0800 Signed Impressions: Service Date/Time: Saturday, October 08, 2016 07:51 - CONCLUSION: Mild right lung base pulmonary parenchymal opacity indicating atelectasis versus mild consolidation. Ap Vera MD Chest X-Ray 09/27/16 0000 Signed Impressions: Service Date/Time: Tuesday, September 27, 2016 13:55 - CONCLUSION: No obvious infiltrate. The right base is partially obscured by the contracted left upper extremity. Chet De Leon MD Tube Change 09/22/16 0000 Signed Impressions: Service Date/Time: Thursday, September 22, 2016 17:44 - CONCLUSION: Uncomplicated gastrojejunostomy tube exchange as above. Narayan Lake MD Chest X-Ray 09/22/16 0000 Signed Impressions: Service Date/Time: Thursday, September 22, 2016 14:17 - CONCLUSION: Underinflated examination with likely atelectasis at the lung bases. Technique results in less than optimal evaluation of the lung parenchyma but no acute finding is identified. Jay Choudhury MD Abdomen X-Ray 09/22/16 0000 Signed Impressions: Service Date/Time: Thursday, September 22, 2016 14:20 - CONCLUSION: Contrast within the stomach and proximal small intestinal loop. Mason Clayton MD PHYSICAL EXAMINATION: GENERAL: No acute distress. HEENT: No icterus. Oropharynx: moist mucosa. NECK: The neck is supple. LUNGS: Basilar rhonchi. HEART: Regular rate and rhythm. No audible murmurs or rubs or gallops. ABDOMEN: Bowel sounds present, soft, nontender. EXTREMITIES: No clubbing or cyanosis or edema. The patient has contractures of the extremities and muscle wasting. NEUROLOGIC: Unable to fully assess. SKIN: No diffuse rash. PSYCHIATRIC: Unable to fully assess. IMPRESSION: 1. Aspiration. Pseudomonas pneumonia. Recent active aspiration from tube feeds on 09/27. improved. 2. Bacteremia due to MRSA. Improved. 3. Urinary tract infection due to E-coli. Treated. 4. PEG-tube malfunction. PEG replaced x 2. RECOMMENDATIONS: Stop PIP/tazobactam. Okay to Discharge from ID standpoint. I will sign off now. Lc Odell MD October 09, 2016 12:30
[2016-10-09] MEDS ORDERED: ERYT200S2 G-TUBE (13:52)
--- NOTE | 2016-10-09 13:57 | HHI.FF ---
Face to Face Verification Diagnosis: (1) Malfunctioning jejunostomy tube (2) UTI (urinary tract infection) (3) Sepsis (4) Parkinsons disease (5) Aspiration into airway (6) Decubitus ulcer of buttock, stage 3 (7) Shortness of breath dyspnea (8) Malnutrition (9) Pneumonia involving right lung (10) Dysphagia Physical Therapy Order: Evaluate and Treat Home Health Nursing Order: Medical education Nursing assessment with vital signs Instructions: J-G tube care I have seen patient Blair Mccoy Sr Corwin on 10/09/16. My clinical findings support the need for the requested home health care services because: Ltd mobility - disease progression Deconditioned w/ increased weakness Limited ability to care for self I certify that my clinical findings support that this patient is homebound because: Impaired cognitive ability/safety Unsteady gait/balance Unsafe to leave home unassisted Laura Salmeron MD October 09, 2016 13:57
[2016-10-09 14:18] LABS: C. DIFF EPI 027 PRESUMPTIVE NEGATIVE (NEGATIVE); C. DIFF TOXIN PCR NEGATIVE (NEGATIVE)
--- NOTE | 2016-10-09 15:47 | HHI.PR ---
Subjective Remarks Patient sitting in bed open eyes nonverbal G and J-tube functioning well I discussed with the caregiver she requested to call the daughter, I tried to call but no answer Discussed with ID cleared for discharge Objective Vitals Vital Signs Date Time Temp Pulse Resp B/P Pulse Ox O2 Delivery O2 Flow Rate FiO2 10/09/16 12:55 96.4 81 20 146/72 100 10/09/16 08:30 100 T-piece 6.00 28 10/09/16 08:29 100 T-piece 6.00 28 10/09/16 08:15 97.8 79 20 136/74 100 10/09/16 05:46 96.9 80 20 117/63 99 10/09/16 01:30 77 118/73 98 10/09/16 00:55 74 106/62 10/09/16 00:00 96.8 79 18 89/41 100 10/08/16 20:28 96.5 78 24 118/69 98 10/08/16 18:52 100 T-piece 28 10/08/16 16:00 98.0 78 19 118/80 100 I/O 10/08/16 10/08/16 10/08/16 10/09/16 10/09/16 10/09/16 07:00 15:00 23:00 07:00 15:00 23:00 Output Total 3100 ml 1500 ml 1100 ml Balance -3100 ml -1500 ml -1100 ml Output Urine Total 1550 ml 550 ml 1100 ml Stool Total 1550 ml Drainage Total 950 ml # Bowel Movements 0 Result Diagram: 10/09/16 0900 10/09/16 0900 Objective Remarks - GENERAL: This is a frail,chronically ill 89 years old on T piece CARDIOVASCULAR: Regular rate and rhythm without murmurs, gallops, or rubs. RESPIRATORY: Decreased breath sounds. GASTROINTESTINAL: Abdomen soft, non-tender, nondistended. Normal active bowel sounds MUSCULOSKELETAL: Severe upper lower Extremities contractions without edema. NEURO: Nonverbal, closed eyes Procedures PEG replacement- 09/22 G NJ tube revision 10/04 Date of Insertion: Sep 22, 2016 A/P Assessment and Plan 09/30:D/W GI BENCH ASSEMBLER recommended avoiding boluses in the J-tube, discussed with nurse, Kingsley catheter leaking recommended changing if needed 10/01: Continue current care with antibiotic or ID, monitor for any fever, monitor CBC, KCl by mouth to place low potassium, Vasotec as needed to cover for elevated pressure, monitor blood pressure Medications administered NG tube comes out of the ET tube per the nurse will discuss with GI 10/02: Continue current care, J-tube o'clock top discussed with GI will get IR to review, discussed with nurse 10/03: Patient went to IR for J-tube revision, continue current treatment GI following for possible continuing aspiration 10/04: J-tube revised by IR, start to feed per GI recommendation, discussed with the daughter over the phone 10/05: Discussed with the nurse and with the GI BENCH ASSEMBLER WELL as the daughter, plan to examine the G-NJ tube to rule out aspiration by the GI 10/06: Continue monitoring G and J-tube functioning, severe hypokalemia 2.5, will be replaced iv, hypophosphatemia and-hypomagnesemia also will be replaced, repeat BMP mag phosphatemia 10/07: G and J-tube functioning well today, hypokalemia 2.6 we will repeat to verify and replace iv if confirmed low, ID recommend continue Zosyn chest x-ray on Sunday and possibly DC iv antibiotic on Sunday 10/08: G and J tube working well, persistent hypokalemia,? diarrhea will check C. difficile, by mouth for MEQ KCl today 10/09: G and J-tube still functioning well, hypokalemia improved, C. difficile PCR still pending if negative patient can probably be discharged home with home health care I discussed with the caregiver she requested to call the daughter which I did that there was no answer A/P: 89 yers old male- advanced Parkinson's disease, S/P CVA baseline- is total care , not interactive- admitted for MRSA Sepsis- on Vancomycin PNA-- Aspiration- sputum- Pseudomonas E coli UTI- on chronic kingsley - changed 09/22 Increase Levsin suctioning q 4 schedule and q 2 prn. Levsin SL On Vancomycin. and Zosyrobin Odell ff d/w daughter that - patient can also aspirate from his own secretions GT malfunction-PEG changed 09/22 - GIff for recommendations -r no bolus TF to decrease risk of aspiration G-J tube revised by IR 10/04, restarted , ff by GI tracheostomy in place- capped. duonebs q 4. suctioning prn Advanced Parkinson's - extremities- flexion contractures. continue meds stage 2 decubitus ulcer -wound care team ff History of hypothyroidism - continue on synthroid pericolace once daily Laura Brumfield MD October 09, 2016 15:47
--- NOTE | 2016-10-09 15:57 | HHI.DS ---
Discharge Summary Admission Date Sep 22, 2016 at 16:11 Discharge Date: October 11, 2016 Admitting Diagnosis complicated urinary tract infection, obstructed GJ tube (1) Pneumonia involving right lung ICD Code: J18.9 (2) Decubitus ulcer of buttock, stage 3 ICD Code: L89.303 (3) Shortness of breath dyspnea ICD Code: R06.02 (4) Aspiration into airway ICD Code: T17.908A (5) UTI (urinary tract infection) ICD Code: N39.0 (6) Sepsis ICD Code: A41.9 (7) Dysphagia ICD Code: R13.10 (8) Malfunctioning jejunostomy tube ICD Code: K94.13 (9) Occluded feeding tube Procedures PEG replacement- 09/22 G NJ tube revision 10/04 See below for further info Brief History - From Admission Mr. Olivia is in 89-year-old male with a known history of advanced Parkinson's disease, multiple contractures, tracheostomy, sacral decubitus ulcer, and PEG tube. Patient is seen at bedside with daughter and home nurse, patient is nonverbal history is taken from family at bedside. Patient presents to the ED for a clogged PEG tube. IR was consulted to replace PEG tube, status post replacement today. Patient has an indwelling urinary catheter with history of tension. Per patient family, catheter was changed last week. Patient does live at home with 24-hour care from family/nurse. Patient is a little diaphoretic at this time, family denies noticing any previously sweating, fevers. CBC/BMP: 10/09/16 0900 10/09/16 0900 Significant Findings Laboratory Tests Test 10/07/16 10/07/16 10/08/16 10/09/16 11:50 16:40 07:04 09:00 Red Blood Count 4.30 MIL/MM3 4.07 MIL/MM3 (4.50-5.90) (4.50-5.90) Hemoglobin 11.0 GM/DL 10.8 GM/DL (13.0-17.0) (13.0-17.0) Hematocrit 35.3 % 33.4 % (39.0-51.0) (39.0-51.0) Mean Corpuscular Hemoglobin 25.6 PG 26.5 PG (27.0-34.0) (27.0-34.0) Mean Corpuscular Hemoglobin 31.2 % Concent (32.0-36.0) Red Cell Distribution Width 19.2 % 19.3 % (11.6-17.2) (11.6-17.2) Mean Platelet Volume 6.5 FL 6.9 FL (7.0-11.0) (7.0-11.0) Eosinophils (%) (Auto) 13.9 % 14.6 % (0.0-4.0) (0.0-4.0) Eosinophils # (Auto) 0.9 TH/MM3 1.2 TH/MM3 (0-0.4) (0-0.4) Potassium Level 2.6 MEQ/L 2.4 MEQ/L 2.8 MEQ/L 3.4 MEQ/L (3.5-5.1) (3.5-5.1) (3.5-5.1) (3.5-5.1) Chloride Level 97 MEQ/L 96 MEQ/L 97 MEQ/L (98-107) (98-107) (98-107) Carbon Dioxide Level 33.9 MEQ/L 34.7 MEQ/L (21.0-32.0) (21.0-32.0) Blood Urea Nitrogen 6 MG/DL (7-18) Random Glucose 115 MG/DL 109 MG/DL (74-106) (74-106) Calcium Level 8.2 MG/DL 7.9 MG/DL 8.1 MG/DL (8.5-10.1) (8.5-10.1) (8.5-10.1) Phosphorus Level 2.2 MG/DL (2.5-4.9) Creatinine 0.57 MG/DL 0.55 MG/DL (0.60-1.30) (0.60-1.30) Monocytes (%) (Auto) 8.5 % (0.0-8.0) PE at Discharge - GENERAL: This is a frail,chronically ill 89 years old on T piece CARDIOVASCULAR: Regular rate and rhythm without murmurs, gallops, or rubs. RESPIRATORY: Decreased breath sounds. GASTROINTESTINAL: Abdomen soft, non-tender, nondistended. Normal active bowel sounds MUSCULOSKELETAL: Severe upper lower Extremities contractions without edema. NEURO: Nonverbal, closed eyes Hospital Course 89 years old male with advanced Parkinson disease and severe multiple contractures tracheostomy sacral diabetes ulcer and PEG tube nonverbal admitted for clogged PEG tube, IR consulted for placement, patient also had urinary retention Klein catheter inserted, through hospitalization patient continued to have problem with his PEG tube, GI consulted, replacement with G and J-tube has been done patient placed on erythromycin to improve motility. patient also had Escherichia coli UTI as well as aspiration pneumonia versus sepsis, i.e. consulted patient was on iv antibiotic. Eventually he stabilized cleared of antibiotic, rectal tube placed to improve decubitus ulcer healing. [id number] encounter performed with the patient on discharge day, as well as physical exam, summary of hospitalization course and postdischarge plan has been D/W the patient caregiver and called the daughter D/W nurse D/W bilingual case manager. Discharge medications reviewed and printed and signed, post discharge follow up visit with PCP and other specialist as well as Brief hospital course and discharge summary has been placed. Pt Condition on Discharge: Stable Discharge Disposition: Disch w/ Home Health Serv Discharge Time: > 30 minutes Discharge Instructions DIET: Follow Instructions for: On Tube Feeding Activities you can perform: See Additionl Instruction Other Activity Instructions: per PT Follow up Referrals: PCP Follow-up - 2 Weeks with Denice Stratton Jr., MD New Orders: BASIC METABOLIC PROF - 2-3 Days New Medications: Erythromycin Ethylsuccinate Liq (E.E.S. Liq) 200 Mg/5 Ml Susp 200 MG G-TUBE Q8HR gi #45 TAB Continued Medications: Budesonide Neb (Budesonide Neb) 0.5 Mg/2 Ml Neb 0.5 MG NEB Q12HR Breathing Treatment #30 Ref 0 NEBULE Carbidopa-Levodopa (Sinemet) 25-100 Mg Tab 2 TAB PO Q6HR Parkinson Disease Mgmt #90 Ref 0 TAB Famotidine (Famotidine) 20 Mg Tab 20 MG PO BID #60 Ref 0 TAB Hyoscyamine (Hyoscyamine) 0.125 Mg Tab 0.125 MG PO Q6HR Gastrointestinal disorders Ref 0 TAB Ipratropium-Albuterol Neb (Duoneb) 0.5-2.5 Mg/3 Ml Neb 1 NEBULE INH Q6HR NEB SHORTNESS OF BREATH #120 Ref 0 NEBULE Latanoprost Opth Drops (Xalatan Opth Drops) 0.005% Drops 1 DROP EACH EYE HS Glaucoma #2.5 Ref 0 ML Levothyroxine (Synthroid) 112 Mcg Tab 112 MCG PO DAILY@0600 Thyroid #30 Ref 0 TAB Oxybutynin (Ditropan) 5 Mg Tab 5 MG PO Q12HR Urinary Symptom Managemen #60 Ref 0 TAB Pramipexole (Mirapex) 0.25 Mg Tab 0.25 MG PO Q6HR Parkinson Disease Mgmt #60 Ref 0 TAB Laura Salmeron MD October 09, 2016 15:57
[2016-10-09] MEDS: LATANOPROST 0.005% OPHT SOLN 2.5 ML BTL EACH EYE SCH (23:55)
[2016-10-10] VITALS (9 sets, daily range): BP systolic 95–142; BP diastolic 51–67; PULSE 77–88; RESP 20–28; TEMP 97.4–99; O2SAT 98–100
[2016-10-10] MEDS: SODIUM CHLORIDE 5% OPHT SOLN 15 ML BTL EACH EYE SCH ×5 (01:06→23:41)
[2016-10-10] MEDS: ERYTHROMYCIN ETHYLSUCCINATE 200 MG/5 ML SUSP 100 ML BOTTLE G-TUBE SCH ×3 (06:00→21:27)
[2016-10-10] MEDS: LEVOTHYROXINE SODIUM 112 MCG TAB PO SCH (06:08)
[2016-10-10] MEDS: CARBIDOPA/LEVODOPA 25 MG/100 MG TAB PO SCH ×4 (06:08→23:40)
[2016-10-10] MEDS: PRAMIPEXOLE DIHYDROCHLORIDE 0.25 MG TAB PO SCH ×4 (06:08→23:40)
[2016-10-10] MEDS: NYSTATIN 100,000 U/GM PWD 15 GM BTL TOPICAL SCH ×3 (06:09→23:40)
[2016-10-10] MEDS: RESP: BUDESONIDE 0.5 MG/2 ML NEB NEB SCH ×2 (08:29→20:12)
[2016-10-10] MEDS: SODIUM CHLORIDE 0.9% FLUSH 10 ML FLUSH IV FLUSH SCH ×2 (08:40→21:27)
[2016-10-10] MEDS: FAMOTIDINE 20 MG TAB PO SCH ×2 (08:40→21:26)
[2016-10-10] MEDS: DOCUSATE SODIUM 50 MG/SENNA 8.6 MG TAB G-TUBE SCH (08:42)
[2016-10-10] MEDS ORDERED: NYST10007 TOPICAL (11:18)
--- NOTE | 2016-10-10 12:37 | HHI.PR ---
Subjective Remarks Patient stable in bed open eyes, still having loose stool and rectal tube however repeated C. difficile PCR is still negative Plan to discharge home with home health and family care Discussed with the daughter today in length and addressed all her concerns she requested nystatin powder prescription also requested to keep the rectal tube for another couple of days until diarrhea improves, she requested Imodium X to her that may worsen his peristalsis G and J-tube function. Objective Vitals Vital Signs Date Time Temp Pulse Resp B/P Pulse Ox O2 Delivery O2 Flow Rate FiO2 10/10/16 08:32 100 Face Tent 28 10/10/16 08:32 100 T-piece 3.00 28 10/10/16 08:00 97.7 88 28 112/54 100 10/10/16 06:30 98.0 88 21 142/67 98 10/10/16 00:00 97.6 78 20 102/51 98 10/09/16 22:00 97.3 85 23 168/76 100 10/09/16 20:36 100 T-piece 28 10/09/16 16:22 96.1 73 20 128/83 100 10/09/16 12:55 96.4 81 20 146/72 100 I/O 10/09/16 10/09/16 10/09/16 10/10/16 10/10/16 10/10/16 07:00 15:00 23:00 07:00 15:00 23:00 Intake Total 0 ml 0 ml Output Total 1100 ml 400 ml 700 ml Balance -1100 ml -400 ml -700 ml Intake Oral 0 ml 0 ml Output Urine Total 1100 ml 400 ml 600 ml Stool Total 100 ml # Bowel Movements 0 0 Result Diagram: 10/09/16 0900 10/09/16 0900 Objective Remarks - GENERAL: This is a frail,chronically ill 89 years old on T piece CARDIOVASCULAR: Regular rate and rhythm without murmurs, gallops, or rubs. RESPIRATORY: Decreased breath sounds. GASTROINTESTINAL: Abdomen soft, non-tender, nondistended. Normal active bowel sounds MUSCULOSKELETAL: Severe upper lower Extremities contractions without edema. NEURO: Nonverbal, open eyes today Procedures PEG replacement- 09/22 G NJ tube revision 10/04 See below for further info Date of Insertion: Sep 22, 2016 A/P Problem List: (1) Pneumonia involving right lung ICD Code: J18.9 Status: Acute (2) Decubitus ulcer of buttock, stage 3 ICD Code: L89.303 Status: Chronic (3) Shortness of breath dyspnea ICD Code: R06.02 Status: Acute (4) Aspiration into airway ICD Code: T17.908A Status: Acute (5) UTI (urinary tract infection) ICD Code: N39.0 Status: Acute (6) Sepsis ICD Code: A41.9 Status: Acute (7) Dysphagia ICD Code: R13.10 Status: Chronic (8) Malfunctioning jejunostomy tube ICD Code: K94.13 Status: Acute (9) Occluded feeding tube Status: Acute Assessment and Plan 09/30:D/W GI FILM AND VIDEO EDITOR recommended avoiding boluses in the J-tube, discussed with nurse, Kingsley catheter leaking recommended changing if needed 10/01: Continue current care with antibiotic or ID, monitor for any fever, monitor CBC, KCl by mouth to place low potassium, Vasotec as needed to cover for elevated pressure, monitor blood pressure Medications administered NG tube comes out of the ET tube per the nurse will discuss with GI 10/02: Continue current care, J-tube o'clock top discussed with GI will get IR to review, discussed with nurse 10/03: Patient went to IR for J-tube revision, continue current treatment GI following for possible continuing aspiration 10/04: J-tube revised by IR, start to feed per GI recommendation, discussed with the daughter over the phone 10/05: Discussed with the nurse and with the GI FILM AND VIDEO EDITOR WELL as the daughter, plan to examine the G-NJ tube to rule out aspiration by the GI 10/06: Continue monitoring G and J-tube functioning, severe hypokalemia 2.5, will be replaced iv, hypophosphatemia and-hypomagnesemia also will be replaced, repeat BMP mag phosphatemia 10/07: G and J-tube functioning well today, hypokalemia 2.6 we will repeat to verify and replace iv if confirmed low, ID recommend continue Zosyn chest x-ray on Sunday and possibly DC iv antibiotic on Sunday 10/08: G and J tube working well, persistent hypokalemia,? diarrhea will check C. difficile, by mouth for MEQ KCl today 10/09: G and J-tube still functioning well, hypokalemia improved, C. difficile PCR still pending if negative patient can probably be discharged home with home health care I discussed with the caregiver she requested to call the daughter which I did that there was no answer 10/09: Patient stable, GJ tube functioning, discharge order placed yesterday plan to go home with home health care, discussed with the family the daughter today addressed all her concerns Will check BMP today to address potassium replacement need. Still having loose stool in the rectal tube, I discussed with GI, Imodium not recommended due to possible side effect of affecting peristalsis GI motility, GI will address measures to improve diarrhea 10/10: Discussed with the daughter plan for discharge home with home health care today A/P: 89 yers old male- advanced Parkinson's disease, S/P CVA baseline- is total care , not interactive- admitted for MRSA Sepsis- on Vancomycin PNA-- Aspiration- sputum- Pseudomonas E coli UTI- on chronic kingsley - changed 09/22 Increase Levsin suctioning q 4 schedule and q 2 prn. Levsin SL On Vancomycin. and Zosyn Dr. Odell ff d/w daughter that - patient can also aspirate from his own secretions GT malfunction-PEG changed 09/22 - GIff for recommendations -r no bolus TF to decrease risk of aspiration G-J tube revised by IR 10/04, restarted , ff by GI tracheostomy in place- capped. duonebs q 4. suctioning prn Advanced Parkinson's - extremities- flexion contractures. continue meds stage 2 decubitus ulcer -wound care team ff History of hypothyroidism - continue on synthroid pericolace once daily TEDS Problem Qualifiers (1) UTI (urinary tract infection): Qualified Code: T83.511A - Urinary tract infection associated with indwelling urethral catheter, initial encounter Laura Salmeron MD October 10, 2016 12:37
[2016-10-10 15:45] LABS: BICARBONATE 34.6 MEQ/L (21.0-32.0); POTASSIUM 3.1 MEQ/L (3.5-5.1)
[2016-10-10] MEDS ORDERED: POTA1TAB4 PO (16:21)
[2016-10-10] MEDS ORDERED: POTASSIUM CHLORIDE 20 MEQ PWD PACKET G-TUBE ONE (16:30)
[2016-10-10] MEDS: POTASSIUM CHLORIDE 10 MEQ CONTROLLED RELEASE TAB PO SCH ×2 (16:38→21:00)
[2016-10-10] MEDS: LATANOPROST 0.005% OPHT SOLN 2.5 ML BTL EACH EYE SCH (21:27)
[2016-10-11 00:30] VITALS: BP 165/86; PULSE 99; RESP 22; TEMP 97; O2SAT 99
[2016-10-11 04:30] VITALS: BP 166/74; PULSE 80; RESP 20; TEMP 97.7; O2SAT 100
[2016-10-11] MEDS: PRAMIPEXOLE DIHYDROCHLORIDE 0.25 MG TAB PO SCH ×2 (05:27→14:22)
[2016-10-11] MEDS: CARBIDOPA/LEVODOPA 25 MG/100 MG TAB PO SCH ×2 (05:27→14:22)
[2016-10-11] MEDS: ERYTHROMYCIN ETHYLSUCCINATE 200 MG/5 ML SUSP 100 ML BOTTLE G-TUBE SCH ×2 (05:27→14:00)
[2016-10-11] MEDS: SODIUM CHLORIDE 5% OPHT SOLN 15 ML BTL EACH EYE SCH ×2 (05:27→12:00)
[2016-10-11] MEDS: NYSTATIN 100,000 U/GM PWD 15 GM BTL TOPICAL SCH ×2 (05:28→14:24)
[2016-10-11] MEDS: LEVOTHYROXINE SODIUM 112 MCG TAB PO SCH (06:15)
[2016-10-11 08:30] VITALS: BP 111/56; PULSE 87; RESP 19; TEMP 97.9; O2SAT 98
[2016-10-11] MEDS: RESP: BUDESONIDE 0.5 MG/2 ML NEB NEB SCH (08:35)
[2016-10-11 08:40] VITALS: O2SAT 98
[2016-10-11] MEDS: DOCUSATE SODIUM 50 MG/SENNA 8.6 MG TAB G-TUBE SCH (10:11)
[2016-10-11] MEDS: SODIUM CHLORIDE 0.9% FLUSH 10 ML FLUSH IV FLUSH SCH (10:12)
[2016-10-11] MEDS: FAMOTIDINE 20 MG TAB PO SCH (10:12)
[2016-10-11 12:51] VITALS: BP 128/61; PULSE 85; RESP 19; TEMP 97.8; O2SAT 98
--- NOTE | 2016-10-11 12:54 | HHI.PR ---
Subjective Remarks Stable embedded open eyes no change or complain Plan to discharge home with home health care today Objective Vitals Vital Signs Date Time Temp Pulse Resp B/P Pulse Ox O2 Delivery O2 Flow Rate FiO2 10/11/16 12:51 97.8 85 19 128/61 98 10/11/16 08:40 98 T-piece 28 10/11/16 08:30 97.9 87 19 111/56 98 10/11/16 04:30 97.7 80 20 166/74 100 10/11/16 00:30 97.0 99 22 165/86 99 10/10/16 21:30 99.0 85 22 101/57 100 10/10/16 20:16 100 T-piece 28 10/10/16 20:12 100 T-piece 10/10/16 16:45 97.6 88 22 95/53 100 I/O 10/10/16 10/10/16 10/10/16 10/11/16 10/11/16 10/11/16 07:00 15:00 23:00 07:00 15:00 23:00 Intake Total 0 ml 810 ml Output Total 700 ml 250 ml 700 ml Balance -700 ml -250 ml 110 ml Intake Oral 0 ml 0 ml Tube Feeding 510 ml Other 300 ml Output Urine Total 600 ml 200 ml 400 ml Stool Total 100 ml 50 ml 300 ml Result Diagram: 10/09/16 0900 10/11/16 1151 Objective Remarks - GENERAL: This is a frail,chronically ill 89 years old on T piece CARDIOVASCULAR: Regular rate and rhythm without murmurs, gallops, or rubs. RESPIRATORY: Decreased breath sounds. GASTROINTESTINAL: Abdomen soft, non-tender, nondistended. Normal active bowel sounds MUSCULOSKELETAL: Severe upper lower Extremities contractions without edema. NEURO: Nonverbal, open eyes today Procedures PEG replacement- 09/22 G NJ tube revision 10/04 See below for further info Date of Insertion: Sep 22, 2016 A/P Problem List: (1) Pneumonia involving right lung ICD Code: J18.9 Status: Acute (2) Decubitus ulcer of buttock, stage 3 ICD Code: L89.303 Status: Chronic (3) Shortness of breath dyspnea ICD Code: R06.02 Status: Acute (4) Aspiration into airway ICD Code: T17.908A Status: Acute (5) UTI (urinary tract infection) ICD Code: N39.0 Status: Acute (6) Sepsis ICD Code: A41.9 Status: Acute (7) Dysphagia ICD Code: R13.10 Status: Chronic (8) Malfunctioning jejunostomy tube ICD Code: K94.13 Status: Acute (9) Occluded feeding tube Status: Acute Assessment and Plan 10/11: Discharge home with home health care today A/P: 89 yers old male- advanced Parkinson's disease, S/P CVA baseline- is total care , not interactive- admitted for MRSA Sepsis- on Vancomycin PNA-- Aspiration- sputum- Pseudomonas E coli UTI- on chronic kingsley - changed 09/22 Increase Levsin suctioning q 4 schedule and q 2 prn. Levsin SL On Vancomycin. and Kayla grimaldo d/w daughter that - patient can also aspirate from his own secretions GT malfunction-PEG changed 09/22 - GIff for recommendations -r no bolus TF to decrease risk of aspiration G-J tube revised by IR 10/04, restarted , ff by GI tracheostomy in place- capped. duonebs q 4. suctioning prn Advanced Parkinson's - extremities- flexion contractures. continue meds stage 2 decubitus ulcer -wound care team ff History of hypothyroidism - continue on synthroid pericolace once daily TEDS Problem Qualifiers (1) UTI (urinary tract infection): Qualified Code: T83.511A - Urinary tract infection associated with indwelling urethral catheter, initial encounter Laura Salmeron MD October 11, 2016 12:53 89 yers old male- advanced Parkinson's disease, S/P CVA baseline- is total care , not interactive- admitted for MRSA Sepsis- on Vancomycin PNA-- Aspiration- sputum- Pseudomonas E coli UTI- on chronic kingsley - changed 09/22 Increase Levsin suctioning q 4 schedule and q 2 prn. Levsin SL On Vancomycin. and Kayla grimaldo d/w daughter that - patient can also aspirate from his own secretions GT malfunction-PEG changed 09/22 - GIff for recommendations -r no bolus TF to decrease risk of aspiration G-J tube revised by IR 10/04, restarted , ff by GI tracheostomy in place- capped. duonebs q 4. suctioning prn Advanced Parkinson's - extremities- flexion contractures. continue meds stage 2 decubitus ulcer -wound care team ff History of hypothyroidism - continue on synthroid pericolace once daily TEDS Problem Qualifiers (1) UTI (urinary tract infection): Qualified Code: T83.511A - Urinary tract infection associated with indwelling urethral catheter, initial encounter Laura Salmeron MD October 11, 2016 12:53
[2016-10-11] MEDS ORDERED: POTASSIUM CHLORIDE 20 MEQ CONTROLLED RELEASE TAB PO ONE (13:00)
[2016-10-11] MEDS ORDERED: POTASSIUM CHLORIDE 20 MEQ PWD PACKET PO ONE (13:00)
--- NOTE | 2016-10-18 17:01 | PQ ---
Physician Query Response Document PATIENT: QUINTIN GLORIA : [id number] ADMIT DATE: 09/22/2016 4:11 PM DISCH DATE: 10/11/2016 5:55 PM RESPONDING PROVIDER #: trav QUERY TEXT: Conflicting Documentation Clarification A single mention or documentation of multiple diagnoses for the same clinical presentation appears in the record. Please clarify the diagnosis/diagnoses. Please also document if the condition is: -- Confirmed and current -- Confirmed, treated and resolved -- Ruled out -- Sepis -- SIRS -- Bacteremia --Other, please specify The patient's Clinical Indicators include: According to your progress note dated 10/04/16 : MRSA Sepsis- on Vancomycin According to Dr. Odell (Infectious Disease) progress noted dated 10/03/16: Bacteremia due to MRSA. Improved. 09/22/16 WBC 7.0, Nuet % 62.9, Lactic Acid 0.8 09/22/16 Vital signs: Temp 99.2, HR 85, Resp 16, B/P 106/57, Pulse Ox 95% Query created by: Kyree Beauchamp on 10/05/2016 10:09 AM RESPONSE TEXT: MRSA bacteremia Electronically signed by: Laura Salmeron MD 10/18/2016 4:57 PM
== END 2016-10-11 17:55 | disposition home health service (06) | DRG 871 ==
LOC: NEPE 12:58 → NEDA 16:11 → OBSVTOIN 16:11 → N05A 20:30
PROVIDERS: ADMIT Hospitalist; ATTEND Hospitalist
PROC: 0D2DXUZ Change Feeding Device in Lower Intestinal Tract, External Approach (ICD-10-PCS; principal; 2016-09-22)
PROC: 0T9B70Z Drainage of Bladder with Drainage Device, Via Natural or Artificial Opening (ICD-10-PCS; 2016-09-22)
PROC: 0D2DXUZ Change Feeding Device in Lower Intestinal Tract, External Approach (ICD-10-PCS; 2016-10-03)
DX: A41.02 Sepsis due to Methicillin resistant Staphylococcus aureus (principal); J15.1 Pneumonia due to Pseudomonas; L89.302 Pressure ulcer of unspecified buttock, stage 2; Z93.0 Tracheostomy status; N39.0 Urinary tract infection, site not specified; G20 Parkinson's disease; G30.9 Alzheimer's disease, unspecified; K94.23 Gastrostomy malfunction; T83.511A Infection and inflammatory reaction due to indwelling urethral catheter, initial encounter; F02.80 Dementia in other diseases classified elsewhere, unspecified severity, without behavioral disturbance, psychotic disturbance, mood disturbance, and anxiety; K94.13 Enterostomy malfunction; Y83.3 Surgical operation with formation of external stoma as the cause of abnormal reaction of the patient, or of later complication, without mention of misadventure at the time of the procedure; Z74.01 Bed confinement status; K21.9 Gastro-esophageal reflux disease without esophagitis; N28.1 Cyst of kidney, acquired; Y84.6 Urinary catheterization as the cause of abnormal reaction of the patient, or of later complication, without mention of misadventure at the time of the procedure; Z85.46 Personal history of malignant neoplasm of prostate; Z86.73 Personal history of transient ischemic attack (TIA), and cerebral infarction without residual deficits; B96.20 Unspecified Escherichia coli [E. coli] as the cause of diseases classified elsewhere; K56.41 Fecal impaction; E03.9 Hypothyroidism, unspecified; I10 Essential (primary) hypertension; R19.7 Diarrhea, unspecified; R13.10 Dysphagia, unspecified; E87.6 Hypokalemia; E83.39 Other disorders of phosphorus metabolism
CPT/HCPCS: 49452; 71010; 71260; 74000; 74177; 74250; 76937; 80048; 80053; 80202; 81001; 82550; 82565; 82948; 83605; 83735; 84100; 84132; 85025; 86403; 87040; 87070; 87077; 87086; 87186; 87205; 87493; 93005; 94640; 94762; 96360; A7521; C1769; C1874; C1887; J0692; J0696; J2543; J3370; J3475; J3480; J7030; J7042; J7050; J7626; Q9963; Q9967